=== PATIENT | female | born 1980 | race Caucasian/White ===

== ENCOUNTER 2020-08-29 11:34 | Outpatient (REF) | payer MEDICAID, SELFPAY ==
--- NOTE | ~2020-08-29 | US_ITS ---
EXAMINATION: PELVIC ULTRASOUND CLINICAL INFORMATION: Dysmenorrhea COMPARISON: Previous CT of the abdomen and pelvis April 2017 TECHNIQUE: Transabdominal and transvaginal pelvic ultrasound was performed. Transvaginal exam was performed for better visualization of the uterus and ovaries. FINDINGS: The uterus is anteverted and measures 11.9 x 4.3 x 5.9 cm in dimension. No focal uterine lesion is seen. Endometrial thickness is normal measuring 1 cm. The cervix is normal. The ovaries are seen transabdominally only. The ovaries are normal-appearing. The right ovary measures 4.3 x 2.2 x 3.1 cm and the left ovary measures 4.2 x 1.9 x 3.4 cm. No focal ovarian lesion is seen. There is no fluid in the pelvis. US/US pelvic complete IMPRESSION: Unremarkable exam.
--- NOTE | ~2020-08-29 | US_ITS ---
EXAMINATION: PELVIC ULTRASOUND CLINICAL INFORMATION: Dysmenorrhea COMPARISON: Previous CT of the abdomen and pelvis April 2017 TECHNIQUE: Transabdominal and transvaginal pelvic ultrasound was performed. Transvaginal exam was performed for better visualization of the uterus and ovaries. FINDINGS: The uterus is anteverted and measures 11.9 x 4.3 x 5.9 cm in dimension. No focal uterine lesion is seen. Endometrial thickness is normal measuring 1 cm. The cervix is normal. The ovaries are seen transabdominally only. The ovaries are normal-appearing. The right ovary measures 4.3 x 2.2 x 3.1 cm and the left ovary measures 4.2 x 1.9 x 3.4 cm. No focal ovarian lesion is seen. There is no fluid in the pelvis. US/US transvaginal IMPRESSION: Unremarkable exam.
== END 2020-08-29 11:35 | disposition home or self-care (01) ==
LOC: HO.US 11:34
PROVIDERS: PCP Internal Medicine; Visit Provider Internal Medicine
DX: N94.3 Premenstrual tension syndrome (principal); N94.6 Dysmenorrhea, unspecified
CPT/HCPCS: 76830; 76856

== ENCOUNTER 2021-01-04 09:41 | Emergency (ER) | payer MEDICAID, SELFPAY ==
--- NOTE | ~2021-01-04 | XR_ITS ---
EXAMINATION: CHEST AND RIGHT ANKLE X-RAY CLINICAL INFORMATION: Palpitations, chest pain and shortness of breath. Right ankle trauma. COMPARISON: None TECHNIQUE: One view of the chest and 3 views of the right ankle FINDINGS: Chest: The cardiac and mediastinal contours are normal. The lungs are clear. There is no pleural effusion or pneumothorax. Bony structures are unremarkable. Right ankle: Bone alignment is normal. No fracture or dislocation is seen. The ankle mortise is normal. There is a plantar calcaneal spur. There is lateral soft tissue swelling. XR/XR chest 1V IMPRESSION: Chest: Unremarkable exam. Right ankle: Lateral soft tissue swelling. No fracture seen.
--- NOTE | ~2021-01-04 | XR_ITS ---
EXAMINATION: CHEST AND RIGHT ANKLE X-RAY CLINICAL INFORMATION: Palpitations, chest pain and shortness of breath. Right ankle trauma. COMPARISON: None TECHNIQUE: One view of the chest and 3 views of the right ankle FINDINGS: Chest: The cardiac and mediastinal contours are normal. The lungs are clear. There is no pleural effusion or pneumothorax. Bony structures are unremarkable. Right ankle: Bone alignment is normal. No fracture or dislocation is seen. The ankle mortise is normal. There is a plantar calcaneal spur. There is lateral soft tissue swelling. XR/XR ankle RT 2V IMPRESSION: Chest: Unremarkable exam. Right ankle: Lateral soft tissue swelling. No fracture seen.
[2021-01-04 09:55] VITALS: BP 137/80; BP 182/78; PULSE 78; PULSE 90; RESP 16; TEMP 36.9; O2SAT 98; BMI 39.9
--- NOTE | 2021-01-04 09:57 | ECG_ITS ---
Test Reason : HEART PALP Blood Pressure : / mmHG Vent. Rate : 081 BPM Atrial Rate : 081 BPM P-R Int : 178 ms QRS Dur : 092 ms QT Int : 384 ms P-R-T Axes : 023 036 009 degrees QTc Int : 446 ms Normal sinus rhythm Possible Left atrial enlargement Borderline ECG No previous ECGs available Referred By: Sunitha Kahn Electronically Signed By:MAGGI SUTTON MD
[2021-01-04 11:11] VITALS: BP 118/80; PULSE 79
[2021-01-04 11:12] VITALS: BP 137/93; BP 138/84; PULSE 83; PULSE 92
[2021-01-04 11:27] LABS: MANUAL DIFF FLAG NO
[2021-01-04] MEDS: 0.9 % Sodium Chloride 1,000 ML 999 ML IVCONT (11:27)
[2021-01-04 11:30] LABS: Basophils Percent Auto 0.3 % (0-2); Eosinophils Absolute Auto 0.1 X10*3/uL (0.0-0.4); Eosinophils Percent Auto 0.9 % (0-4); Hematocrit 37.2 % (37-47); Hemoglobin 11.7 g/dl (12.0-16.0); Imm Gran Abs Auto 0.07 X10*3/uL (0.00-0.03); Imm Gran Pct Auto 0.6 % (0.0-0.4); Lymphocytes Absolute Auto 1.4 X10*3/uL (1.2-4.9); Lymphocytes Percent Auto 12.6 % (20-40); Mean Corpuscular HGB Conc 31.5 g/dl (31.0-35.0); Mean Corpuscular Hemoglobin 25.9 pg (27.0-33.0); Mean Corpuscular Volume 82.5 fL (80-98); Mean Platelet Volume 11.2 fL (9.4-12.3); Monocytes Absolute Auto 0.7 X10*3/uL (0.1-1.2); Monocytes Percent Auto 5.8 % (2-11); Neutrophils Absolute Auto 8.9 X10*3/uL (2.0-8.3); Neutrophils Percent Auto 79.8 % (45-73); Platelet Count 289 X10*3/uL (160-400); Red Blood Count 4.51 X10*6/uL (4.20-5.50); Red Cell Distribution Width 14.6 % (11.0-16.0); White Blood Count 11.2 X10*3/uL (4.8-10.8)
[2021-01-04 11:35] LABS: Glucose Urine UA NEG (NEG); Leukocyte Esterase Urine NEG (NEG); Nitrite Urine NEG (NEG); Specific Gravity - Urine 1.025 (1.005-1.025); Urine Blood NEG (NEG); Urine Ketones NEG (NEG); Urine Protein 1+ MG/DL (NEG-TRACE)
[2021-01-04 11:36] LABS: Appearance Urine HAZY; Color Urine YELLOW
[2021-01-04 11:37] LABS: UPreg QC Valid YES; Urine Pregnancy NEGATIVE (NEGATIVE)
[2021-01-04 11:42] LABS: Mucus Urine 1+ /LPF; RBC Urine 0 /HPF (0); Squamous Epithelial Cell Urine 1+ /LPF; WBC Urine 0 /HPF (0-4)
[2021-01-04 11:57] LABS: Troponin-I High Sensitivity < 3.5 ng/L (<3.5-17.0)
[2021-01-04 12:01] LABS: Alanine Aminotransferase 18 U/L (0-31); Alkaline Phosphatase 82 U/L (39-117); Anion Gap 13 (12-20); Aspartate Amino Transferase 24 U/L (5-31); Bilirubin Direct < 0.2 mg/dL (0.0-0.5); Bilirubin Total 0.2 mg/dL (0.0-1.0); Blood Urea Nitrogen 11 mg/dL (9-16); Carbon Dioxide 22 mmol/L (22-29); Chloride 109 mmol/L (96-108); Creatinine Clr Calc Pharmacy 120.7; Estimated Glomerular Filt Rate > 60; Glucose Random 106 mg/dL (60-115); Magnesium 2.2 mg/dL (1.6-2.6); Potassium 4.8 mmol/L (3.3-5.1); Sodium 139 mmol/L (135-145); Total Protein 7.1 g/dL (6.5-8.0)
[2021-01-04 12:05] VITALS: BP 129/84; PULSE 80; RESP 16; TEMP 36.8; O2SAT 98
[2021-01-04 12:14] LABS: TSH reflex Free T4 0.92 uIU/mL (0.32-4.0)
--- NOTE | 2021-01-04 12:16 | ED.GENADULT ---
HPI - General Adult General Chief complaint: General Medical Stated complaint: R Foot Pain Time Seen by Provider: 01/04/21 09:57 Source: patient and EMS Mode of arrival: EMS History of Present Illness HPI narrative: 40-year-old female with a past medical history of anxiety, PTSD, presenting to the ED via EMS complaining of right ankle pain/ swelling after missing a step and rolling ankle [employer]. admits was trying to catch her lift and missed the last step, fell down last stair caught herself by falling into a parked van, did hit head/arm on van, denies LOC or falling all the way to ground. Was not ambulatory on RLE after incident. Reports intermittent palpitations and intermittent lightheadedness x days, worse yesterday after walking around outside in the heat. Believes may be associated with increased anxiety/ stress home. Denies CP/SOB, fever, chills, visual change/loss, vomiting. admits to decreased p.o. intake/diet changes Does not take anticoagulation Related Data Previous Rx's Medication Instructions Recorded acetaminophen [Tylenol Extra 500 mg PO Q6H PRN #20 tab 01/04/21 Strength] naproxen 500 mg PO BID PRN 10 Days #20 tab 01/04/21 Allergies Allergy/AdvReac Type Severity Reaction Status Date / Time No Known Allergies Allergy Unverified 03/24/20 19:22 [No Known Allergies*] Review of Systems Review of Systems: Constitutional: No Fever, No Chills, No Night Sweats, No Fatigue, No Malaise ENT/Mouth: No Ear Pain, No Nasal Congestion, No Sinus Pain, No sore throat Eyes: No Eye Pain, No Discharge, No Vision Changes Cardiovascular: No Chest Pain, No SOB, No Edema, No Palpitations Respiratory: No Cough, No Dyspnea Gastrointestinal: + Nausea, No Vomiting, No Diarrhea, No Constipation, No Abdominal pain Genitourinary: No Dysuria, No Urinary Frequency, No Hematuria Musculoskeletal: +joint pain, No Myalgias, +Joint Swelling Skin: No Skin Lesions, No rash Neuro: No Weakness, No Numbness, No Paresthesias, No Loss of Consciousness, + lightheadedness, No dizziness, No Headache Yes all other systems are reviewed and are negative Neurologic: Denies Abnormal speech present PMFSH Past Medical History Attestation statement: The following information was validated with the patient. Medical History (Updated 01/04/21 @ 12:34 by SHELLY Thomas) Anxiety PTSD (post-traumatic stress disorder) Social History Social History Advance Directives: Yes Advance Directives Information Provided: Yes Advance Directives on File: No Patient : No Physical Exam Vital Signs: Vital Signs: Last Vital Signs Temp 98.2 F 01/04/21 12:05 Pulse 80 01/04/21 12:05 Resp 16 01/04/21 12:05 BP 129/84 01/04/21 12:05 Pulse Ox 98 01/04/21 12:05 Body Mass Index 39.9 Const: General: cooperative, healthy appearing and no acute distress Orientation/consciousness: patient oriented x3 Limitations: no limitations HENMT: Head: Yes normal to inspection and Yes atraumatic Ears: hearing grossly normal bilaterally General nose exam: Normal external nose present Face and sinus: Yes normal facial exam Throat: Yes posterior oropharynx normal Eyes: General: appearance normal, both eyes and all related structures Pupils: Equal, round and reactive pupils present EOM: EOMs intact bilaterally Neck: Neck: Yes normal visual inspection and Yes no meningeal signs Resp: Effort & Inspection: normal respiratory effort and not labored Cardio: Rate: regular rate Peripheral pulses: dorsalis pedis present GI: Inspection: Yes normal to inspection Palpation (GI): Soft to palpation, nontender, no guarding and not rigid Skin: Rashes: no rashes Wounds: no wounds Neuro: General: patient oriented x3, tone normal, moves all extremities, no meningeal signs, no focal motor deficits and CN's II-XI intact bilaterally Cranial nerves: Yes Equal, round and reactive pupils present Cognition (Neuro): normal cognition Speech: No Abnormal speech present Motor exam (neuro): 5/5 motor strength present throughout, Pronator motor function not present and no tremor noted Coordination: [id number] test normal Romberg Test: Negative Extrem: Other: right ankle with notable swelling greater to lateral aspect. Tender to palpation. Decreased ROM secondary to pain. Neurovascularly intact distally. Course Course Course Narrative: - labs unremarkable. Troponin negative, TSH WNL - UA not infected, negative - orthostatic vital signs negative XR chest 1V IMPRESSION: Chest: Unremarkable exam. XR ankle RT 2V Right ankle: Lateral soft tissue swelling. No fracture seen. >> patient placed in Aircast and supplied with crutches in the ED. Worrisome signs and symptoms and strict return precautions discussed, is to follow-up with PCP/cardiology Medical Decision Making MDM Narrative Medical decision making narrative: 40-year-old female with a past medical history of anxiety, PTSD, presenting to the ED via EMS complaining of right ankle pain/ swelling after missing a step and rolling ankle [employer]. Reports intermittent palpitations and intermittent lightheadedness x days, worse yesterday after walking around outside in the heat. On exam VSS, NAD, nontoxic appearing, physical exam as above. No focal neuro deficits. Right ankle with notable swelling and tenderness. Concern for ankle fracture vs sprain. Concern for metabolic abnormalities/ dehydration vs arrhythmia vs stress/anxiety. Symptoms atypical for ACS /PE. Low concern for ICH plan: EKG, labs, UA, CXR, ankle x-ray, IVF, orthostatics, reassess Lab Data Result diagrams: 01/04/21 11:14 01/04/21 11:14 Labs: Lab Results 01/04/21 01/04/21 01/04/21 Range/Units 11:14 11:14 11:14 WBC 11.2 H (4.8-10.8) X10*3/uL RBC 4.51 (4.20-5.50) X10*6/uL Hgb 11.7 L (12.0-16.0) g/dl Hct 37.2 (37-47) % MCV 82.5 (80-98) fL MCH 25.9 L (27.0-33.0) pg MCHC 31.5 (31.0-35.0) g/dl RDW 14.6 (11.0-16.0) % Plt Count 289 (160-400) X10*3/uL MPV 11.2 (9.4-12.3) fL Immature Gran % (Auto) 0.6 H (0.0-0.4) % Neut % (Auto) 79.8 H (45-73) % Lymph % (Auto) 12.6 L (20-40) % Pike % (Auto) 5.8 (2-11) % Eos % (Auto) 0.9 (0-4) % Baso % (Auto) 0.3 (0-2) % Lymph # (Auto) 1.4 (1.2-4.9) X10*3/uL Pike # (Auto) 0.7 (0.1-1.2) X10*3/uL Eos # (Auto) 0.1 (0.0-0.4) X10*3/uL Baso # (Auto) 0.0 (0.0-0.2) X10*3/uL Abs Immat Gran (auto) 0.07 H (0.00-0.03) X10*3/uL Absolute Neuts (auto) 8.9 H (2.0-8.3) X10*3/uL Absolute Nucleated RBC 0.000 (0.0-0.012) X10*3/uL Nucleated RBC % (auto) 0.0 (0.0-0.2) /100WBC Sodium 139 (135-145) mmol/L Potassium 4.8 (3.3-5.1) mmol/L Chloride 109 H (96-108) mmol/L Carbon Dioxide 22 (22-29) mmol/L Anion Gap 13 (12-20) BUN 11 (9-16) mg/dL Creatinine 0.76 (0.5-1.4) mg/dL Estim Creat Clear Calc 120.7 Estimated GFR > 60 Random Glucose 106 (60-115) mg/dL Calcium 9.0 (8.4-10.2) mg/dL Magnesium 2.2 (1.6-2.6) mg/dL Total Bilirubin 0.2 (0.0-1.0) mg/dL Direct Bilirubin < 0.2 (0.0-0.5) mg/dL AST 24 (5-31) U/L ALT 18 (0-31) U/L Alkaline Phosphatase 82 (39-117) U/L Troponin I High Sens < 3.5 (<3.5-17.0) ng/L Total Protein 7.1 (6.5-8.0) g/dL Albumin 4.0 (3.5-5.0) g/dL TSH 0.92 (0.32-4.0) uIU/mL Urine Color Urine Appearance Urine pH (5.0-8.0) Ur Specific [place] (1.005-1.025) Urine Protein (NEG-TRACE) MG/DL Urine Glucose (UA) (NEG) MG/DL Urine Ketones (NEG) MG/DL Urine Blood (NEG) Urine Nitrite (NEG) Ur Leukocyte Esterase (NEG) Urine RBC (0) /HPF Urine WBC (0-4) /HPF Ur Squamous Epith Cells /LPF Urine Bacteria /LPF Urine Mucus /LPF Urine Test (NEGATIVE) 01/04/21 01/04/21 Range/Units 11:24 11:24 WBC (4.8-10.8) X10*3/uL RBC (4.20-5.50) X10*6/uL Hgb (12.0-16.0) g/dl Hct (37-47) % MCV (80-98) fL MCH (27.0-33.0) pg MCHC (31.0-35.0) g/dl RDW (11.0-16.0) % Plt Count (160-400) X10*3/uL MPV (9.4-12.3) fL Immature Gran % (Auto) (0.0-0.4) % Neut % (Auto) (45-73) % Lymph % (Auto) (20-40) % Pike % (Auto) (2-11) % Eos % (Auto) (0-4) % Baso % (Auto) (0-2) % Lymph # (Auto) (1.2-4.9) X10*3/uL Pike # (Auto) (0.1-1.2) X10*3/uL Eos # (Auto) (0.0-0.4) X10*3/uL Baso # (Auto) (0.0-0.2) X10*3/uL Abs Immat Gran (auto) (0.00-0.03) X10*3/uL Absolute Neuts (auto) (2.0-8.3) X10*3/uL Absolute Nucleated RBC (0.0-0.012) X10*3/uL Nucleated RBC % (auto) (0.0-0.2) /100WBC Sodium (135-145) mmol/L Potassium (3.3-5.1) mmol/L Chloride (96-108) mmol/L Carbon Dioxide (22-29) mmol/L Anion Gap (12-20) BUN (9-16) mg/dL Creatinine (0.5-1.4) mg/dL Estim Creat Clear Calc Estimated GFR Random Glucose (60-115) mg/dL Calcium (8.4-10.2) mg/dL Magnesium (1.6-2.6) mg/dL Total Bilirubin (0.0-1.0) mg/dL Direct Bilirubin (0.0-0.5) mg/dL AST (5-31) U/L ALT (0-31) U/L Alkaline Phosphatase (39-117) U/L Troponin I High Sens (<3.5-17.0) ng/L Total Protein (6.5-8.0) g/dL Albumin (3.5-5.0) g/dL TSH (0.32-4.0) uIU/mL Urine Color YELLOW Urine Appearance HAZY Urine pH 6.0 (5.0-8.0) Ur Specific [place] 1.025 (1.005-1.025) Urine Protein 1+ H (NEG-TRACE) MG/DL Urine Glucose (UA) NEG (NEG) MG/DL Urine Ketones NEG (NEG) MG/DL Urine Blood NEG (NEG) Urine Nitrite NEG (NEG) Ur Leukocyte Esterase NEG (NEG) Urine RBC 0 (0) /HPF Urine WBC 0 (0-4) /HPF Ur Squamous Epith Cells 1+ /LPF Urine Bacteria NONE /LPF Urine Mucus 1+ /LPF Urine Test NEGATIVE (NEGATIVE) Discharge Plan Discharge Clinical Impression: Palpitations Ankle sprain Qualifiers: Encounter type: initial encounter Involved ligament of ankle: unspecified ligament Laterality: right Qualified Code(s): S93.401A - Sprain of unspecified ligament of right ankle, initial encounter Patient Disposition: Home, Self-Care Instructions: Heart Palpitations (ED), Ankle Sprain (ED) Additional Instructions: your blood work was reassuring today in the ED Your x-rays were unremarkable, you do have a sprained ankle Please wear Aircast at home as needed for comfort /stability, use crutches as needed ice and elevate her ankle, naproxen is anti-inflammatory/pain medication, take with food, in addition take Tylenol If her symptoms persist or worsen, your constant worsening palpitations, developed chest pain, shortness of breath, fever or chills please return to the ED immediately Prescriptions: New acetaminophen [Tylenol Extra Strength] 500 mg tablet 500 mg PO Q6H PRN (Reason: pain or fever) Qty: 20 RF: 0 naproxen 500 mg tablet 500 mg PO BID PRN (Reason: pain) 10 Days Qty: 20 RF: 0 Referrals: Jennie Dang MD [Primary Care Provider] - 2 days
== END 2021-01-04 12:48 | disposition home or self-care (01) ==
PROVIDERS: Physician Assistant; Emergency Provider Emergency Medicine; PCP Internal Medicine
DX: S93.401A Sprain of unspecified ligament of right ankle, initial encounter (principal); R00.2 Palpitations; W10.9XXA Fall (on) (from) unspecified stairs and steps, initial encounter; Y93.9 Activity, unspecified; Y92.410 Unspecified street and highway as the place of occurrence of the external cause; Y99.9 Unspecified external cause status
CPT/HCPCS: 36415; 71045; 73600; 80048; 80076; 81001; 81025; 83735; 84443; 84484; 85025; 93005; 96360; 99284

== ENCOUNTER 2022-06-26 17:09 | Emergency (ER) | payer MEDICAID, SELFPAY ==
--- NOTE | ~2022-06-26 | XR_ITS ---
EXAMINATION: XR CHEST CLINICAL INFORMATION: Shortness of breath, chest pain COMPARISON: None TECHNIQUE: 2 views of the chest were obtained. FINDINGS: No significant abnormality is noted involving the heart, lungs, mediastinum, bony thorax or soft tissues. XR/XR chest 2V IMPRESSION: Unremarkable chest examination.
[2022-06-26 17:29] VITALS: BP 154/82; PULSE 100; RESP 20; TEMP 36.4; O2SAT 99; BMI 44.9
--- NOTE | 2022-06-26 17:32 | ED_ITS ---
HPI - Chest Pain General Chief Complaint: Chest Pain <Ysabel Anderson CNP - Last Filed: 06/26/22 17:34> Stated Complaint: chest pain <Ysabel Anderson CNP - Last Filed: 06/26/22 17:34> Time Seen by Provider: 06/26/22 19:53 <Ysabel Anderson CNP - Last Filed: 06/26/22 17:34> Source: patient <SHELLY Grover - Last Filed: 06/26/22 21:52> Mode of arrival: ambulatory <SHELLY Grover - Last Filed: 06/26/22 21:52> Limitations: no limitations <SHELLY Grover - Last Filed: 06/26/22 21:52> History of Present Illness HPI narrative: This is a 42-year-old female past medical history significant for PTSD, anxiety presenting to the emergency department with substernal sharp/stabbing chest pain that started last night, pain is been intermittent in nature, varies in intensity, tells me it is pretty uncomfortable. Reports some associated shortness of breath as well as nausea with this. Tells me that this has never happened to her before. Tells me she has a history of anxiety however feels different. Tells me that her family at home is sick with similar symptoms.. Denies lower extremity swelling, fevers, chills, headache, vision changes, dizziness, weakness, vomiting, abdominal pain, changes in urination. No history of DVT or PE. No history of malignancy, not on contraception, no long periods of immobilization, not a smoker. Patient does not have her flu shot. Patient was COVID positive about a month ago. <SHELLY Grover - Last Filed: 06/26/22 21:52> Related Data Home Medications: Previous Rx's Medication Instructions Recorded acetaminophen 500 mg tablet 500 mg PO Q6H PRN pain or fever 01/04/21 (Tylenol Extra Strength) #20 tabs naproxen 500 mg tablet 500 mg PO BID PRN pain 10 days #20 01/04/21 tabs ondansetron 4 mg disintegrating 4 mg PO Q6H PRN nausea and 06/26/22 tablet vomiting #14 tabs oseltamivir 75 mg capsule (Tamiflu) 75 mg PO BID 5 days #10 caps 06/26/22 <Ysabel Anderson CNP - Last Filed: 06/26/22 17:34> Allergies/Adverse Reactions: Allergies Allergy/AdvReac Type Severity Reaction Status Date / Time No Known Allergies Allergy Unverified 03/24/20 19:22 [No Known Allergies*] <Ysabel Anderson CNP - Last Filed: 06/26/22 17:34> Review of Systems Review of Systems: Constitutional : No Weight loss, No Fever, No Chills, No Fatigue, No Malaise ENT/Mouth : No sore throat, No Rhinorrhea Eyes: No Eye Pain, No Swelling, No Redness Cardiovascular : + Chest Pain, + SOB, No Dyspnea on Exertion, No Orthopnea, No Edema, No Palpitations Respiratory : No Cough, No Sputum, No Wheezing Gastrointestinal : + Nausea, No Vomiting, No Diarrhea, No Constipation, No abdominal Pain, No Hematochezia, No Melena Genitourinary : No Dysuria, No Urinary Frequency, No Hematuria, Musculoskeletal : No joint pain, No Myalgias, No Joint Swelling Skin : No Skin Lesions, No rash Neuro : No Weakness, No Numbness, No Dizziness, No Headache Psych : No Anxiety/Panic, No Depression All other systems reviewed and are negative <SHELLY Grover - Last Filed: 06/26/22 21:52> Yes all other systems are reviewed and are negative <SHELLY Grover - Last Filed: 06/26/22 21:52> PMFSH Past Medical History Attestation statement: The following information was validated with the patient. <SHELLY Grover - Last Filed: 06/26/22 21:52> Source: old records reviewed and nursing notes reviewed <SHELLY Grover - Last Filed: 06/26/22 21:52> Medical History: Medical History Anxiety PTSD (post-traumatic stress disorder) <Ysabel Anderson CNP - Last Filed: 06/26/22 17:34> Social History Social History: Social History Alcohol intake: never Smoked in Last 30 Days: No Use of substances other than those prescribed or required for medical reasons: No Advance Directives: No Advance Directives Information Provided: No <Ysabel Anderson CNP - Last Filed: 06/26/22 17:34> Physical Exam Vital Signs: Vital Signs: Last Vital Signs Temp 98.5 F 06/26/22 21:25 Pulse 78 06/26/22 21:25 Resp 18 06/26/22 21:25 BP 120/75 06/26/22 21:25 Pulse Ox 98 06/26/22 21:25 O2 Del Method 06/26/22 21:25 BMI result Body Mass Index 44.9 <Ysabel Anedrson CNP - Last Filed: 06/26/22 17:34> Vital Signs: Last Vital Signs Temp 98.5 F 06/26/22 21:25 Pulse 78 06/26/22 21:25 Resp 18 06/26/22 21:25 BP 120/75 06/26/22 21:25 Pulse Ox 98 06/26/22 21:25 O2 Del Method 06/26/22 21:25 BMI result Body Mass Index 44.9 Vital signs stable <SHELLY Grover - Last Filed: 06/26/22 21:52> Appearance: Alert.? Oriented X3.? No acute distress.? Patient well-appearing. Head: Normocephalic, atraumatic, no step-offs or deformities Eyes: Pupils equal, round and reactive to light.? ENT: Pharynx normal.? Neck: Normal inspection.? Neck supple.? CVS: Normal heart rate and rhythm.? Pulses normal.? Respiratory: No respiratory distress.? Breath sounds normal.? Abdomen: Soft and nontender.? Skin: Skin warm and dry.? Normal skin color.? Normal skin turgor.? Extremities: No lower extremity edema.? No calf ttp, negative Morales bilaterally. 5/5 strength to bilateral upper and lower extremities Neuro: Oriented X 3.? No motor deficit.? No sensory deficit. CN 2-12 intact . Ambulating with steady gait normal coordination <SHELLY Grover - Last Filed: 06/26/22 21:52> Course Course Course Narrative: RME: Patient is a 42-year-old female who presents emergency department for evaluation of chest pain. She states that pain began last night/early this morning it awoke her from her sleep. It is described as a sharp as well as dull pain with pressure, felt substernally. Pain is been intermittent with varying intensity. Also endorses intermittent shortness of breath and nausea associated with this. Denies fevers, chills vomiting, numbness or tingling in the extremities. Denies any pertinent past medical history. Denies history of DVT/PE, personal history of cancer, oral contraceptive usage, recent surgery prolonged immobilization, tobacco smoking. Overall she is well-appearing. Speaking clear full sentences. Plan: Labs, EKG, chest x-ray, viral testing, urinalysis, urine <Ysabel Anderson CNP - Last Filed: 06/26/22 17:34> Reevaluation(s) Reevaluation #1: CBC appears to be around patient's baseline. Chemistry with no acute findings requiring intervention. Troponin negative, EKG nonischemic unlikely ACS. UA negative patient noted to be positive for influenza. D-dimer and repeat troponin pending. Patient will likely be discharged home. <SHELLY Grover - Last Filed: 06/26/22 21:52> Time: 20:09 <SHELLY Grover - Last Filed: 06/26/22 21:52> Reevaluation #2: Troponin, D-dimer negative. Patient reporting she is pain free. At this time patient will be discharged home with PCP in cardiology follow-up. Educated patient on diagnosis and treatment plan, answered all question, patient verbalizes understanding. At this time patient will be discharged home, advised to return with new or worsening symptoms. Educated on worrisome signs and symptoms and when to return. At this time I feel comfortable discharge home. <SHELLY Grover - Last Filed: 06/26/22 21:52> Medical Decision Making Lab Data Result Diagrams: : 06/26/22 18:31 06/26/22 18:31 <Ysabel Anderson CNP - Last Filed: 06/26/22 17:34> Labs: Lab Results 12/20/22 12/20/22 12/20/22 Range/Units 18:30 18:30 18:30 WBC (4.8-10.8) X10*3/uL RBC (4.20-5.50) X10*6/uL Hgb (12.0-16.0) g/dl Hct (37.0-47.0) % MCV (80.0-98.0) fL MCH (27.0-33.0) pg MCHC (31.0-35.0) g/dl RDW (11.0-16.0) % Plt Count (160-400) X10*3/uL MPV (9.4-12.3) fL Immature Gran % (Auto) (0.0-0.4) % Neut % (Auto) (45-73) % Lymph % (Auto) (20-40) % Harrison % (Auto) (2-11) % Eos % (Auto) (0-4) % Baso % (Auto) (0-2) % Lymph # (Auto) (1.2-4.9) X10*3/uL Harrison # (Auto) (0.1-1.2) X10*3/uL Eos # (Auto) (0.0-0.4) X10*3/uL Baso # (Auto) (0.0-0.2) X10*3/uL Abs Immat Gran (auto) (0.00-0.03) X10*3/uL Absolute Neuts (auto) (2.0-8.3) x10*3/uL Absolute Nucleated RBC (0.0-0.012) X10*3/uL Nucleated RBC % (auto) (0.0-0.2) /100WBC D-Dimer High Sensitivty NG/ML Sodium (135-145) mmol/L Potassium (3.3-5.1) mmol/L Chloride (96-108) mmol/L Carbon Dioxide (22-29) mmol/L Anion Gap (12-20) BUN (9-16) mg/dL Creatinine (0.5-1.4) mg/dL Estim Creat Clear Calc Estimated GFR Random Glucose (60-115) mg/dL Calcium (8.4-10.2) mg/dL Magnesium (1.6-2.6) mg/dL Total Bilirubin (0.0-1.0) mg/dL AST (5-31) U/L ALT (0-31) U/L Alkaline Phosphatase (39-117) U/L Troponin I High Sens (<3.5-17.0) ng/L Total Protein (6.5-8.0) g/dL Albumin (3.5-5.0) g/dL Urine Color Yellow Urine Appearance Clear Urine pH 6.5 (5.0-9.0) Ur Specific Rentz 1.015 (1.005-1.025) Urine Protein Trace (Neg-Trace) mg/dL Urine Glucose (UA) Negative (Negative) mg/dL Urine Ketones Trace (Negative) mg/dL Urine Blood Negative (Negative) Urine Nitrite Negative (Negative) Ur Leukocyte Esterase Negative (Negative) Urine Test NEGATIVE (NEGATIVE) COVID-19 (MONIKA) Negative (Negative) COVID-19 Clin Com See Note Influenza Type A (BECK) (Negative) Influenza Type B (BECK) (Negative) Influenza A & B Note 06/26/22 06/26/22 06/26/22 Range/Units 18:31 18:31 18:31 WBC 6.1 (4.8-10.8) X10*3/uL RBC 4.64 (4.20-5.50) X10*6/uL Hgb 11.6 L (12.0-16.0) g/dl Hct 36.9 L (37.0-47.0) % MCV 79.5 L (80.0-98.0) fL MCH 25.0 L (27.0-33.0) pg MCHC 31.4 (31.0-35.0) g/dl RDW 14.5 (11.0-16.0) % Plt Count 260 (160-400) X10*3/uL MPV 10.2 (9.4-12.3) fL Immature Gran % (Auto) 0.3 (0.0-0.4) % Neut % (Auto) 65.1 (45-73) % Lymph % (Auto) 27.2 (20-40) % Harrison % (Auto) 6.5 (2-11) % Eos % (Auto) 0.7 (0-4) % Baso % (Auto) 0.2 (0-2) % Lymph # (Auto) 1.7 (1.2-4.9) X10*3/uL Harrison # (Auto) 0.4 (0.1-1.2) X10*3/uL Eos # (Auto) 0.0 (0.0-0.4) X10*3/uL Baso # (Auto) 0.0 (0.0-0.2) X10*3/uL Abs Immat Gran (auto) 0.02 (0.00-0.03) X10*3/uL Absolute Neuts (auto) 4.0 (2.0-8.3) x10*3/uL Absolute Nucleated RBC 0.000 (0.0-0.012) X10*3/uL Nucleated RBC % (auto) 0.0 (0.0-0.2) /100WBC D-Dimer High Sensitivty NG/ML Sodium 140 (135-145) mmol/L Potassium 3.6 D (3.3-5.1) mmol/L Chloride 107 (96-108) mmol/L Carbon Dioxide 24 (22-29) mmol/L Anion Gap 13 (12-20) BUN 11 (9-16) mg/dL Creatinine 0.83 (0.5-1.4) mg/dL Estim Creat Clear Calc 115.9 Estimated GFR > 60 Random Glucose 106 (60-115) mg/dL Calcium 9.1 (8.4-10.2) mg/dL Magnesium 2.2 (1.6-2.6) mg/dL Total Bilirubin 0.5 (0.0-1.0) mg/dL AST 25 (5-31) U/L ALT 25 (0-31) U/L Alkaline Phosphatase 78 (39-117) U/L Troponin I High Sens < 3.5 (<3.5-17.0) ng/L Total Protein 7.0 (6.5-8.0) g/dL Albumin 4.3 (3.5-5.0) g/dL Urine Color Urine Appearance Urine pH (5.0-9.0) Ur Specific Rentz (1.005-1.025) Urine Protein (Neg-Trace) mg/dL Urine Glucose (UA) (Negative) mg/dL Urine Ketones (Negative) mg/dL Urine Blood (Negative) Urine Nitrite (Negative) Ur Leukocyte Esterase (Negative) Urine Test (NEGATIVE) COVID-19 (MONIKA) (Negative) COVID-19 Clin Com Influenza Type A (BECK) (Negative) Influenza Type B (BECK) (Negative) Influenza A & B Note 06/26/22 06/26/22 06/26/22 Range/Units 18:31 20:26 20:26 WBC (4.8-10.8) X10*3/uL RBC (4.20-5.50) X10*6/uL Hgb (12.0-16.0) g/dl Hct (37.0-47.0) % MCV (80.0-98.0) fL MCH (27.0-33.0) pg MCHC (31.0-35.0) g/dl RDW (11.0-16.0) % Plt Count (160-400) X10*3/uL MPV (9.4-12.3) fL Immature Gran % (Auto) (0.0-0.4) % Neut % (Auto) (45-73) % Lymph % (Auto) (20-40) % Harrison % (Auto) (2-11) % Eos % (Auto) (0-4) % Baso % (Auto) (0-2) % Lymph # (Auto) (1.2-4.9) X10*3/uL Harrison # (Auto) (0.1-1.2) X10*3/uL Eos # (Auto) (0.0-0.4) X10*3/uL Baso # (Auto) (0.0-0.2) X10*3/uL Abs Immat Gran (auto) (0.00-0.03) X10*3/uL Absolute Neuts (auto) (2.0-8.3) x10*3/uL Absolute Nucleated RBC (0.0-0.012) X10*3/uL Nucleated RBC % (auto) (0.0-0.2) /100WBC D-Dimer High Sensitivty < 150 NG/ML Sodium (135-145) mmol/L Potassium (3.3-5.1) mmol/L Chloride (96-108) mmol/L Carbon Dioxide (22-29) mmol/L Anion Gap (12-20) BUN (9-16) mg/dL Creatinine (0.5-1.4) mg/dL Estim Creat Clear Calc Estimated GFR Random Glucose (60-115) mg/dL Calcium (8.4-10.2) mg/dL Magnesium (1.6-2.6) mg/dL Total Bilirubin (0.0-1.0) mg/dL AST (5-31) U/L ALT (0-31) U/L Alkaline Phosphatase (39-117) U/L Troponin I High Sens < 3.5 (<3.5-17.0) ng/L Total Protein (6.5-8.0) g/dL Albumin (3.5-5.0) g/dL Urine Color Urine Appearance Urine pH (5.0-9.0) Ur Specific Rentz (1.005-1.025) Urine Protein (Neg-Trace) mg/dL Urine Glucose (UA) (Negative) mg/dL Urine Ketones (Negative) mg/dL Urine Blood (Negative) Urine Nitrite (Negative) Ur Leukocyte Esterase (Negative) Urine Test (NEGATIVE) COVID-19 (MONIKA) (Negative) COVID-19 Clin Com Influenza Type A (BECK) Positive A (Negative) Influenza Type B (BECK) Negative (Negative) Influenza A & B Note See Note <Ysabel Anderson, YAHIR - Last Filed: 06/26/22 17:34> Lab Results 06/26/22 06/26/22 06/26/22 Range/Units 18:30 18:30 18:30 WBC (4.8-10.8) X10*3/uL RBC (4.20-5.50) X10*6/uL Hgb (12.0-16.0) g/dl Hct (37.0-47.0) % MCV (80.0-98.0) fL MCH (27.0-33.0) pg MCHC (31.0-35.0) g/dl RDW (11.0-16.0) % Plt Count (160-400) X10*3/uL MPV (9.4-12.3) fL Immature Gran % (Auto) (0.0-0.4) % Neut % (Auto) (45-73) % Lymph % (Auto) (20-40) % Harrison % (Auto) (2-11) % Eos % (Auto) (0-4) % Baso % (Auto) (0-2) % Lymph # (Auto) (1.2-4.9) X10*3/uL Harrison # (Auto) (0.1-1.2) X10*3/uL Eos # (Auto) (0.0-0.4) X10*3/uL Baso # (Auto) (0.0-0.2) X10*3/uL Abs Immat Gran (auto) (0.00-0.03) X10*3/uL Absolute Neuts (auto) (2.0-8.3) x10*3/uL Absolute Nucleated RBC (0.0-0.012) X10*3/uL Nucleated RBC % (auto) (0.0-0.2) /100WBC D-Dimer High Sensitivty NG/ML Sodium (135-145) mmol/L Potassium (3.3-5.1) mmol/L Chloride (96-108) mmol/L Carbon Dioxide (22-29) mmol/L Anion Gap (12-20) BUN (9-16) mg/dL Creatinine (0.5-1.4) mg/dL Estim Creat Clear Calc Estimated GFR Random Glucose (60-115) mg/dL Calcium (8.4-10.2) mg/dL Magnesium (1.6-2.6) mg/dL Total Bilirubin (0.0-1.0) mg/dL AST (5-31) U/L ALT (0-31) U/L Alkaline Phosphatase (39-117) U/L Troponin I High Sens (<3.5-17.0) ng/L Total Protein (6.5-8.0) g/dL Albumin (3.5-5.0) g/dL Urine Color Yellow Urine Appearance Clear Urine pH 6.5 (5.0-9.0) Ur Specific Rentz 1.015 (1.005-1.025) Urine Protein Trace (Neg-Trace) mg/dL Urine Glucose (UA) Negative (Negative) mg/dL Urine Ketones Trace (Negative) mg/dL Urine Blood Negative (Negative) Urine Nitrite Negative (Negative) Ur Leukocyte Esterase Negative (Negative) Urine Test NEGATIVE (NEGATIVE) COVID-19 (MONIKA) Negative (Negative) COVID-19 Clin Com See Note Influenza Type A (BECK) (Negative) Influenza Type B (BECK) (Negative) Influenza A & B Note 06/26/22 06/26/22 06/26/22 Range/Units 18:31 18:31 18:31 WBC 6.1 (4.8-10.8) X10*3/uL RBC 4.64 (4.20-5.50) X10*6/uL Hgb 11.6 L (12.0-16.0) g/dl Hct 36.9 L (37.0-47.0) % MCV 79.5 L (80.0-98.0) fL MCH 25.0 L (27.0-33.0) pg MCHC 31.4 (31.0-35.0) g/dl RDW 14.5 (11.0-16.0) % Plt Count 260 (160-400) X10*3/uL MPV 10.2 (9.4-12.3) fL Immature Gran % (Auto) 0.3 (0.0-0.4) % Neut % (Auto) 65.1 (45-73) % Lymph % (Auto) 27.2 (20-40) % Harrison % (Auto) 6.5 (2-11) % Eos % (Auto) 0.7 (0-4) % Baso % (Auto) 0.2 (0-2) % Lymph # (Auto) 1.7 (1.2-4.9) X10*3/uL Harrison # (Auto) 0.4 (0.1-1.2) X10*3/uL Eos # (Auto) 0.0 (0.0-0.4) X10*3/uL Baso # (Auto) 0.0 (0.0-0.2) X10*3/uL Abs Immat Gran (auto) 0.02 (0.00-0.03) X10*3/uL Absolute Neuts (auto) 4.0 (2.0-8.3) x10*3/uL Absolute Nucleated RBC 0.000 (0.0-0.012) X10*3/uL Nucleated RBC % (auto) 0.0 (0.0-0.2) /100WBC D-Dimer High Sensitivty NG/ML Sodium 140 (135-145) mmol/L Potassium 3.6 D (3.3-5.1) mmol/L Chloride 107 (96-108) mmol/L Carbon Dioxide 24 (22-29) mmol/L Anion Gap 13 (12-20) BUN 11 (9-16) mg/dL Creatinine 0.83 (0.5-1.4) mg/dL Estim Creat Clear Calc 115.9 Estimated GFR > 60 Random Glucose 106 (60-115) mg/dL Calcium 9.1 (8.4-10.2) mg/dL Magnesium 2.2 (1.6-2.6) mg/dL Total Bilirubin 0.5 (0.0-1.0) mg/dL AST 25 (5-31) U/L ALT 25 (0-31) U/L Alkaline Phosphatase 78 (39-117) U/L Troponin I High Sens < 3.5 (<3.5-17.0) ng/L Total Protein 7.0 (6.5-8.0) g/dL Albumin 4.3 (3.5-5.0) g/dL Urine Color Urine Appearance Urine pH (5.0-9.0) Ur Specific Rentz (1.005-1.025) Urine Protein (Neg-Trace) mg/dL Urine Glucose (UA) (Negative) mg/dL Urine Ketones (Negative) mg/dL Urine Blood (Negative) Urine Nitrite (Negative) Ur Leukocyte Esterase (Negative) Urine Test (NEGATIVE) COVID-19 (MONIKA) (Negative) COVID-19 Clin Com Influenza Type A (BECK) (Negative) Influenza Type B (BECK) (Negative) Influenza A & B Note 06/26/22 06/26/22 06/26/22 Range/Units 18:31 20:26 20:26 WBC (4.8-10.8) X10*3/uL RBC (4.20-5.50) X10*6/uL Hgb (12.0-16.0) g/dl Hct (37.0-47.0) % MCV (80.0-98.0) fL MCH (27.0-33.0) pg MCHC (31.0-35.0) g/dl RDW (11.0-16.0) % Plt Count (160-400) X10*3/uL MPV (9.4-12.3) fL Immature Gran % (Auto) (0.0-0.4) % Neut % (Auto) (45-73) % Lymph % (Auto) (20-40) % Harrison % (Auto) (2-11) % Eos % (Auto) (0-4) % Baso % (Auto) (0-2) % Lymph # (Auto) (1.2-4.9) X10*3/uL Harrison # (Auto) (0.1-1.2) X10*3/uL Eos # (Auto) (0.0-0.4) X10*3/uL Baso # (Auto) (0.0-0.2) X10*3/uL Abs Immat Gran (auto) (0.00-0.03) X10*3/uL Absolute Neuts (auto) (2.0-8.3) x10*3/uL Absolute Nucleated RBC (0.0-0.012) X10*3/uL Nucleated RBC % (auto) (0.0-0.2) /100WBC D-Dimer High Sensitivty < 150 NG/ML Sodium (135-145) mmol/L Potassium (3.3-5.1) mmol/L Chloride (96-108) mmol/L Carbon Dioxide (22-29) mmol/L Anion Gap (12-20) BUN (9-16) mg/dL Creatinine (0.5-1.4) mg/dL Estim Creat Clear Calc Estimated GFR Random Glucose (60-115) mg/dL Calcium (8.4-10.2) mg/dL Magnesium (1.6-2.6) mg/dL Total Bilirubin (0.0-1.0) mg/dL AST (5-31) U/L ALT (0-31) U/L Alkaline Phosphatase (39-117) U/L Troponin I High Sens < 3.5 (<3.5-17.0) ng/L Total Protein (6.5-8.0) g/dL Albumin (3.5-5.0) g/dL Urine Color Urine Appearance Urine pH (5.0-9.0) Ur Specific Rentz (1.005-1.025) Urine Protein (Neg-Trace) mg/dL Urine Glucose (UA) (Negative) mg/dL Urine Ketones (Negative) mg/dL Urine Blood (Negative) Urine Nitrite (Negative) Ur Leukocyte Esterase (Negative) Urine Test (NEGATIVE) COVID-19 (MONIKA) (Negative) COVID-19 Clin Com Influenza Type A (BECK) Positive A (Negative) Influenza Type B (BECK) Negative (Negative) Influenza A & B Note See Note <SHELLY Grover - Last Filed: 06/26/22 21:52> Critical Care Time Critical Care Time Critical Care Time: No <SHELLY Grover - Last Filed: 06/26/22 21:52> Discharge Plan Discharge Clinical Impression: Chest pain, Influenza A <Ysabel Anderson CNP - Last Filed: 06/26/22 17:34> Patient Disposition: Home, Self-Care <Ysabel Anderson CNP - Last Filed: 06/26/22 17:34> Instructions: Chest Pain (DC), Influenza (ED) <Ysabel Anderson CNP - Last Filed: 06/26/22 17:34> Additional Instructions: Take your medications as prescribed. If you were prescribed antibiotics today, it is important that you take your medication to their entirety, do not skip any doses, do not finish them early. Follow-up with your primary care provider this week. Follow-up with cardiology if pain persists Return to the emergency department with new or worsening symptoms. Such as fevers, chills, chest pain, shortness of breath, nausea, vomiting, dizziness, headache, vision changes, lethargy In case of emergency call 911 You tested positive for flu. Please wash her hands well. Your contagious. Please drink plenty of fluids. <Ysabel Anderson CNP - Last Filed: 06/26/22 17:34> Prescriptions: New oseltamivir [Tamiflu] 75 mg capsule 75 mg PO BID 5 Days Qty: 10 0RF ondansetron 4 mg tablet,disintegrating 4 mg PO Q6H PRN (Reason: nausea and vomiting) Qty: 14 0RF No Action acetaminophen [Tylenol Extra Strength] 500 mg tablet 500 mg PO Q6H PRN (Reason: pain or fever) Qty: 20 0RF naproxen 500 mg tablet 500 mg PO BID PRN (Reason: pain) 10 Days Qty: 20 0RF <Ysabel Anderson CNP - Last Filed: 06/26/22 17:34> Referrals: [facility] [place] Group] - 1 week Anyi Dietz MD [Primary Care Provider] - 2 days <Ysabel Anderson CNP - Last Filed: 06/26/22 17:34> Stand Alone Forms: Work/School Release <Ysabel Anderson CNP - Last Filed: 06/26/22 17:34> Interventions: ED Discharge Assessment Last Done: 06/26/22 21:45 <Ysabel Anderson CNP - Last Filed: 06/26/22 17:34> Discharge Date/Time: 06/26/22 21:47 <Ysabel Anderson CNP - Last Filed: 06/26/22 17:34>
--- NOTE | 2022-06-26 17:34 | ECG_ITS ---
Test Reason : CHEST PAIN Blood Pressure : / mmHG Vent. Rate : 087 BPM Atrial Rate : 087 BPM P-R Int : 164 ms QRS Dur : 088 ms QT Int : 380 ms P-R-T Axes : 018 037 009 degrees QTc Int : 457 ms Normal sinus rhythm Normal ECG When compared with ECG of 04-JAN-2021 10:36, No significant change was found Referred By: Ysabel Anderson Electronically Signed By:Chris Cooney
[2022-06-26 18:36] LABS: MANUAL DIFF FLAG NO
[2022-06-26 18:39] LABS: Appearance Urine Clear; Color Urine Yellow; Glucose Urine UA Negative (Negative); Leukocyte Esterase Urine Negative (Negative); Nitrite Urine Negative (Negative); PH 6.5 (5.0-9.0); Specific Gravity - Urine 1.015 (1.005-1.025); Urine Blood Negative (Negative); Urine Ketones Trace mg/dL (Negative); Urine Protein Trace mg/dL (Neg-Trace)
[2022-06-26 18:40] LABS: UPreg QC Valid YES; Urine Pregnancy NEGATIVE (NEGATIVE)
[2022-06-26 18:43] LABS: Basophils Percent Auto 0.2 % (0-2); Eosinophils Percent Auto 0.7 % (0-4); Hematocrit 36.9 % (37.0-47.0); Hemoglobin 11.6 g/dl (12.0-16.0); Imm Gran Abs Auto 0.02 X10*3/uL (0.00-0.03); Imm Gran Pct Auto 0.3 % (0.0-0.4); Lymphocytes Absolute Auto 1.7 X10*3/uL (1.2-4.9); Lymphocytes Percent Auto 27.2 % (20-40); Mean Corpuscular HGB Conc 31.4 g/dl (31.0-35.0); Mean Corpuscular Volume 79.5 fL (80.0-98.0); Mean Platelet Volume 10.2 fL (9.4-12.3); Monocytes Absolute Auto 0.4 X10*3/uL (0.1-1.2); Monocytes Percent Auto 6.5 % (2-11); Neutrophils Percent Auto 65.1 % (45-73); Platelet Count 260 X10*3/uL (160-400); Red Blood Count 4.64 X10*6/uL (4.20-5.50); Red Cell Distribution Width 14.5 % (11.0-16.0); White Blood Count 6.1 X10*3/uL (4.8-10.8)
[2022-06-26 19:00] LABS: Alanine Aminotransferase 25 U/L (0-31); Albumin Level 4.3 g/dL (3.5-5.0); Alkaline Phosphatase 78 U/L (39-117); Anion Gap 13 (12-20); Aspartate Amino Transferase 25 U/L (5-31); Bilirubin Total 0.5 mg/dL (0.0-1.0); Blood Urea Nitrogen 11 mg/dL (9-16); Calcium 9.1 mg/dL (8.4-10.2); Carbon Dioxide 24 mmol/L (22-29); Chloride 107 mmol/L (96-108); Creatinine Clr Calc Pharmacy 115.9; Estimated Glomerular Filt Rate > 60; Glucose Random 106 mg/dL (60-115); Magnesium 2.2 mg/dL (1.6-2.6); Potassium 3.6 mmol/L (3.3-5.1); Sodium 140 mmol/L (135-145)
[2022-06-26 19:00] LABS: COVID-19 Test Negative (Negative); IDNOW Serial# 16C4AD1C
[2022-06-26 19:01] LABS: IDNOW Serial# BCCEAD1C; Influenza A Positive (Negative); Influenza B2 Negative (Negative)
[2022-06-26 19:12] LABS: Troponin-I High Sensitivity < 3.5 ng/L (<3.5-17.0)
--- NOTE | 2022-06-26 20:36 | PC.NURSE ---
Pt resting in bed, A&Ox4, GCS 15, stating no chest pain but discomfort and short of breath. Pt answered all questions appropriately. Stated she is having thoughts of hurting herself but is seeing a therapist and has an at-home therapist. I asked if she would like to see someone here and she declined. Pt given a glass of water, per request.
[2022-06-26 21:04] LABS: Troponin-I High Sensitivity < 3.5 ng/L (<3.5-17.0)
[2022-06-26 21:21] LABS: D Dimer High Sensitivity < 150 NG/ML
[2022-06-26 21:25] VITALS: BP 120/75; PULSE 78; RESP 18; TEMP 36.9; O2SAT 98
== END 2022-06-26 21:47 | disposition home or self-care (01) ==
PROVIDERS: Nurse Practitioner Family; Physician Assistant; Emergency Provider Emergency Medicine; PCP Internal Medicine
DX: J11.1 Influenza due to unidentified influenza virus with other respiratory manifestations (principal); R07.9 Chest pain, unspecified; Z20.822 Contact with and (suspected) exposure to COVID-19; F41.9 Anxiety disorder, unspecified; F43.10 Post-traumatic stress disorder, unspecified
CPT/HCPCS: 36415; 71046; 80053; 81003; 81025; 83735; 84484; 85025; 85379; 87502; 87635; 93005; 99283; 99285

== ENCOUNTER 2023-03-27 08:06 | Emergency (ER) | payer OTHER, SELFPAY ==
--- NOTE | ~2023-03-27 | CT_ITS ---
EXAMINATION: CT ABDOMEN AND PELVIS WITHOUT CONTRAST CLINICAL INFORMATION: Right-sided flank pain COMPARISON: CT abdomen pelvis 05/06/2017 TECHNIQUE: Multidetector volumetric imaging was performed from the superior aspect of the liver through the pubic symphysis. Sagittal and coronal reformatted images were obtained on the technologist's workstation. This CT examination was performed using dose optimization techniques as appropriate, variously including the following: *Automated exposure control *Adjustment of mA and/or kV according to patient size (this includes techniques or standardized protocols for targeted exams where dose is matched to indication/reason for exam; i.e. extremities or head) *Use of iterative reconstruction technique DLP: 921 mGy-cm FINDINGS: Visualized lung bases are well aerated. The liver is normal in size but demonstrates diffusely decreased attenuation. Gallstones are noted within an otherwise unremarkable appearing gallbladder. The spleen is mildly enlarged measuring 13.8 cm in AP dimension. There is a medial splenule noted. The pancreas and adrenal glands are unremarkable. Symmetrically sized kidneys. A few tiny nonobstructing calculi are noted within both kidneys. Also noted is a 3 mm calcification within the right ureterovesical junction. There is no associated hydronephrosis. Normal caliber loops of small and large bowel. Normal caliber abdominal aorta. No retroperitoneal lymphadenopathy. Interval development of a left ventral abdominal hernia which contains only fat. Fascial defect of this hernia measures approximately 2.3 x 2.2 cm in transverse by craniocaudal dimension. The herniated sac measures approximately 6.8 cm. The bladder demonstrates normal distention. Unremarkable CT appearance of the uterus. No gross free pelvic fluid. No inguinal lymphadenopathy. Shotty bilateral inguinal lymph nodes. No acute osseous abnormality. CT/CT abdomen pelvis wo IV con IMPRESSION: 1. 3 mm calcification within the right ureterovesical junction. There is no associated hydronephrosis. 2. Tiny nonobstructing renal calculi are noted bilaterally. 3. Cholelithiasis. 4. Diffusely decreased liver attenuation suggesting hepatic steatosis. Correlation with liver enzymes recommended. 5. Mild splenomegaly. 6. Interval development of a left ventral abdominal hernia which contains only fat. Fascial defect of this hernia measures approximately 2.3 x 2.2 cm in transverse by craniocaudal dimension. The herniated sac measures approximately 6.8 cm. Fleischner guidelines were followed.
[2023-03-27 08:39] VITALS: BP 141/85; PULSE 100; RESP 18; TEMP 37.6; O2SAT 97; BMI 41.3
[2023-03-27 09:00] LABS: MANUAL DIFF FLAG NO
[2023-03-27 09:02] LABS: Basophils Percent Auto 0.2 % (0-2); Eosinophils Percent Auto 0.2 % (0-4); Hematocrit 35.9 % (37.0-47.0); Hemoglobin 11.7 g/dl (12.0-16.0); Imm Gran Abs Auto 0.11 X10*3/uL (0.00-0.03); Imm Gran Pct Auto 0.7 % (0.0-0.4); Lymphocytes Absolute Auto 0.7 X10*3/uL (1.2-4.9); Lymphocytes Percent Auto 4.4 % (20-40); Mean Corpuscular HGB Conc 32.6 g/dl (31.0-35.0); Mean Corpuscular Hemoglobin 25.7 pg (27.0-33.0); Mean Corpuscular Volume 78.7 fL (80.0-98.0); Mean Platelet Volume 10.6 fL (9.4-12.3); Monocytes Absolute Auto 1.4 X10*3/uL (0.1-1.2); Neutrophils Absolute Auto 13.7 x10*3/uL (2.0-8.3); Neutrophils Percent Auto 85.5 % (45-73); Platelet Count 278 X10*3/uL (160-400); Red Blood Count 4.56 X10*6/uL (4.20-5.50); Red Cell Distribution Width 14.8 % (11.0-16.0)
[2023-03-27 09:14] LABS: Appearance Urine Clear; Color Urine Dark Yellow; Glucose Urine UA Negative (Negative); Leukocyte Esterase Urine Moderate (2+) (Negative); Nitrite Urine Negative (Negative); UMIC TRIGGER UACC YES; Urine Blood Trace (Negative); Urine Ketones Trace mg/dL (Negative); Urine Protein 30 (1+) mg/dL (Neg-Trace)
[2023-03-27 09:16] LABS: Bacteria Urine 1+ (None Seen); UACC Culture Trigger YES; WBC Urine >50 /HPF (0-5)
[2023-03-27 09:17] LABS: Alanine Aminotransferase 23 U/L (0-31); Alkaline Phosphatase 122 U/L (39-117); Anion Gap 13 (12-20); Aspartate Amino Transferase 24 U/L (5-31); Bilirubin Total 0.9 mg/dL (0.0-1.0); Blood Urea Nitrogen 9 mg/dL (9-16); Calcium 9.3 mg/dL (8.4-10.2); Carbon Dioxide 22 mmol/L (22-29); Chloride 108 mmol/L (96-108); Creatinine Clr Calc Pharmacy 106.5; Estimated Glomerular Filt Rate > 60; Glucose Random 126 mg/dL (60-115); Lipase 15 U/L (8-78); Magnesium 1.9 mg/dL (1.6-2.6); Potassium 3.5 mmol/L (3.3-5.1); Sodium 139 mmol/L (135-145); Total Protein 7.4 g/dL (6.5-8.0)
--- NOTE | 2023-03-27 10:40 | ED.ABDPAIN ---
HPI - Abdominal Pain General Chief Complaint: Back Pain/Injury Stated Complaint: kidney pain Time Seen by Provider: 03/27/23 10:35 Source: patient and old records reviewed Mode of arrival: ambulatory Limitations: no limitations History of Present Illness HPI narrative: 42 yo female with no hx of kidney stones and ureteral stent back in 2013 notes 4 days ago she had R flank pain that she thought was a stone so she tried to hydrate and pass the stone. She then noted chills two days ago that worsened yesterday and she checked a home temp of 104. She then noted some urinary symptoms flank pain and then nausea. She is able to tolerate PO. MD elicited complaint: flank pain Pertinent past history: kidney stones Onset (ago): day(s) (4) Pain Consistency: intermittent Location: R flank Severity: mild Quality: aching Radiation: suprapubic Migration to: no migration Exacerbating factors: nothing Relieving factors: nothing Context: history of similar episodes Associated symptoms: nausea, fever, chills, dysuria and hematuria Related Data Previous Rx's Medication Instructions Recorded acetaminophen 500 mg tablet 500 mg PO Q6H PRN pain or fever 01/04/21 (Tylenol Extra Strength) #20 tabs naproxen 500 mg tablet 500 mg PO BID PRN pain 10 days #20 01/04/21 tabs ondansetron 4 mg disintegrating 4 mg PO Q6H PRN nausea and 06/26/22 tablet vomiting #14 tabs oseltamivir 75 mg capsule (Tamiflu) 75 mg PO BID 5 days #10 caps 06/26/22 levofloxacin 750 mg tablet 750 mg PO DAILY #9 tabs 03/27/23 Allergies Allergy/AdvReac Type Severity Reaction Status Date / Time No Known Allergies Allergy Verified 03/27/23 08:43 [No Known Allergies*] Review of Systems Review of Systems Constitutional : pos Fever, pos Chills ENT/Mouth : No sore throat Eyes: No Eye Pain, No Swelling, No Redness Cardiovascular : No Chest Pain, No SOB Respiratory : No Cough, No Sputum, No Wheezing Gastrointestinal : positive Nausea, no Vomiting, No Diarrhea, positive abdominal pain Genitourinary : positive Dysuria, positive urinary frequency, positive Hematuria, positive Flank Pain, no hesitancy Musculoskeletal : No joint pain, No Myalgias Skin : No Skin Lesions, No rash Neuro : No Weakness, No Numbness, No Headache Psych : No Anxiety/Panic, No Depression Heme/Lymph: No Bruising, No Lymphadenopathy Endocrine : No Polyuria, No Polydipsia All other systems reviewed and are negative [facility] Past Medical History Attestation statement: The following information was validated with the patient. Medical History Kidney stone Anxiety PTSD (post-traumatic stress disorder) Social History Social History (Updated 03/27/23 @ 10:42 by Meri Mack DO) Alcohol intake: never Patient Tobacco Use Status: Never used Tobacco Smoked in Last 30 Days: No Use of substances other than those prescribed or required for medical reasons: No Advance Directives: No Physical Exam ED Vital Signs: Vital Signs - 24 hr 03/27/23 08:39 03/27/23 12:10 Temperature 99.6 F 98.4 F Pulse Rate 100 85 Respiratory Rate 18 16 Blood Pressure 141/85 H 118/78 Pulse Oximetry 97 97 Oxygen Delivery Method Room Air Room Air BMI result Body Mass Index 41.3 Appearance: Alert. Oriented X3. No acute distress. Eyes: Pupils equal, round and reactive to light. ENT: Pharynx normal. Neck: Normal inspection. Neck supple. CVS: Normal heart rate and rhythm. Pulses normal. Respiratory: No respiratory distress. Breath sounds normal. Abdomen: Soft and nontender. Back: mild R CVA ttp Skin: Skin warm and dry. Normal skin color. Normal skin turgor. Extremities: No lower extremity edema. No calf ttp Neuro: Oriented X 3. No motor deficit. No sensory deficit. Course Course Course Narrative: infection suspected 1105am. Reevaluation(s) Reevaluation #1: no vomiting, pain well controlled can be DC home Medical Decision Making Medical Decision Making MDM Narrative: 42 yo female with PMH of kidney stones now with urinary symptoms, fevers/chills, flank pain at this time will need labs, IVF, IV toradol - lactic acid, cultures and CT scan for renal colic - empiric ceftriaxone. She is not vomiting and able to tolerate PO if no infected stone she may be able to trial oral antibiotoics such as levofloxacin given normal lactic acid and stable VS. suspect stone vs pyelonephritis. Differential Diagnosis Differential Diagnoses: The differential diagnosis associated with the presentation includes kidney stones, UTI, pyelonephritis Admission/Observation Consideration of admission/observation: Escalation of care including admission/observation considered not toxic, tolerating PO, VS stable, lactic acid negative, reliable to follow up Consult Healthcare Provider Management of the patient was discussed with: Global Regulatory Affairs Manager (Dr. Burch aware - will likely pass without intervention) Lab Data MDM Lab Attestation statement: I reviewed the patient's lab results. 03/27/23 08:55 03/27/23 08:55 Labs: Lab Results 03/27/23 03/27/23 03/27/23 Range/Units 08:55 08:55 08:55 WBC 16.0 H (4.8-10.8) X10*3/uL RBC 4.56 (4.20-5.50) X10*6/uL Hgb 11.7 L (12.0-16.0) g/dl Hct 35.9 L (37.0-47.0) % MCV 78.7 L (80.0-98.0) fL MCH 25.7 L (27.0-33.0) pg MCHC 32.6 (31.0-35.0) g/dl RDW 14.8 (11.0-16.0) % Plt Count 278 (160-400) X10*3/uL MPV 10.6 (9.4-12.3) fL Immature Gran % (Auto) 0.7 H (0.0-0.4) % Neut % (Auto) 85.5 H (45-73) % Lymph % (Auto) 4.4 L (20-40) % [place] % (Auto) 9.0 (2-11) % Eos % (Auto) 0.2 (0-4) % Baso % (Auto) 0.2 (0-2) % Lymph # (Auto) 0.7 L (1.2-4.9) X10*3/uL [place] # (Auto) 1.4 H (0.1-1.2) X10*3/uL Eos # (Auto) 0.0 (0.0-0.4) X10*3/uL Baso # (Auto) 0.0 (0.0-0.2) X10*3/uL Abs Immat Gran (auto) 0.11 H (0.00-0.03) X10*3/uL Absolute Neuts (auto) 13.7 H (2.0-8.3) x10*3/uL Absolute Nucleated RBC 0.000 (0.0-0.012) X10*3/uL Nucleated RBC % (auto) 0.0 (0.0-0.2) /100WBC Sodium 139 (135-145) mmol/L Potassium 3.5 (3.3-5.1) mmol/L Chloride 108 (96-108) mmol/L Carbon Dioxide 22 (22-29) mmol/L Anion Gap 13 (12-20) BUN 9 (9-16) mg/dL Creatinine 0.86 (0.5-1.4) mg/dL Estim Creat Clear Calc 106.5 Estimated GFR > 60 Random Glucose 126 H (60-115) mg/dL Lactic Acid (0.5-2.0) mmol/L Calcium 9.3 (8.4-10.2) mg/dL Magnesium 1.9 (1.6-2.6) mg/dL Total Bilirubin 0.9 (0.0-1.0) mg/dL AST 24 (5-31) U/L ALT 23 (0-31) U/L Alkaline Phosphatase 122 H (39-117) U/L Total Protein 7.4 (6.5-8.0) g/dL Albumin 4.0 (3.5-5.0) g/dL Lipase 15 (8-78) U/L Urine Color Dark Yellow Cancelled Urine Appearance Clear Cancelled Urine pH 6.0 (5.0-9.0) Ur Specific [place] (1.005-1.025) Urine Protein (Neg-Trace) mg/dL Urine Glucose (UA) (Negative) mg/dL Urine Ketones (Negative) mg/dL Urine Blood (Negative) Urine Nitrite (Negative) Ur Leukocyte Esterase (Negative) Urine RBC (0-2) /HPF Urine WBC (0-5) /HPF Urine WBC Clumps Ur Squamous Epith Cells (0-2) /HPF Ur Transition Epith Cell Ur Renal Epithelial Cell Calcium Oxalate Crystal Leucine Crystals Cystine Crystals Tyrosine Crystals Other Crystals Urine Bacteria (None Seen) Urine Parasites Bilirubin Casts Epithelial Casts Fatty Casts Hyaline Casts (0-2) /LPF Granular Casts Waxy Casts Broad Casts RBC Casts WBC Casts Other Casts Urine Trichomonas Urine Yeast Urine Test (NEGATIVE) 03/27/23 03/27/23 03/27/23 Range/Units 08:55 08:55 08:55 WBC (4.8-10.8) X10*3/uL RBC (4.20-5.50) X10*6/uL Hgb (12.0-16.0) g/dl Hct (37.0-47.0) % MCV (80.0-98.0) fL MCH (27.0-33.0) pg MCHC (31.0-35.0) g/dl RDW (11.0-16.0) % Plt Count (160-400) X10*3/uL MPV (9.4-12.3) fL Immature Gran % (Auto) (0.0-0.4) % Neut % (Auto) (45-73) % Lymph % (Auto) (20-40) % [place] % (Auto) (2-11) % Eos % (Auto) (0-4) % Baso % (Auto) (0-2) % Lymph # (Auto) (1.2-4.9) X10*3/uL [place] # (Auto) (0.1-1.2) X10*3/uL Eos # (Auto) (0.0-0.4) X10*3/uL Baso # (Auto) (0.0-0.2) X10*3/uL Abs Immat Gran (auto) (0.00-0.03) X10*3/uL Absolute Neuts (auto) (2.0-8.3) x10*3/uL Absolute Nucleated RBC (0.0-0.012) X10*3/uL Nucleated RBC % (auto) (0.0-0.2) /100WBC Sodium (135-145) mmol/L Potassium (3.3-5.1) mmol/L Chloride (96-108) mmol/L Carbon Dioxide (22-29) mmol/L Anion Gap (12-20) BUN (9-16) mg/dL Creatinine (0.5-1.4) mg/dL Estim Creat Clear Calc Estimated GFR Random Glucose (60-115) mg/dL Lactic Acid (0.5-2.0) mmol/L Calcium (8.4-10.2) mg/dL Magnesium (1.6-2.6) mg/dL Total Bilirubin (0.0-1.0) mg/dL AST (5-31) U/L ALT (0-31) U/L Alkaline Phosphatase (39-117) U/L Total Protein (6.5-8.0) g/dL Albumin (3.5-5.0) g/dL Lipase (8-78) U/L Urine Color Urine Appearance Urine pH Cancelled (5.0-9.0) Ur Specific [place] 1.020 Cancelled (1.005-1.025) Urine Protein 30 (1+) H Cancelled (Neg-Trace) mg/dL Urine Glucose (UA) Negative (Negative) mg/dL Urine Ketones (Negative) mg/dL Urine Blood (Negative) Urine Nitrite (Negative) Ur Leukocyte Esterase (Negative) Urine RBC (0-2) /HPF Urine WBC (0-5) /HPF Urine WBC Clumps Ur Squamous Epith Cells (0-2) /HPF Ur Transition Epith Cell Ur Renal Epithelial Cell Calcium Oxalate Crystal Leucine Crystals Cystine Crystals Tyrosine Crystals Other Crystals Urine Bacteria (None Seen) Urine Parasites Bilirubin Casts Epithelial Casts Fatty Casts Hyaline Casts (0-2) /LPF Granular Casts Waxy Casts Broad Casts RBC Casts WBC Casts Other Casts Urine Trichomonas Urine Yeast Urine Test (NEGATIVE) 03/27/23 03/27/23 03/27/23 Range/Units 08:55 08:55 08:55 WBC (4.8-10.8) X10*3/uL RBC (4.20-5.50) X10*6/uL Hgb (12.0-16.0) g/dl Hct (37.0-47.0) % MCV (80.0-98.0) fL MCH (27.0-33.0) pg MCHC (31.0-35.0) g/dl RDW (11.0-16.0) % Plt Count (160-400) X10*3/uL MPV (9.4-12.3) fL Immature Gran % (Auto) (0.0-0.4) % Neut % (Auto) (45-73) % Lymph % (Auto) (20-40) % [place] % (Auto) (2-11) % Eos % (Auto) (0-4) % Baso % (Auto) (0-2) % Lymph # (Auto) (1.2-4.9) X10*3/uL [place] # (Auto) (0.1-1.2) X10*3/uL Eos # (Auto) (0.0-0.4) X10*3/uL Baso # (Auto) (0.0-0.2) X10*3/uL Abs Immat Gran (auto) (0.00-0.03) X10*3/uL Absolute Neuts (auto) (2.0-8.3) x10*3/uL Absolute Nucleated RBC (0.0-0.012) X10*3/uL Nucleated RBC % (auto) (0.0-0.2) /100WBC Sodium (135-145) mmol/L Potassium (3.3-5.1) mmol/L Chloride (96-108) mmol/L Carbon Dioxide (22-29) mmol/L Anion Gap (12-20) BUN (9-16) mg/dL Creatinine (0.5-1.4) mg/dL Estim Creat Clear Calc Estimated GFR Random Glucose (60-115) mg/dL Lactic Acid (0.5-2.0) mmol/L Calcium (8.4-10.2) mg/dL Magnesium (1.6-2.6) mg/dL Total Bilirubin (0.0-1.0) mg/dL AST (5-31) U/L ALT (0-31) U/L Alkaline Phosphatase (39-117) U/L Total Protein (6.5-8.0) g/dL Albumin (3.5-5.0) g/dL Lipase (8-78) U/L Urine Color Urine Appearance Urine pH (5.0-9.0) Ur Specific [place] (1.005-1.025) Urine Protein (Neg-Trace) mg/dL Urine Glucose (UA) Cancelled (Negative) mg/dL Urine Ketones Trace Cancelled (Negative) mg/dL Urine Blood Trace H Cancelled (Negative) Urine Nitrite Negative (Negative) Ur Leukocyte Esterase (Negative) Urine RBC (0-2) /HPF Urine WBC (0-5) /HPF Urine WBC Clumps Ur Squamous Epith Cells (0-2) /HPF Ur Transition Epith Cell Ur Renal Epithelial Cell Calcium Oxalate Crystal Leucine Crystals Cystine Crystals Tyrosine Crystals Other Crystals Urine Bacteria (None Seen) Urine Parasites Bilirubin Casts Epithelial Casts Fatty Casts Hyaline Casts (0-2) /LPF Granular Casts Waxy Casts Broad Casts RBC Casts WBC Casts Other Casts Urine Trichomonas Urine Yeast Urine Test (NEGATIVE) 03/27/23 03/27/23 03/27/23 Range/Units 08:55 08:55 08:55 WBC (4.8-10.8) X10*3/uL RBC (4.20-5.50) X10*6/uL Hgb (12.0-16.0) g/dl Hct (37.0-47.0) % MCV (80.0-98.0) fL MCH (27.0-33.0) pg MCHC (31.0-35.0) g/dl RDW (11.0-16.0) % Plt Count (160-400) X10*3/uL MPV (9.4-12.3) fL Immature Gran % (Auto) (0.0-0.4) % Neut % (Auto) (45-73) % Lymph % (Auto) (20-40) % [place] % (Auto) (2-11) % Eos % (Auto) (0-4) % Baso % (Auto) (0-2) % Lymph # (Auto) (1.2-4.9) X10*3/uL [place] # (Auto) (0.1-1.2) X10*3/uL Eos # (Auto) (0.0-0.4) X10*3/uL Baso # (Auto) (0.0-0.2) X10*3/uL Abs Immat Gran (auto) (0.00-0.03) X10*3/uL Absolute Neuts (auto) (2.0-8.3) x10*3/uL Absolute Nucleated RBC (0.0-0.012) X10*3/uL Nucleated RBC % (auto) (0.0-0.2) /100WBC Sodium (135-145) mmol/L Potassium (3.3-5.1) mmol/L Chloride (96-108) mmol/L Carbon Dioxide (22-29) mmol/L Anion Gap (12-20) BUN (9-16) mg/dL Creatinine (0.5-1.4) mg/dL Estim Creat Clear Calc Estimated GFR Random Glucose (60-115) mg/dL Lactic Acid (0.5-2.0) mmol/L Calcium (8.4-10.2) mg/dL Magnesium (1.6-2.6) mg/dL Total Bilirubin (0.0-1.0) mg/dL AST (5-31) U/L ALT (0-31) U/L Alkaline Phosphatase (39-117) U/L Total Protein (6.5-8.0) g/dL Albumin (3.5-5.0) g/dL Lipase (8-78) U/L Urine Color Urine Appearance Urine pH (5.0-9.0) Ur Specific [place] (1.005-1.025) Urine Protein (Neg-Trace) mg/dL Urine Glucose (UA) (Negative) mg/dL Urine Ketones (Negative) mg/dL Urine Blood (Negative) Urine Nitrite Cancelled (Negative) Ur Leukocyte Esterase Moderate (2+) H Cancelled (Negative) Urine RBC 3-5 H Cancelled (0-2) /HPF Urine WBC >50 H (0-5) /HPF Urine WBC Clumps Ur Squamous Epith Cells (0-2) /HPF Ur Transition Epith Cell Ur Renal Epithelial Cell Calcium Oxalate Crystal Leucine Crystals Cystine Crystals Tyrosine Crystals Other Crystals Urine Bacteria (None Seen) Urine Parasites Bilirubin Casts Epithelial Casts Fatty Casts Hyaline Casts (0-2) /LPF Granular Casts Waxy Casts Broad Casts RBC Casts WBC Casts Other Casts Urine Trichomonas Urine Yeast Urine Test (NEGATIVE) 03/27/23 03/27/23 03/27/23 Range/Units 08:55 08:55 08:55 WBC (4.8-10.8) X10*3/uL RBC (4.20-5.50) X10*6/uL Hgb (12.0-16.0) g/dl Hct (37.0-47.0) % MCV (80.0-98.0) fL MCH (27.0-33.0) pg MCHC (31.0-35.0) g/dl RDW (11.0-16.0) % Plt Count (160-400) X10*3/uL MPV (9.4-12.3) fL Immature Gran % (Auto) (0.0-0.4) % Neut % (Auto) (45-73) % Lymph % (Auto) (20-40) % [place] % (Auto) (2-11) % Eos % (Auto) (0-4) % Baso % (Auto) (0-2) % Lymph # (Auto) (1.2-4.9) X10*3/uL [place] # (Auto) (0.1-1.2) X10*3/uL Eos # (Auto) (0.0-0.4) X10*3/uL Baso # (Auto) (0.0-0.2) X10*3/uL Abs Immat Gran (auto) (0.00-0.03) X10*3/uL Absolute Neuts (auto) (2.0-8.3) x10*3/uL Absolute Nucleated RBC (0.0-0.012) X10*3/uL Nucleated RBC % (auto) (0.0-0.2) /100WBC Sodium (135-145) mmol/L Potassium (3.3-5.1) mmol/L Chloride (96-108) mmol/L Carbon Dioxide (22-29) mmol/L Anion Gap (12-20) BUN (9-16) mg/dL Creatinine (0.5-1.4) mg/dL Estim Creat Clear Calc Estimated GFR Random Glucose (60-115) mg/dL Lactic Acid (0.5-2.0) mmol/L Calcium (8.4-10.2) mg/dL Magnesium (1.6-2.6) mg/dL Total Bilirubin (0.0-1.0) mg/dL AST (5-31) U/L ALT (0-31) U/L Alkaline Phosphatase (39-117) U/L Total Protein (6.5-8.0) g/dL Albumin (3.5-5.0) g/dL Lipase (8-78) U/L Urine Color Urine Appearance Urine pH (5.0-9.0) Ur Specific [place] (1.005-1.025) Urine Protein (Neg-Trace) mg/dL Urine Glucose (UA) (Negative) mg/dL Urine Ketones (Negative) mg/dL Urine Blood (Negative) Urine Nitrite (Negative) Ur Leukocyte Esterase (Negative) Urine RBC (0-2) /HPF Urine WBC Cancelled (0-5) /HPF Urine WBC Clumps Cancelled Ur Squamous Epith Cells 6-10 Cancelled (0-2) /HPF Ur Transition Epith Cell Cancelled Ur Renal Epithelial Cell Cancelled Calcium Oxalate Crystal Cancelled Leucine Crystals Cancelled Cystine Crystals Cancelled Tyrosine Crystals Cancelled Other Crystals Cancelled Urine Bacteria 1+ Cancelled (None Seen) Urine Parasites Cancelled Bilirubin Casts Cancelled Epithelial Casts Cancelled Fatty Casts Cancelled Hyaline Casts 3-5 (0-2) /LPF Granular Casts Waxy Casts Broad Casts RBC Casts WBC Casts Other Casts Urine Trichomonas Urine Yeast Urine Test (NEGATIVE) 03/27/23 03/27/23 Range/Units 08:55 10:48 WBC (4.8-10.8) X10*3/uL RBC (4.20-5.50) X10*6/uL Hgb (12.0-16.0) g/dl Hct (37.0-47.0) % MCV (80.0-98.0) fL MCH (27.0-33.0) pg MCHC (31.0-35.0) g/dl RDW (11.0-16.0) % Plt Count (160-400) X10*3/uL MPV (9.4-12.3) fL Immature Gran % (Auto) (0.0-0.4) % Neut % (Auto) (45-73) % Lymph % (Auto) (20-40) % [place] % (Auto) (2-11) % Eos % (Auto) (0-4) % Baso % (Auto) (0-2) % Lymph # (Auto) (1.2-4.9) X10*3/uL [place] # (Auto) (0.1-1.2) X10*3/uL Eos # (Auto) (0.0-0.4) X10*3/uL Baso # (Auto) (0.0-0.2) X10*3/uL Abs Immat Gran (auto) (0.00-0.03) X10*3/uL Absolute Neuts (auto) (2.0-8.3) x10*3/uL Absolute Nucleated RBC (0.0-0.012) X10*3/uL Nucleated RBC % (auto) (0.0-0.2) /100WBC Sodium (135-145) mmol/L Potassium (3.3-5.1) mmol/L Chloride (96-108) mmol/L Carbon Dioxide (22-29) mmol/L Anion Gap (12-20) BUN (9-16) mg/dL Creatinine (0.5-1.4) mg/dL Estim Creat Clear Calc Estimated GFR Random Glucose (60-115) mg/dL Lactic Acid 0.6 (0.5-2.0) mmol/L Calcium (8.4-10.2) mg/dL Magnesium (1.6-2.6) mg/dL Total Bilirubin (0.0-1.0) mg/dL AST (5-31) U/L ALT (0-31) U/L Alkaline Phosphatase (39-117) U/L Total Protein (6.5-8.0) g/dL Albumin (3.5-5.0) g/dL Lipase (8-78) U/L Urine Color Urine Appearance Urine pH (5.0-9.0) Ur Specific [place] (1.005-1.025) Urine Protein (Neg-Trace) mg/dL Urine Glucose (UA) (Negative) mg/dL Urine Ketones (Negative) mg/dL Urine Blood (Negative) Urine Nitrite (Negative) Ur Leukocyte Esterase (Negative) Urine RBC (0-2) /HPF Urine WBC (0-5) /HPF Urine WBC Clumps Ur Squamous Epith Cells (0-2) /HPF Ur Transition Epith Cell Ur Renal Epithelial Cell Calcium Oxalate Crystal Leucine Crystals Cystine Crystals Tyrosine Crystals Other Crystals Urine Bacteria (None Seen) Urine Parasites Bilirubin Casts Epithelial Casts Fatty Casts Hyaline Casts Cancelled (0-2) /LPF Granular Casts Cancelled Waxy Casts Cancelled Broad Casts Cancelled RBC Casts Cancelled WBC Casts Cancelled Other Casts Cancelled Urine Trichomonas Cancelled Urine Yeast Cancelled Urine Test NEGATIVE (NEGATIVE) Independent Interpretation I performed an independent interpretation of an: CT Scan Radiology Impression Discussion of test interpretation with radiology: I have reviewed the radiologist's reading. External Record Review External record reviewed: Prior outpatient labs no prior micro for UA Prescription Management I considered prescription management with: Pain Medication and Antibiotic Medications Administered Discontinued Medications Generic Name Dose Route Start Last Admin Trade Name Freq PRN Reason Stop Dose Admin Sodium Chloride 1,000 mls @ 999 mls/hr 03/27/23 10:45 03/27/23 12:30 Ns IV 03/27/23 11:45 Infused .Q1H1M JEFF Infusion Ceftriaxone Sodium 2 gm/ 50 mls @ 100 mls/hr 03/27/23 11:05 03/27/23 12:00 Sodium Chloride IV 03/27/23 11:34 Infused ONCE ONE Infusion Sodium Chloride 1,000 mls @ 999 mls/hr 03/27/23 11:30 03/27/23 13:17 Ns IV 03/27/23 12:30 999 mls/hr .Q1H1M JEFF Administration Ketorolac Tromethamine 15 mg 03/27/23 10:40 03/27/23 11:31 Ketorolac Tromethamine 15 Mg/Ml Vial IVPUSH 03/27/23 10:41 15 mg ONCE ONE Administration Ondansetron HCl 4 mg 03/27/23 10:40 03/27/23 11:34 Ondansetron Hcl 4 Mg/2 Ml Vial IVPUSH 03/27/23 10:41 Not Given ONCE ONE Critical Care Time Critical Care Time Critical Care Time: Yes Total Critical Care Time: 31 Attestation: 2L of IVF, work up for infection, consult to urology I attest to this time spent taking care of the patient Discharge Plan Discharge Clinical Impression: Pyelonephritis, Renal colic Patient Disposition: Home, Self-Care Instructions: Renal Colic (ED), Kidney Infection (ED) Additional Instructions: return for fevers, worsening pain, you cannot tolerate oral and cannot take antibiotics. you feel you haven't passed the stone in the next 3 days. or any other concerns. also no strenuous exercise while on antibiotics it can affect your tendon Prescriptions: New levofloxacin 750 mg tablet 750 mg PO DAILY Qty: 9 0RF No Action acetaminophen [Tylenol Extra Strength] 500 mg tablet 500 mg PO Q6H PRN (Reason: pain or fever) Qty: 20 0RF naproxen 500 mg tablet 500 mg PO BID PRN (Reason: pain) 10 Days Qty: 20 0RF oseltamivir [Tamiflu] 75 mg capsule 75 mg PO BID 5 Days Qty: 10 0RF ondansetron 4 mg tablet,disintegrating 4 mg PO Q6H PRN (Reason: nausea and vomiting) Qty: 14 0RF Referrals: Len Burch MD [Physician] - (call if not better in 2 days) Stand Alone Forms: Work/School Release Interventions: ED Discharge Assessment Last Done: 03/27/23 14:18 Discharge Date/Time: 03/27/23 14:19
[2023-03-27 11:11] LABS: Lactic Acid 0.6 mmol/L (0.5-2.0)
[2023-03-27] MEDS: 0.9 % Sodium Chloride 1,000 ML 999 ML IV ×2 (11:26→13:17)
[2023-03-27] MEDS: Ketorolac Tromethamine 15 MG/ML VIAL IVPUSH (11:31)
[2023-03-27] MEDS: cefTRIAXone sodium 2 GM in 0.9 % Sodium Chloride 50 ML IV (11:32)
--- NOTE | 2023-03-27 11:55 | PC.NURSE ---
pt a&0 x4, pleasant, calm, and cooperative. sitting up on stretcher, ambulates self to bathroom. reporting 2/10 pain to bilateral flank. 20G IV established to LAC, labs drawn and sent. pt medicated per sep. fluids infusing. pt refused zofran, sts not nauseous at moment. will ask for it if gets nauseous. pt currently resting quietly on stretcher in no apparent distress. rr even/unlabored. call murphy within pt reach. all pt needs met joanna.
[2023-03-27 12:10] VITALS: BP 118/78; PULSE 85; RESP 16; TEMP 36.9; O2SAT 97
[2023-03-27 12:28] LABS: UPreg QC Valid YES; Urine Pregnancy NEGATIVE (NEGATIVE)
== END 2023-03-27 14:19 | disposition home or self-care (01) ==
PROVIDERS: Physician Assistant; Emergency Provider Emergency Medicine; PCP Internal Medicine
DX: N12 Tubulo-interstitial nephritis, not specified as acute or chronic (principal); N23 Unspecified renal colic; R30.0 Dysuria; Z79.899 Other long term (current) drug therapy
CPT/HCPCS: 36415; 74176; 80053; 81001; 81025; 83605; 83690; 83735; 85025; 87040; 87086; 87088; 87186; 96361; 96374; 96375; 99284; J0696; J1885

== ENCOUNTER 2023-05-02 09:43 | Outpatient (AMB) | payer OTHER, SELFPAY ==
--- NOTE | 2023-05-02 09:46 | A.OFFVIS_ITS ---
Intake Intake Visit Reasons: nephrolithiasis Intake Note: NEW Patient presents today to established treatment for Nephrolithiasis: Meds- None Allergies to Antibiotic- No Known Allergies Blood Thinner- None Patient Symptoms: None Tuyere Fitter Required: No Accompanied by: Self / Same As Patient Allergies No Known Allergies [No Known Allergies*] Allergy (Verified 03/27/23 08:43) HPI HPI Comments History of Present Illness Details Ingirs is a 42-year-old female who presents today to the office to establish as a new patient for an evaluation of nephrolithiasis. 05/02/2023? 42 yo female with hx of kidney stones a nd ureteral stent back in 2012. She was seen in the [facility] emergency room on 03/29/23 with complaints of right flank pain, nause, chills and fever. Patient was discharged on Levaquin 750 mg no. 9 tabletes. She states she is feeling much better. She feels that she passed the stone I reviewed the CT abdomen/pelvis results from 03/27/2023 revealed 3 mm calcification within the right ureterovesical junction. There is no associated hydronephrosis. Tiny nonobstructing renal calculi are noted bilaterally. I reviewed the urine culture results from 03/27/2023 which came back Escherichia coli > 100,000 cfu/mL Examination: Abdomen is soft, non tender; no CVA tenderness. Evaluation today?UA? leukocytes: negative; blood: negative. Plan: Advised to take 5 more days of Abx. Bactrim DS prescribed. Discussed metabolic work up. 24-hour urine collection test. Follow-up in 12 weeks to discuss the results. [facility] Medical History (Updated 06/04/23 @ 11:47 by Yeimi Quijano MD) Pyelonephritis Kidney stone Anxiety PTSD (post-traumatic stress disorder) Surgical History Hx of one miscarriage Hx of nephrolithotomy with removal of calculi Family History Father No problems noted. Mother No problems noted. Alcohol intake: current Alcohol intake frequency: a few times a month Patient Tobacco Use Status: Never used Tobacco Review of Systems Const All systems reviewed & are unremarkable except as noted in HPI and below Reports no additional complaints Eyes Reports no additional complaints ENT Reports no additional complaints Card Denies dyspnea Resp Denies cough and Denies dyspnea GI Reports no additional complaints Reports no additional complaints Musc Reports no additional complaints Skin/Breast Denies rash and Denies unusual bruising Neuro Reports no additional complaints Psych Reports no additional complaints Endo Reports no additional complaints Salbador/Lymph Reports no additional complaints Aller/Immun Reports no additional complaints Physical Exam Const General: cooperative, healthy appearing and no acute distress Orientation/consciousness: patient oriented x3 HEENT Head: Yes normal to inspection, Yes normocephalic and Yes atraumatic Eyes Conjunctivae: conjunctivae normal Neck Neck: Yes normal visual inspection and Yes trachea midline Chest Chest palpation & inspection: normal inspection of the chest Resp Effort & Inspection: normal respiratory effort Cardio Rate: regular rate GI Inspection: Yes normal to inspection Palpation (GI): Soft to palpation Skin General skin exam: no rashes or lesions noted Neuro General: patient oriented x3 Extrem General: No edema Psych Appearance: grossly normal Results AMB Urinalysis, Automated UA Leukoctes 0 Brice/uL Last Edit by MICA Grier on 05/02/23 13:24 UA Nitrite Negative Last Edit by MICA Grier on 05/02/23 13:24 UA Urobilinogen 0.2 mg/dL Last Edit by MICA Grier on 05/02/23 13:2 4 UA Protein 0 mg/dL Last Edit by MICA Grier on 05/02/23 13:24 UA pH 7.0 Last Edit by MICA Grier on 05/02/23 13:24 UA Blood 0 Slick/uL Last Edit by MICA Grier on 05/02/23 13:24 UA Specific [place] 1.015 Last Edit by MICA Grier on 05/02/23 13: 24 UA Ketone Negative Last Edit by MICA Grier on 05/02/23 13:24 UA Bilirubin 0 mg/dL Last Edit by MICA Grier on 05/02/23 13:24 UA Glucose 0 mg/dL Last Edit by MICA Grier on 05/02/23 13:24 Results Reviewed Results Reviewed: Laboratory Last Values Urine pH (Auto) 7.0 05/02/23 13:22 Specific [place] (Auto) 1.015 05/02/23 13:22 Urine Protein (Auto) 0 mg/dL 05/02/23 13:22 Glucose (UA)(Auto) 0 mg/dL 05/02/23 13:22 Urine Ketones (Auto) Negative 05/02/23 13:22 Urine Blood (Auto) 0 Slick/uL 05/02/23 13:22 Urine Nitrite (Auto) Negative 05/02/23 13:22 Urine Bilirubin (Auto) 0 mg/dL 05/02/23 13:22 Urine Urobilinogen (Auto) 0.2 mg/dL 05/02/23 13:22 Leukocyte Esterase (Auto) 0 Brice/uL 05/02/23 13:22 Date of Service: 03/27/23 EXAMINATION: CT ABDOMEN AND PELVIS WITHOUT CONTRAST CLINICAL INFORMATION: Right-sided flank pain COMPARISON: CT abdomen pelvis 05/06/2017 FINDINGS: Visualized lung bases are well aerated. The liver is normal in size but demonstrates diffusely decreased attenuation. Gallstones are noted within an otherwise unremarkable appearing gallbladder. The spleen is mildly enlarged measuring 13.8 cm in AP dimension. There is a medial splenule noted. The pancreas and adrenal glands are unremarkable. Symmetrically sized kidneys. A few tiny nonobstructing calculi are noted within both kidneys. Also noted is a 3 mm calcification within the right ureterovesical junction. There is no associated hydronephrosis. Normal caliber loops of small and large bowel. Normal caliber abdominal aorta. No retroperitoneal lymphadenopathy. Interval development of a left ventral abdominal hernia which contains only fat. Fascial defect of this hernia measures approximately 2.3 x 2.2 cm in transverse by craniocaudal dimension. The herniated sac measures approximately 6.8 cm. The bladder demonstrates normal distention. Unremarkable CT appearance of the uterus. No gross free pelvic fluid. No inguinal lymphadenopathy. Shotty bilateral inguinal lymph nodes. No acute osseous abnormality. IMPRESSION: 1. 3 mm calcification within the right ureterovesical junction. There is no associated hydronephrosis. 2. Tiny nonobstructing renal calculi are noted bilaterally. 3. Cholelithiasis. 4. Diffusely decreased liver attenuation suggesting hepatic steatosis. Correlation with liver enzymes recommended. 5. Mild splenomegaly. 6. Interval development of a left ventral abdominal hernia which contains only fat. Fascial defect of this hernia measures approximately 2.3 x 2.2 cm in transverse by craniocaudal dimension. The herniated sac measures approximately 6.8 cm. Ordered: Urine Culture Procedure Result Verified Site Urine Culture Final 03/29/23 Organism 1 Escherichia coli Quant > 100,000 cfu/mL E coli M.I.C. RX --------- --- Ampicillin >=32 R Ceftriaxone <=0.25 S Gentamicin <=1 S Levofloxacin <=0.12 S Nitrofurantoin <=16 S Trimethoprim/Sulfamethoxazole <=20 S Assessment & Plan Assessment & Plan (1) Bilateral kidney stones: Code(s): N20.0 - Calculus of kidney (2) Ureteral stone: Code(s): N20.1 - Calculus of ureter (3) Pyelonephritis: Code(s): N12 - Tubulo-interstitial nephritis, not specified as acute or chronic Plan Advised to take 5 more days of Abx. Bactrim DS prescribed. Discussed metabolic work up. 24-hour urine collection test. Follow-up in 12 weeks to discuss the results. Orders: Orders AMB Urinalysis Automated 05/02/23 Z13.9 - Encounter for screening, unspecified Medications: New sulfamethoxazole-trimethoprim 800-160 mg (Bactrim DS) 1 tab PO BID 10 tabs 0RF Patient Instructions: The patient had an opportunity to ask questions regarding treatment plan. All questions were answered. Imaging, Laboratory studies and physical exam results were discussed and reviewed in detail. No major barriers to understanding were identified. The patient expressed understanding and agreement with the above treatment plan. The patient is aware they should contact our office by phone for worsening of their current condition or the appearance of new symptoms. Compliance is encouraged with any medications and followup testing that is ordered. It is a privilege to be allowed the opportunity to participate in the urologic care of your patient. If you have any questions or concerns regarding treatment for the above conditions please do not hesitate to contact me. The office telephone contact is [phone]. This note is constructed in part using voice recognition software. While every effort has been made to ensure accuracy dust box tender errors may have been included. Yours sincerely, Yeimi Quijano MD Coding Level of Care Code New Pt Level 4 (00033) Diagnoses Bilateral kidney stones N20.0 Ureteral stone N20.1 Pyelonephritis N12
== END 2023-05-02 10:51 | disposition home or self-care (01) ==
PROVIDERS: PCP Internal Medicine; Visit Provider Urology
DX: N20.0 Calculus of kidney (principal); N20.1 Calculus of ureter; N12 Tubulo-interstitial nephritis, not specified as acute or chronic
CPT/HCPCS: 99204

== ENCOUNTER → 2023-05-02 09:43 | Outpatient (BNVA) | payer OTHER, SELFPAY | PROVIDERS: PCP Internal Medicine; Visit Provider Urology | DX: N20.2 Calculus of kidney with calculus of ureter (principal) | CPT/HCPCS: 81003 ==

== ENCOUNTER 2023-11-14 19:00 | Emergency (ER) | payer OTHER, SELFPAY ==
--- NOTE | ~2023-11-14 | XR_ITS ---
EXAMINATION: XR CHEST CLINICAL INFORMATION: Chest pain COMPARISON: Chest x-ray June 26, 2022 TECHNIQUE: Frontal view of the chest was obtained. 7:57 PM FINDINGS: No significant abnormality is noted involving the heart, lungs, mediastinum, bony thorax or soft tissues. XR/XR chest 1V IMPRESSION: Unremarkable examination.
--- NOTE | 2023-11-14 19:01 | ECG_ITS ---
Test Reason : CP Blood Pressure : / mmHG Vent. Rate : 120 BPM Atrial Rate : 120 BPM P-R Int : 154 ms QRS Dur : 082 ms QT Int : 328 ms P-R-T Axes : 015 041 -06 degrees QTc Int : 463 ms Sinus tachycardia Possible Left atrial enlargement Inferior infarct , age undetermined Cannot rule out Anterior infarct , age undetermined Abnormal ECG When compared with ECG of 26-JUN-2022 18:16, Inferior infarct is now Present Referred By: Generic ED Physician Electronically Signed By:Chris Cooney
[2023-11-14 19:19] VITALS: BP 153/91; PULSE 110; RESP 20; TEMP 36.6; O2SAT 98; BMI 41.6
--- NOTE | 2023-11-14 19:21 | ED.GENADULT ---
HPI - General Adult General Chief complaint: Chest Pain Stated complaint: chest pain Time Seen by Provider: 11/14/23 20:15 Source: patient and old records reviewed Mode of arrival: ambulatory Limitations: no limitations History of Present Illness HPI narrative: 43 yo female with PMH of kidney stones and anxiety here with c/o having intermittent stabbing chest pain since 8am today with some nausea, anxiety, dyspnea she notes she tried meditation music, yoga but no relief. She is under sig stress. Not related to exertion. She has not traveled, not on OCPs. MD complaint: chest pain Onset (ago): hour(s) (8am today) Location: chest Radiation: non-radiation Severity: moderate Quality: stabbing Pain Consistency: intermittent Relieving factors: none Exacerbating factors: other (stress) Associated symptoms: chest pain and shortness of breath Treatments prior to arrival: none Related Data Previous Rx's ?Medication ?Instructions ?Recorded acetaminophen 500 mg tablet 500 mg PO Q6H PRN pain or fever 01/04/21 (Tylenol Extra Strength) #20 tabs sulfamethoxazole 800 1 tab PO BID #10 tabs 05/02/23 mg-trimethoprim 160 mg tablet (Bactrim DS) hydroxyzine HCl 25 mg tablet 25 mg PO TID PRN anxiety #20 tabs 11/14/23 Allergies Allergy/AdvReac Type Severity Reaction Status Date / Time No Known Allergies Allergy Verified 11/14/23 19:21 [No Known Allergies*] Review of Systems Review of Systems: Constitutional : No Weight loss, No Fever, No Chills ENT/Mouth : No sore throat, No Rhinorrhea Eyes: No Eye Pain, No Swelling Cardiovascular : pos Chest Pain, pos SOB, no Dyspnea on Exertion, No Orthopnea, No Edema, No Palpitations Respiratory : No Cough, No Sputum Gastrointestinal : pos Nausea, No Vomiting, No Diarrhea, No abdominal Pain, No Hematochezia, No Melena Genitourinary : No Dysuria, No Urinary Frequency Musculoskeletal : No joint pain, No Myalgias, No Joint Swelling Skin : No Skin Lesions, No rash Neuro : No Weakness, No Numbness, No Dizziness, No Headache Psych : pos Anxiety/Panic, No Depression Heme/Lymph: No Bruising, No Lymphadenopathy Endocrine : No Polyuria, No Polydipsia All other systems reviewed and are negative [facility] Past Medical History Attestation statement: The following information was validated with the patient. Source: old records reviewed Medical History Pyelonephritis Kidney stone Anxiety PTSD (post-traumatic stress disorder) Surgical History Hx of one miscarriage Hx of nephrolithotomy with removal of calculi Family History Family History Father No problems noted. Mother No problems noted. Social History Social History Alcohol intake: current Alcohol intake frequency: a few times a month Patient Tobacco Use Status: Never used Tobacco Smoked in Last 30 Days: No Advance Directives: No Advance Directives Information Provided: No Patient : No Physical Exam ED Vital Signs: Vital Signs - 24 hr 11/14/23 19:19 Temperature 97.9 F Pulse Rate 110 H Respiratory Rate 20 Blood Pressure 153/91 H Pulse Oximetry 98 Oxygen Delivery Method Room Air BMI result Body Mass Index 41.6 Appearance: Alert. Oriented X3. No acute distress. Eyes: Pupils equal, round and reactive to light. ENT: Pharynx normal. Neck: Normal inspection. Neck supple. CVS: Normal heart rate and rhythm. Pulses normal. Respiratory: No respiratory distress. Breath sounds normal. Abdomen: Soft and nontender. Skin: Skin warm and dry. Normal skin color. Normal skin turgor. Extremities: No lower extremity edema. No calf ttp Neuro: Oriented X 3. No motor deficit. No sensory deficit. Course Course Course Narrative: RME: 42-year-old female history of anxiety presents to ED for chest pain for the whole day. Patient states no relief with meditation and self assurance exercises. Patient came to the ED to make sure there is no real cardiac issue. Labs EKG chest x-ray ordered. Medications Administered Discontinued Medications Generic Name Dose Route Start Last Admin Trade Name Freq PRN Reason Stop Dose Admin Hydroxyzine HCl 25 mg 11/14/23 20:27 11/14/23 20:33 Hydroxyzine Hcl 25 Mg Tablet PO 11/14/23 20:28 25 mg ONCE ONE Administration Medical Decision Making Medical Decision Making MDM Narrative: 43 yo female with PMH of anxiety here with c/o atypical chest pain has hx of CAD in family in grandparents at this time has chest pain since 8am will need basic labs, troponin x 1, ddimer, CXR, EKG - start on atarax. Has no hx of VTE no risk factors but is tachycardic, pulses are symmetric doubt dissection Differential Diagnosis Differential Diagnoses: The differential diagnosis associated with the presentation includes atypical chest pain, VTE low prob, anxiety Admission/Observation Consideration of admission/observation: Escalation of care including admission/observation considered EKG nonischemic, trop flat, ddimer negative stable for DC Lab Data [facility] Lab Attestation statement: I reviewed the patient's lab results. 11/14/23 19:36 11/14/23 19:36 Labs: Lab Results 11/14/23 Range/Units 19:36 WBC 10.6 (4.8-10.8) X10*3/uL RBC 4.45 (4.20-5.50) X10*6/uL Hgb 11.3 L (12.0-16.0) g/dl Hct 35.8 L (37.0-47.0) % MCV 80.4 (80.0-98.0) fL MCH 25.4 L (27.0-33.0) pg MCHC 31.6 (31.0-35.0) g/dl RDW 15.8 (11.0-16.0) % Plt Count 339 (160-400) X10*3/uL MPV 10.5 (9.4-12.3) fL Immature Gran % (Auto) 0.4 (0.0-0.4) % Neut % (Auto) 71.6 (45-73) % Lymph % (Auto) 21.3 (20-40) % Spink % (Auto) 5.0 (2-11) % Eos % (Auto) 1.3 (0-4) % Baso % (Auto) 0.4 (0-2) % Lymph # (Auto) 2.3 (1.2-4.9) X10*3/uL Spink # (Auto) 0.5 (0.1-1.2) X10*3/uL Eos # (Auto) 0.1 (0.0-0.4) X10*3/uL Baso # (Auto) 0.0 (0.0-0.2) X10*3/uL Abs Immat Gran (auto) 0.04 H (0.00-0.03) X10*3/uL Absolute Neuts (auto) 7.6 (2.0-8.3) x10*3/uL Absolute Nucleated RBC 0.000 (0.0-0.012) X10*3/uL Nucleated RBC % (auto) 0.0 (0.0-0.2) /100WBC PT 12.2 (11.1-13.3) SEC INR 1.0 (0.9-1.1) APTT 67.2 H* (26.0-36.8) SEC D-Dimer High Sensitivty < 150 NG/ML Sodium 139 (135-145) mmol/L Potassium 3.5 (3.3-5.1) mmol/L Chloride 108 (96-108) mmol/L Carbon Dioxide 21 L (22-29) mmol/L Anion Gap 14 (12-20) BUN 13 (9-16) mg/dL Creatinine 0.88 (0.5-1.4) mg/dL Estim Creat Clear Calc 103.4 Estimated GFR > 60 Random Glucose 165 H (60-115) mg/dL Calcium 8.9 (8.4-10.2) mg/dL Total Bilirubin 0.4 (0.0-1.0) mg/dL AST 13 (5-31) U/L ALT 12 (0-31) U/L Alkaline Phosphatase 73 (39-117) U/L Troponin I High Sens < 2.7 (<3.5-17.0) ng/L B-Natriuretic Peptide 14 (<100) pg/mL Total Protein 7.0 (6.5-8.0) g/dL Albumin 3.8 (3.5-5.0) g/dL Independent Interpretation I performed an independent interpretation of an: EKG and Plain X-Ray (no pneumothorax) Interpretation: Rate: 120 Rhythm: sinus tach Hernshaw: normal Normal P waves. Normal ZARA. Normal QRS complex. ST T wave : inverted t waves III, no MCKINLEY qTC: 463 prior studies: no sig ischemia The study has been interpreted contemporaneously by me. . Radiology Impression Discussion of test interpretation with radiology: I have reviewed the radiologist's reading. External Record Review External record reviewed: Office record Prescription Management I considered prescription management with: Other Discharge Plan Discharge Clinical Impression: Atypical chest pain, Anxiety Patient Disposition: Home, Self-Care Instructions: Chest Pain (ED), Anxiety (ED) Additional Instructions: your EKG and tests for heart were normal. test for blood clot was negative, please return for any worsening symptoms. you need to get an outpatient stress test give your family risk factors please talk to your primary care doctor. you had one abnormal coagulation study please follow up with our crown pouncer Prescriptions: New hydroxyzine HCl 25 mg tablet 25 mg PO TID PRN (Reason: anxiety) Qty: 20 0RF No Action acetaminophen [Tylenol Extra Strength] 500 mg tablet 500 mg PO Q6H PRN (Reason: pain or fever) Qty: 20 0RF sulfamethoxazole-trimethoprim [Bactrim DS] 800-160 mg tablet 1 tab PO BID Qty: 10 0RF Referrals: Lucia Das MD [Physician] - (crown pouncer ) Stand Alone Forms: Work/School Release Interventions: ED Discharge Assessment Last Done: 11/14/23 21:04 Discharge Date/Time: 11/14/23 21:05 Print Language: Georgian
[2023-11-14 19:40] LABS: MANUAL DIFF FLAG NO
[2023-11-14 19:42] LABS: Basophils Percent Auto 0.4 % (0-2); Eosinophils Absolute Auto 0.1 X10*3/uL (0.0-0.4); Eosinophils Percent Auto 1.3 % (0-4); Hematocrit 35.8 % (37.0-47.0); Hemoglobin 11.3 g/dl (12.0-16.0); Imm Gran Abs Auto 0.04 X10*3/uL (0.00-0.03); Imm Gran Pct Auto 0.4 % (0.0-0.4); Lymphocytes Absolute Auto 2.3 X10*3/uL (1.2-4.9); Lymphocytes Percent Auto 21.3 % (20-40); Mean Corpuscular HGB Conc 31.6 g/dl (31.0-35.0); Mean Corpuscular Hemoglobin 25.4 pg (27.0-33.0); Mean Corpuscular Volume 80.4 fL (80.0-98.0); Mean Platelet Volume 10.5 fL (9.4-12.3); Monocytes Absolute Auto 0.5 X10*3/uL (0.1-1.2); Neutrophils Absolute Auto 7.6 x10*3/uL (2.0-8.3); Neutrophils Percent Auto 71.6 % (45-73); Platelet Count 339 X10*3/uL (160-400); Red Blood Count 4.45 X10*6/uL (4.20-5.50); Red Cell Distribution Width 15.8 % (11.0-16.0); White Blood Count 10.6 X10*3/uL (4.8-10.8)
[2023-11-14 19:57] LABS: Prothrombin Time 12.2 SEC (11.1-13.3)
[2023-11-14 20:03] LABS: Alanine Aminotransferase 12 U/L (0-31); Albumin Level 3.8 g/dL (3.5-5.0); Alkaline Phosphatase 73 U/L (39-117); Anion Gap 14 (12-20); Aspartate Amino Transferase 13 U/L (5-31); Bilirubin Total 0.4 mg/dL (0.0-1.0); Blood Urea Nitrogen 13 mg/dL (9-16); Calcium 8.9 mg/dL (8.4-10.2); Carbon Dioxide 21 mmol/L (22-29); Chloride 108 mmol/L (96-108); Creatinine Clr Calc Pharmacy 103.4; Estimated Glomerular Filt Rate > 60; Glucose Random 165 mg/dL (60-115); Potassium 3.5 mmol/L (3.3-5.1); Sodium 139 mmol/L (135-145)
[2023-11-14 20:05] LABS: Partial Thromboplastin Time 67.2 SEC (26.0-36.8)
[2023-11-14 20:09] LABS: B Type Natriuretic Peptide 14 pg/mL (<100)
[2023-11-14 20:17] VITALS: BP 143/86; PULSE 95; RESP 17; TEMP 37.1; O2SAT 98
[2023-11-14 20:18] LABS: Troponin-I High Sensitivity < 2.7 ng/L (<3.5-17.0)
[2023-11-14 20:32] LABS: D Dimer High Sensitivity < 150 NG/ML
[2023-11-14] MEDS: hydrOXYzine HCL 25 MG TABLET PO (20:33)
[2023-11-14 21:04] VITALS: BP 123/78; PULSE 95; RESP 18; TEMP 37.2; O2SAT 98
== END 2023-11-14 21:05 | disposition home or self-care (01) ==
PROVIDERS: Physician Assistant; Emergency Provider Emergency Medicine; PCP Internal Medicine
DX: R07.89 Other chest pain (principal); F41.9 Anxiety disorder, unspecified; R11.0 Nausea; R06.02 Shortness of breath; Z79.899 Other long term (current) drug therapy
CPT/HCPCS: 36415; 71045; 80053; 83880; 84484; 85025; 85379; 85610; 85730; 93005; 99283; 99284

== ENCOUNTER → 2023-11-14 19:01 | Outpatient (BNV) | payer OTHER, SELFPAY | PROVIDERS: Emergency Provider Emergency Medicine; PCP Internal Medicine; Visit Provider Internal Medicine Cardiovascular Disease | DX: R94.31 Abnormal electrocardiogram [ECG] [EKG] (principal) | CPT/HCPCS: 93010 ==

== ENCOUNTER → 2023-12-18 07:50 | Outpatient (BNV) | payer OTHER, SELFPAY | PROVIDERS: PCP Internal Medicine; Visit Provider Internal Medicine | DX: R79.1 Abnormal coagulation profile (principal) | CPT/HCPCS: 99204; 99214 ==

== ENCOUNTER 2024-03-28 19:58 | Emergency (ER) | payer OTHER, SELFPAY ==
--- NOTE | ~2024-03-28 | XR_ITS ---
EXAMINATION: XR CHEST CLINICAL INFORMATION: Chest pain, cough COMPARISON: None available. TECHNIQUE: 2 views of the chest were obtained. FINDINGS: No significant abnormality is noted involving the heart, lungs, mediastinum, bony thorax or soft tissues. XR/XR chest 2V IMPRESSION: Unremarkable examination. Electronically signed by: Kasi Rosales DO 03/28/2024 08:42 PM EDT
[2024-03-28 20:06] VITALS: BP 141/95; PULSE 96; RESP 18; TEMP 36.7; O2SAT 98; BMI 40.8
--- NOTE | 2024-03-28 20:06 | ED.GENADULT ---
HPI - General Adult General Chief complaint: Upper Respiratory Symptoms Stated complaint: chest pain-especially when she coughs Time Seen by Provider: 03/28/24 21:06 Source: patient Mode of arrival: ambulatory Limitations: no limitations History of Present Illness ED Provider: Dr. Paz HPI narrative: Patient has been couging aggressively for 2 weeks, not getting better, wanted to make sure she did not have pneumonia. Severe chest pain with coughing. Her children had something similar 2 weeks ago Onset (ago): week(s) Related Data Previous Rx's ?Medication ?Instructions ?Recorded acetaminophen 500 mg tablet 500 mg PO Q6H PRN pain or fever 01/04/21 (Tylenol Extra Strength) #20 tabs hydroxyzine HCl 25 mg tablet 25 mg PO TID PRN anxiety #20 tabs 11/14/23 aspirin 81 mg tablet,delayed 81 mg PO DAILY #90 tabs 03/25/24 release [id number]-[id number]-cvojuasybpp 5 10 ml PO Q4H PRN cough #473 mL 03/28/24 mg-10 mg-100 mg/5 mL oral liquid Allergies Allergy/AdvReac Type Severity Reaction Status Date / Time No Known Allergies Allergy Verified 03/28/24 20:09 [No Known Allergies*] Review of Systems Review of Systems: Yes all other systems are reviewed and are negative Neurologic: Denies Sensory deficit (Neuro) PMFSH Past Medical History Medical History Pyelonephritis Kidney stone Anxiety PTSD (post-traumatic stress disorder) Surgical History Hx of one miscarriage Hx of nephrolithotomy with removal of calculi Family History Family History Father No problems noted. Mother No problems noted. Social History Social History Household Members: Family Alcohol intake: current Alcohol intake frequency: a few times a month Patient Tobacco Use Status: Never used Tobacco Advance Directives: No Advance Directives Information Provided: No Do you have a plan to hurt others: No Plan service: No Current occupational status: employed Physical Exam ED Vital Signs: Vital Signs - 24 hr 03/28/24 20:06 Temperature 98.0 F Pulse Rate 96 Respiratory Rate 18 Blood Pressure 141/95 H Pulse Oximetry 98 Oxygen Delivery Method Room Air BMI result Body Mass Index 40.8 Const Other: Coughing spasms General: healthy appearing Nutritional Appearance: average body habitus Orientation/consciousness: oriented to person and patient oriented x3 Limitations: no limitations HENMI Head: Yes normal to inspection Ears: external ears normal General nose exam: Normal external nose present Mouth: Normal oral and palatal mucosa present and oropharynx normal Throat: Yes posterior oropharynx normal Eyes General: appearance normal, both eyes and all related structures Neck Neck: Yes normal visual inspection Chest Chest palpation & inspection: normal inspection of the chest Resp Auscultation: clear to auscultation bilaterally Cardio Jugular venous distension: no JVD Rate: regular rate Rhythm: regular rhythm Heart sounds: S1 normal heart sound present and S2 normal heart sound present GI Inspection: Yes normal to inspection Palpation (GI): Soft to palpation, nontender and No hepatosplenomegaly present Auscultation: normal bowel sounds General: Yes no CVA tenderness Back/Spine/Pelvis Back: no CVA tenderness Skin General skin exam: no rashes or lesions noted Neuro General: oriented to person and patient oriented x3 Cranial nerves: Yes CN's II-XII intact bilaterally Motor exam (neuro): 5/5 motor strength present throughout Sensory Exam: No Sensory deficit (Neuro) Extrem General: Yes normal to inspection Psych Appearance: grossly normal Course Course Course Narrative: This is a rapid medical exam performed by Nirali Rod NP: Additional HPI, ROS, PE not included below will be deferred to primary provider. Patient is a 43-year-old female presenting to the ED with complaint of chest pain with breathing/coughing. Has had cough and congestion for the past 2 weeks. Children were sick with similar sxs, have improved, she has not. Symptoms not improving with albuterol. Plan: viral serology, CXR EKG Reevaluation(s) Reevaluation #1: EKG is normal sinus, CXR is clear, vitals normal, normal oxygen, clear lungs no wheezing Time: 21:17 Medical Decision Making Differential Diagnosis Differential Diagnoses: The differential diagnosis associated with the presentation includes (flu, covid, rsv, pneumonia) Admission/Observation Consideration of admission/observation: Escalation of care including admission/observation considered (upon arrival admission was considered) Lab Data Labs: Lab Results 03/28/24 Range/Units 20:28 Influenza Type A (PCR) NEGATIVE (Negative) Influenza Type B (PCR) NEGATIVE (Negative) RSV RNA Qual (PCR) NEGATIVE (Negative) SARS-CoV-2 RNA (RT-PCR) NEGATIVE (Negative) Independent Interpretation I performed an independent interpretation of an: EKG (sinus 80, no st or twave changes) and Plain X-Ray (CXR: no infiltrate) Prescription Management I considered prescription management with: Antibiotic (No infiltrate on xray) Discharge Plan Discharge Clinical Impression: Upper respiratory infection, Viral infection Patient Disposition: Home, Self-Care Instructions: Upper Respiratory Infection (ED), Viral Syndrome (ED) Prescriptions: New jazmmzrrrbzwk-ND-gmuqeshkqso 5-10-100 mg/5 mL liquid 10 ml PO Q4H PRN (Reason: cough) Qty: 473 0RF No Action acetaminophen [Tylenol Extra Strength] 500 mg tablet 500 mg PO Q6H PRN (Reason: pain or fever) Qty: 20 0RF hydroxyzine HCl 25 mg tablet 25 mg PO TID PRN (Reason: anxiety) Qty: 20 0RF aspirin 81 mg Tablet,Delayed Release (Dr/Ec) 81 mg PO DAILY Qty: 90 4RF Referrals: Jennie Dang MD [Primary Care Provider] - 5 days Print Language: [place] Citizen
--- NOTE | 2024-03-28 20:07 | ECG_ITS ---
Test Reason : CHEST PAIN Blood Pressure : / mmHG Vent. Rate : 078 BPM Atrial Rate : 078 BPM P-R Int : 152 ms QRS Dur : 090 ms QT Int : 384 ms P-R-T Axes : 014 033 010 degrees QTc Int : 437 ms Normal sinus rhythm Normal ECG When compared with ECG of 14-NOV-2023 19:04, Vent. rate has decreased BY 42 BPM Referred By: Mirta Rod Electronically Signed By:BRIAN MUÑIZ
--- NOTE | 2024-03-28 20:19 | MHC.EDTECH ---
Delay in EKG due to this tech being in the middle of blood draw with another Pt and then this Pt being called to xray.
[2024-03-28 21:10] LABS: Influenza A PCR NEGATIVE (Negative); Influenza B PCR NEGATIVE (Negative); Resp Syncy Virus RNA Qual PCR NEGATIVE (Negative); SARS COV2 PCR INHOUSE NEGATIVE (Negative)
[2024-03-28] MEDS: guaiFENesin 200 MG/10 ML 10 ML LIQUID 20 ML PO (21:24)
[2024-03-28 21:42] VITALS: BP 141/95; PULSE 96; RESP 18; TEMP 36.7; O2SAT 98
== END 2024-03-28 21:42 | disposition home or self-care (01) ==
PROVIDERS: Registered Nurse Emergency; Emergency Provider Emergency Medicine; PCP Internal Medicine
DX: J06.9 Acute upper respiratory infection, unspecified (principal); R05.9 Cough, unspecified; R07.9 Chest pain, unspecified
CPT/HCPCS: 0241U; 71046; 93005; 99283

== ENCOUNTER 2024-09-12 16:30 | Emergency (ER) | payer OTHER, SELFPAY ==
--- NOTE | ~2024-09-12 | CT_ITS ---
CLINICAL HISTORY: chest pressure r o PE CT angiography chest with contrast. With MIP MPR Postprocessing. Comparison: Chest x-ray from 03/28/2024 Findings: No central pulmonary embolism. No aortic dissection. Mild artifacts noted. Mild cardiomegaly present in the multichamber enlargement of the heart. Trace pericardial effusion with mild mediastinal fluid. Nonenlarged mediastinal lymphadenopathy. Mild bibasilar atelectasis. No pneumothorax or pleural effusion. Mild old rib deformities accentuated by motion artifacts. Degenerative changes include imaged spine. 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 IMPRESSION: 1. No central pulmonary embolism. 2. Bibasilar atelectasis This document has been electronically signed by: Isaias Sibley MD on 09/12/2024 18:52:50
--- NOTE | 2024-09-12 16:33 | ECG_ITS ---
Test Reason : CHEST PRESSURE Blood Pressure : */* mmHG Vent. Rate : 103 BPM Atrial Rate : 103 BPM P-R Int : 152 ms QRS Dur : 88 ms QT Int : 350 ms P-R-T Axes : 31 33 -11 degrees QTcB Int : 458 ms Sinus tachycardia Cannot rule out Inferior infarct , age undetermined Cannot rule out Anterior infarct , age undetermined Abnormal ECG When compared with ECG of 28-Mar-2024 20:19, No significant change was found Referred By: Yana Moore Electronically Signed By: MAGGI SUTTON MD
[2024-09-12 16:40] VITALS: BP 153/91; PULSE 109; RESP 20; TEMP 37.1; O2SAT 100; BMI 36.4
--- NOTE | 2024-09-12 16:40 | ED.CHESTPAIN ---
HPI - Chest Pain General Chief Complaint: Chest Pain Stated Complaint: chest pressure/stomach feels like its pulsating? Time Seen by Provider: 09/12/24 17:22 Source: patient Mode of arrival: ambulatory Limitations: no limitations History of Present Illness ED Provider: Ysabel Anderson NP HPI narrative: patient is a 44 old female who presents emergency department for evaluation. Reports earlier this morning while getting ready for the day she began experiencing a pulsating type sensation to her epigastric region she admits that this did begin to make her feel anxious. Now she is feeling mid chest tightness and shortness of breath that is particularly exacerbated with ambulation. She denies any recent prolonged immobilization or surgery. Denies recent lower extremity redness pain or swelling. She admits to taking a low-dose baby aspirin due to history of antiphospholipid syndrome and lupus, she is on progesterone based oral contraceptive. She denies history of VTE/malignancy. Related Data Previous Rx's ?Medication ?Instructions ?Recorded acetaminophen 500 mg tablet 500 mg PO Q6H PRN pain or fever 01/04/21 (Tylenol Extra Strength) #20 tabs hydroxyzine HCl 25 mg tablet 25 mg PO TID PRN anxiety #20 tabs 11/14/23 aspirin 81 mg tablet,delayed 81 mg PO DAILY #90 tabs 03/25/24 release Allergies Allergy/AdvReac Type Severity Reaction Status Date / Time No Known Allergies Allergy Verified 09/12/24 16:43 [No Known Allergies*] Review of Systems Review of Systems: Yes all other systems are reviewed and are negative PMFSH Past Medical History Attestation statement: The following information was validated with the patient. Source: old records reviewed Medical History Pyelonephritis Kidney stone Anxiety PTSD (post-traumatic stress disorder) Surgical History Hx of one miscarriage Hx of nephrolithotomy with removal of calculi Family History Family History Father No problems noted. Mother No problems noted. Social History Social History Household Members: Family Alcohol intake: current Alcohol intake frequency: a few times a month Patient Tobacco Use Status: Never used Tobacco Advance Directives: No Advance Directives Information Provided: No service: No Current occupational status: employed Physical Exam Vital Signs: Vital Signs: Last Vital Signs Temp 98.3 F 09/12/24 19:24 Pulse 78 09/12/24 19:24 Resp 18 09/12/24 19:24 BP 133/67 09/12/24 19:24 Pulse Ox 100 09/12/24 19:24 O2 Del Method Room Air 09/12/24 19:24 BMI result Body Mass Index 36.4 Appearance: Alert.?Oriented to person, place and time. No acute distress.?Normal affect. Eyes: Pupils equal, round and reactive to light.? ENT: Pharynx normal.?? Neck: Normal inspection.? Neck supple.?? CVS: Heart sounds normal. Tachycardia? Pulses normal.?? Respiratory: No respiratory distress.? Lung sounds clear to auscultation bilaterally?? Abdomen: Soft and non-tender. Normoactive bowel sounds. no pulsatile mass? Skin: Skin warm and dry.? Normal skin color.? Extremities: No lower extremity edema.? No calf ttp? Neuro: Moves all extremities spontaneously. Sensation intact bilaterally. Ambulates with normal steady gait. Course Course Course Narrative: This is a Rapid Medical Examination (RME) performed by Jhoan Moore PA-C in triage. Full HPI, ROS, assessment and treatment plan per primary provider in the Main ED. 44 yo female hx of lupus, antiphospholipid syndrome (on baby aspirin- no AC) here w/ pulsating sensation to epigastric region which began while doing her making this morning. began to get anxious, now having increased chest trightness and SOB w/ ambulating. no recent travel or long car rides. no LE pain/swelling. on OCP. 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 Plan to obtain delta troponin to exclude ACS. Patient will be signed out to Jhoan Moore pending repeat troponin and disposition, she remains without pain anticipate that she may be discharged home Time: 19:02 Reevaluation #2: I received patient in sign-out pending repeat troponin and disposition. I have reviewed all workup results. CBC without leukocytosis or left shift. H&H around baseline. Chemistry showing hypokalemia to 3.1. Magnesium WNL. No other acute electrolyte abnormality requiring intervention. No RUDDY. Random glucose 135. Liver function at baseline. Not . CT angio chest does not demonstrate pulmonary emboli. No pneumonia. Initial troponin undetectable. delta trop 3.9. increased however still wnl. Heart score 1. On re-evaluation, patient continues to endorse mild discomfort to central chest. she states it is really only present w/ specific movements or when she palpates the area. Given pain is reproducible, more likely musculoskeletal in nature. Heart score 1. I did discuss with my attending Dr. Mirza - plan to treat pain with Tylenol. Given history of antiphospholipid syndrome, not on anticoagulation, will avoid NSAIDs. I discussed with patient who is agreeable with plan. She has a PCP however does not follow with a rheumatology or cardiology. Referrals provided. Patient has remained stable throughout ED visit today. Discussed worrisome signs and symptoms and when to return to the ED. All questions answered at this time. Patient is agreeable with disposition and stable for discharge. Time: 20:21 Medications Administered Discontinued Medications Generic Name Dose Route Start Last Admin Trade Name Freq PRN Reason Stop Dose Admin Sodium Chloride 1,000 mls @ 999 mls/hr 09/12/24 17:30 09/12/24 19:08 Ns IV 09/12/24 18:30 Infused .Q1H1M JEFF Infusion Iohexol 100 ml 09/12/24 18:02 09/12/24 18:03 Iohexol 350 Mg/Ml 100 Ml Infus..Btl IV 09/12/24 18:03 65 ml ONCE ONE Administration Potassium Chloride 40 meq 09/12/24 19:03 09/12/24 19:37 Potassium Chloride Packet 20 Meq Packet PO 09/12/24 19:04 40 meq ONCE ONE Administration Medical Decision Making Medical Decision Making MDM Narrative: patient is a 44-year-old female with past medical history of nephrolithiasis, anxiety, PTSD, lupus , antiphospholipid syndrome on aspirin 81 mg daily, and progesterone only OCP who presents emergency department for evaluation of chest tightness shortness of breath worsening on ambulation as per HPI. EKG obtained on arrival revealing a sinus tachycardia with a ventricular rate of 103, QTC 458, no ST elevation, Q-wave in lead III, V1, V3 and T-wave inversion in III , CT angio of the chest was ordered from triage, she is noted to be mildly tachycardic 109 without tachypnea or hypoxia. She is without signs of systemic toxicity, afebrile, no recent URI symptoms. She states that since the onset of the pain it was initially with a varying intensity over about 2 hours, she has reports the pain to be minimal at this time 07/17. CBC is without leukocytosis, has a mild microcytic anemia not meeting transfusion criteria, no thrombocytopenia. Mildly hypokalemic at 3.1, will provide with 40 mEq use oral replacement, no RUDDY. High sensitive troponin below detectable limits. LFTs overall unremarkable and normal lipase. Differential Diagnosis Differential Diagnoses: The differential diagnosis associated with the presentation includes ( pulmonary embolism, ACS, aneurysm, gastritis, acid reflux, atypical chest pain, symmetrical pulses lower suspicion for dissection) Lab Data MDM Lab Attestation statement: I reviewed the patient's lab results. ( See narrative above) 09/12/24 16:53 09/12/24 16:53 Labs: Lab Results 09/12/24 09/12/24 Range/Units 16:53 19:20 WBC 10.0 (4.8-10.8) X10*3/uL RBC 4.60 (4.20-5.50) X10*6/uL Hgb 11.7 L (12.0-16.0) g/dl Hct 36.5 L (37.0-47.0) % MCV 79.3 L (80.0-98.0) fL MCH 25.4 L (27.0-33.0) pg MCHC 32.1 (31.0-35.0) g/dl RDW 15.1 (11.0-16.0) % Plt Count 324 (160-400) X10*3/uL MPV 11.0 (9.4-12.3) fL Immature Gran % (Auto) 0.4 (0.0-0.4) % Neut % (Auto) 71.6 (45-73) % Lymph % (Auto) 20.6 (20-40) % [place] % (Auto) 6.4 (2-11) % Eos % (Auto) 0.6 (0-4) % Baso % (Auto) 0.4 (0-2) % Lymph # (Auto) 2.1 (1.2-4.9) X10*3/uL [place] # (Auto) 0.6 (0.1-1.2) X10*3/uL Eos # (Auto) 0.1 (0.0-0.4) X10*3/uL Baso # (Auto) 0.0 (0.0-0.2) X10*3/uL Abs Immat Gran (auto) 0.04 H (0.00-0.03) X10*3/uL Absolute Neuts (auto) 7.1 (2.0-8.3) x10*3/uL Absolute Nucleated RBC 0.000 (0.0-0.012) X10*3/uL Nucleated RBC % (auto) 0.0 (0.0-0.2) /100WBC Sodium 140 (135-145) mmol/L Potassium 3.1 L (3.3-5.1) mmol/L Chloride 108 (96-108) mmol/L Carbon Dioxide 24 (22-29) mmol/L Anion Gap 11 L (12-20) BUN 13 (9-16) mg/dL Creatinine 0.81 (0.5-1.4) mg/dL Estim Creat Clear Calc 114.4 Estimated GFR > 60 Random Glucose 135 H (60-115) mg/dL Calcium 9.5 D (8.4-10.2) mg/dL Magnesium 1.9 (1.6-2.6) mg/dL Total Bilirubin 0.4 (0.0-1.0) mg/dL AST 18 (5-31) U/L ALT 10 (0-31) U/L Alkaline Phosphatase 66 (39-117) U/L Troponin I High Sens < 2.7 3.9 (<3.5-17.0) ng/L Total Protein 7.6 (6.5-8.0) g/dL Albumin 4.1 (3.5-5.0) g/dL Lipase 20 (8-78) U/L Beta HCG, Quant < 2 mIU/mL Independent Interpretation I performed an independent interpretation of an: EKG ( see narrative above) Radiology Impression Discussion of test interpretation with radiology: I have reviewed the radiologist's reading. Radiologist Impression: CT angiography chest with contrast. With MIP MPR Postprocessing. Comparison: Chest x-ray from 03/28/2024 Findings: No central pulmonary embolism. No aortic dissection. Mild artifacts noted. Mild cardiomegaly present in the multichamber enlargement of the heart. Trace pericardial effusion with mild mediastinal fluid. Nonenlarged mediastinal lymphadenopathy. Mild bibasilar atelectasis. No pneumothorax or pleural effusion. Mild old rib deformities accentuated by motion artifacts. Degenerative changes include imaged spine. 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 IMPRESSION: 1. No central pulmonary embolism. 2. Bibasilar atelectasis External Record Review External record reviewed: Outpatient record Chronic Conditions Patient?s care impacted by: Other ( see narrative above) Discharge Plan Discharge Clinical Impression: Chest pain, Hypokalemia Patient Disposition: Home, Self-Care Instructions: Chest Pain (ED), Potassium Content of Foods List (ED), Hypokalemia (ED) Additional Instructions: You were evaluated in the Emergency Department today for chest pain. Your evaluation has shown no signs of medical conditions requiring emergent intervention at this time, however I recommend that you follow up with your primary care provider or your appellate court clerk as soon as possible for further testing as an outpatient. Your blood work showed low levels of potassium. You were provided repletion in ED. Follow up with PCP for repeat blood work in 1-2 weeks to ensure your potassium stays normal. Return to the Emergency Department if you experience worsening or uncontrolled chest pain, shortness of breath, light headedness, feeling faint, nausea, vomiting, or any other concerning symptoms. Prescriptions: No Action acetaminophen [Tylenol Extra Strength] 500 mg tablet 500 mg PO Q6H PRN (Reason: pain or fever) Qty: 20 0RF hydroxyzine HCl 25 mg tablet 25 mg PO TID PRN (Reason: anxiety) Qty: 20 0RF aspirin 81 mg Tablet,Delayed Release (Dr/Ec) 81 mg PO DAILY Qty: 90 4RF Referrals: [facility] [Provider Group] [facility] Rheumatology Service [Provider Group] Jennie Dang MD [Primary Care Provider] - Print Language: Chinese
[2024-09-12 16:56] LABS: MANUAL DIFF FLAG NO
[2024-09-12 16:57] LABS: Basophils Percent Auto 0.4 % (0-2); Eosinophils Absolute Auto 0.1 X10*3/uL (0.0-0.4); Eosinophils Percent Auto 0.6 % (0-4); Hematocrit 36.5 % (37.0-47.0); Hemoglobin 11.7 g/dl (12.0-16.0); Imm Gran Abs Auto 0.04 X10*3/uL (0.00-0.03); Imm Gran Pct Auto 0.4 % (0.0-0.4); Lymphocytes Absolute Auto 2.1 X10*3/uL (1.2-4.9); Lymphocytes Percent Auto 20.6 % (20-40); Mean Corpuscular HGB Conc 32.1 g/dl (31.0-35.0); Mean Corpuscular Hemoglobin 25.4 pg (27.0-33.0); Mean Corpuscular Volume 79.3 fL (80.0-98.0); Monocytes Absolute Auto 0.6 X10*3/uL (0.1-1.2); Monocytes Percent Auto 6.4 % (2-11); Neutrophils Absolute Auto 7.1 x10*3/uL (2.0-8.3); Neutrophils Percent Auto 71.6 % (45-73); Platelet Count 324 X10*3/uL (160-400); Red Cell Distribution Width 15.1 % (11.0-16.0)
--- OUTSIDE RECORDS SUMMARY | 2024-09-12 17:15 | XMS_ITS | Encounter Summary ---
Author Organization [employer] Address [address] [place] [address] Care Team Providers Care K 12 Principal Name Role Phone Jennie Dang MD Primary Care Provider + Encounter Details Date Type Department Care Team (Late st Contact Info) Description 09/12/2024 Orders Only GENERIC EXTERNAL DATA DEPARTMENT Provider, Generic External Data Social History Tobacco Use Types Packs/Day Years Used Date Smoking Tobacco: Never Passive Smoke Exposure: Never Smokeless Tobacco: Never Alcohol Use Standard Drinks/Week Comments Never 0 (1 standard drink = 0.6 oz pur e alcohol) Depression Answer Date Recorded Patient Health Questionnaire-9 Score 15 2024 Patient Health Questionnaire-9 Score 15 2024 Last PHQ-9: Questionnaire Data Not on file 1 07/15/2023 Housing Stability Answer Date Recorded What is your housing situation today? I have [address] [place] [address] you li ve. Do you have problems with any of the following? None of the above 2024 Food Insecurity Answer Date Recorded Within the past 12 months, y ou worried that your food would run out before you got money to buy more: Never True 2024 Within the past 12 months,th e food you bought just didn't last and you didn't have enough money to get more: Never True 02/2024 Transportation Answer Date Recorded In the past 12 months, has l ack of transportation kept you from medical appts, meetings, work or from getting things needed for daily living? No 2024 Utilities Answer Date Recorded In the past 12 months, has t he electric, gas, oil or water company threatened to shut off services in your home? No 2024 Depression Answer Date Recorded Patient Health Questionnaire-2 Score 4 2024 Internet Access Answer Date Recorded Internet Access Q1 No 2024 Internet Access Q2 I do not want or need it 02/2024 Comments No Sex and Gender Information Value Date Recorded Sex Assigned at Female 05/07/2022 10:34 AM EDT Legal Sex Female 10:34 AM EDT Gender Identity Female 05/07/2022 10:34 AM EDT Sexual Orientation Choose not to disclose 2021 10:34 AM EDT documented as of this encounter Plan of Treatment Upcoming Encounters Date Type Department Care Team (Late st Contact Info) Description 12/09/2024 9:00 AM EDT Office Visit [facility] [address] [place], [place] [phone] Belén Gracia CNM [address] [place] [phone] documented as of this encounter Procedures Procedure Name Priority Date/Time Associated Diagnosis Comments CBC WITH AUTO DIFFERENTIAL Routine 09/12/2024 4:53 PM EST documented in this encounter Results * (ABNORMAL) CBC auto differential (09/12/2024 4:53 PM EST) White Blood Count 10.0 4.8 - 10.8 X10*3/uL [facility] Red Blood Count 4.60 4.20 - 5.50 X10*6/uL [facility] Hemoglobin 11.7(L) 12.0 - 16.0 g/dl [facility] Hematocrit 36.5(L) 37.0 - 47.0 % [facility] Mean Corpuscular Volume 79.3(L) 80.0 - 98.0 fL [facility] Mean Corpuscular Hemoglobin 25.4(L) 27.0 - 33.0 pg [facility] Mean Corpuscular HGB Conc 32.1 31.0 - 35.0 g/dl [facility] Red Cell Distribution Width 15.1 11.0 - 16.0 % [facility] Platelet Count 324 160 - 400 X10*3/uL [facility] Mean Platelet Volume 11.0 9.4 - 12.3 fL [facility] Neutrophils Percent Auto 71.6 45 - 73 % [facility] Imm Gran Pct Auto 0.4 0.0 - 0.4 % [facility] Lymphocytes Percent Auto 20.6 20 - 40 % [facility] Monocytes Percent Auto 6.4 2 - 11 % [facility] Eosinophils Percent Auto 0.6 0 - 4 % [facility] Basophils Percent Auto 0.4 0 - 2 % [facility] NRBC Pct Auto 0.0 0.0 - 0.2 /100WBC [facility] Neutrophils Absolute Auto 7.1 2.0 - 8.3 x10*3/uL [facility] Imm Gran Abs Auto 0.04(H) 0.00 - 0.03 X10*3/uL [facility] Lymphocytes Absolute Auto 2.1 1.2 - 4.9 X10*3/uL [facility] Monocytes Absolute Auto 0.6 0.1 - 1.2 X10*3/uL [facility] Eosinophils Absolute Auto 0.1 0.0 - 0.4 X10*3/uL [facility] Basophils Absolute Auto 0.0 0.0 - 0.2 X10*3/uL [facility] NRBC Abs Auto 0.000 0.0 - 0.012 X10*3/uL [facility] 09/12/2024 4:53 PM EST 09/12/2024 4:55 PM EST us Generic External Data Provider LAB BLOOD ORDERAB LES Final Result [facility] [address] [place] [phone] documented in this encounter Visit Diagnoses Not on filedocumented in this encounter Additional Health Concerns Assessment Noted Time PHQ-9 Depression Total Score: 15 024 11:32 AM EST documented as of this encounter Care Teams K 12 Principal Relationship Specialty Start Date End Date Jennie Dang MD [address] [place] [phone] PCP - General Family Medicine 03/24/18 documented as of this encounter
--- OUTSIDE RECORDS SUMMARY | 2024-09-12 17:15 | XMS_ITS | Encounter Summary ---
Author Organization [employer] Address [address] [place] [address] Care Team Providers Care Automotive Metalsmith Name Role Phone Jennie Dang MD Primary Care Provider + Reason for Visit * Reason Onset Date Comments Med Refill 05/20/2024 Encounter Details Date Type Department Care Team (Late st Contact Info) Description 05/20/2024 Refill [facility] [address] [place], [place] [phone] Jennie Dang MD [address] [place], [place] [phone] Mixed anxiety and depressive disorder Social History Tobacco Use Types Packs/Day Years [...] Description 12/09/2024 9:00 AM EDT Office Visit [facility] [address] [place] [phone] Belén Gracia CNM [address] [place] [phone] documented as of this encounter Visit Diagnoses Diagnosis Mixed anxiety and depressive disorder Dysthymic disorder documented in this encounter Additional Health Concerns Assessment Noted Time PHQ-9 Depression Total Score: 15 024 11:32 AM EST documented as of this encounter Care Teams Automotive Metalsmith Relationship Specialty Start Date End Date Jennie Dang MD [address] [place] [phone] PCP - General Family Medicine 03/24/18 documented as of this encounter
--- OUTSIDE RECORDS SUMMARY | 2024-09-12 17:15 | XMS_ITS | Encounter Summary ---
Author Organization [employer] Address [address] [place] [address] Care Team Providers Care Account Review Specialist Name Role Phone Jennie Dang MD Primary Care Provider + Reason for Visit * Reason Onset Date Comments Medication Question 09/04/2024 Encounter Details Date Type Department Care Team ([facility] st Contact Info) Description 09/04/2024 Telephone [facility] [address] [place], [place] [phone] Jennie Dang MD [address] [place], [place] [phone] Medication Question Social History Tobacco Use Types Packs/Day Years [...] AM EDT documented as of this encounter Miscellaneous Notes * Telephone Encounter - Belén Gracia CNM - 09/04/2024 4:16 PM EST Noted, thanks. * Telephone Encounter - Ysabel Cook RN - 09/04/2024 4:06 PM EST Telephone call returned to pt. Pt states she would like to restart Depo injection, per chart has not been on it for several years. Advised her that office visit would be needed before restarting thismedication. Pt requested 09/08/24 after hematology appt. Scheduled pt for 09/08/24 with CNFlorence avelar. Pt in agreement, verbalized understanding, no further questions. * Telephone Encounter - Siva Jeffery - 09/04/2024 3:50 PM EST tC from pt requesting a call back to discuss control options. Contact pt at [phone] documented in this encounter Plan of Treatment Upcoming Encounters Date Type Department Care Team (Late st Contact Info) Description 12/09/2024 9:00 AM EDT Office Visit [facility] [address] [place] [phone] Belén Gracia CNM [address] [place] [phone] documented as of this encounter Visit Diagnoses Not on filedocumented in this encounter Additional Health Concerns Assessment Noted Time PHQ-9 Depression Total Score: 15 024 11:32 AM EST documented as of this encounter Care Teams Account Review Specialist Relationship Specialty Start Date End Date Jennie Dang MD [address] [place] [address] PCP - General Family Medicine 03/24/18 documented as of this encounter
--- OUTSIDE RECORDS SUMMARY | 2024-09-12 17:15 | XMS_ITS | Encounter Summary ---
Author Organization [facility] Address [address] [facility] [address] [place] [address] Care Team Providers Care Technology Project Manager Name Role Phone Jennie Dang MD Primary Care Provider + Reason for Referral * Imaging (Routine) - Authorized Specialty Diagnoses / Procedures Referred By Contac t Referred To Contact Radiology Diagnoses Breast cancer screening by mammogram Procedures BI Mammogram Screening Tomosynthesis Bilateral Belén Gracia CNM [address] [place] [address] Phone: tel: fax: [facility] [address] [place] [address] Phone: tel: fax: Referral ID Status Reason Start Date Expiration Date V isits Requested Visits Authorized [id number] Authorized 09/08/2024 09/08/2025 1 1 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 Encounter Details Date Type Department Care Team (Late st Contact Info) Description 09/08/2024 3:30 PM EST Office Visit [facility] MEDICINE [address], [place] [phone] Belén Gracia CNM [address], [place] [phone] Breast cancer screening by mammogram (Primary Dx); Family planning counseling Social History Tobacco Use Types Packs/Day Years [...] AM EDT documented as of this encounter Last Filed Vital Signs Vital Sign Reading Time Taken Comments Blood Pressure 144/92 09/08/2024 3:49 PM EST Pulse 75 09/08/2024 3:49 PM EST Temperature 36.6 ??C (97.8 ??F) 09/08/2024 3:49 PM ES T Respiratory Rate 16 09/08/2024 3:49 PM EST Oxygen Saturation 99% 09/08/2024 3:49 PM EST Inhaled Oxygen Concentration - - Weight 109 kg (240 lb) 09/08/2024 3:49 PM EST Height 165.1 cm (5' 5 ) 09/08/2024 3:49 PM EST Body Mass Index 39.94 09/08/2024 3:49 PM EST documented in this encounter Progress Notes * Belén Gracia, RADHA - 09/08/2024 3:30 PM EST Subjective Patient ID: Ingris Parham is a 44 y.o. female who presents for control Here to discuss control options. Considering Depo. Not currently sexually active, but has newAMAB partner. LMP 08/31. Monthly menses x 3-5 days, bleeding heavier on ASA, but manageable. Previously used oral contraceptive pill and IUD. Not planning any more pregnancies. Pap NIL/HPV neg 07/2020. Recent heme visit, positive anticardiolipin antibody. At increased risk of DVT, advised to avoid estrogen containing contraception, started on 81mg ASA. Depo is MEC Cat 3 with positive anticardiolipin antibody. Review of Systems Genitourinary: Negative for menstrual problem. Objective BP (!) 144/92 (BP Location: Left arm, Patient Position: Sitting, BP Cuff Size: Large adult long) Pulse 75 Temp 97.8 ??F (36.6 ??C) (Temporal) Resp 16 Ht 5' 5 (1.651 m) Wt 240 lb (109 kg) LMP 08/31/2024 (Exact Date) SpO2 99% BMI 39.94 kg/m?? Physical Exam Constitutional: Appearance: Normal appearance. Neurological: Mental Status: She is alert. Psychiatric: Mood and Affect: Mood normal. Behavior: Behavior normal. Assessment/Plan Diagnoses and all orders for this visit: Family planning counseling - POCT , urine manually resulted test negative today. Reviewed that progestin only pill, implant and IUD would be safest options. Combined hormonal methods and Depo not recommended due to C/V risk. Together we agree to tryprogestin only pill. Start today, backup x 7 d. ACHES reviewed. Take at same time daily. If missed pill, take SAADIA and take next pill at usual time and use backup method x 7d. Menstrual changes common in first few months of use, may not have a period at all. This is fine. Followup 3 months if all well, sooner if unhappy with method. Declines condoms/EC but aware both available here if needed. Other orders - norethindrone (Ortho Micronor) 0.35 MG tablet; Take 1 tablet (0.35 mg) by mouth Once per day. Reviewed breast cancer screening. No family hx breast/RECORD CLERK cancer, no breast symptoms. Would like toget mammogram this year. Order placed. documented in this encounter Plan of Treatment Upcoming Encounters Date Type Department Care Team (Late st Contact Info) Description 12/09/2024 9:00 AM EDT Office Visit [facility] MEDICINE [address], [place] [phone] Belén Gracia CNM [address], [place] [phone] Scheduled Orders Name Type Priority Associated Diagnoses Orde r Schedule BI Mammogram Screening Tomosynthesis Bilateral Imaging Routine Breast cancer screening by mammogram Expected: 09/08/2024, Expires: 11/08/2025 documented as of this encounter Procedures Procedure Name Priority Date/Time Associated Diagnosis Comments POCT , URINE Routine 09/08/2024 4:04 PM EST Family planning counseling documented in this encounter Results * POCT , urine manually resulted (09/08/2024 4:04 PM EST) Preg Test, Ur Negative Negative, Indeterminate, None Detected, Invalid, Specimen unsatisfactory for evaluation, Weakly Positive QC Media Lot # [id number] Lot# Expiration Date [id number] Urine 09/08/2024 4:04 PM EST Belén Gracia CNM POINT OF CARE TEST ENTER/ EDIT ORDERABLES Final Result documented in this encounter Visit Diagnoses Diagnosis Breast cancer screening by mammogram- Primary Family planning counseling Other general counseling and advice for contraceptive management documented in this encounter Additional Health Concerns Assessment Noted Time PHQ-9 Depression Total Score: 15 024 11:32 AM EST documented as of this encounter Care Teams Technology Project Manager Relationship Specialty Start Date End Date Jennie Dang MD [address] [place] [phone] PCP - General Family Medicine 03/24/18 documented as of this encounter
--- OUTSIDE RECORDS SUMMARY | 2024-09-12 17:15 | XMS_ITS | Encounter Summary ---
Author Organization [facility] Address [address] [facility] [address] [place] [address] Care Team Providers Care Storage Solutions Architect Name Role Phone Jennie Dang MD Primary Care Provider + Encounter Details Date Type Department Care Team (Late Contact Info) Description 06/29/[address] [facility] MEDICINE [address] [place] [phone] Jennie Dang MD [address] [place] [phone] Social History Tobacco Use Types Packs/Day Years Used Date Smoking Tobacco: Never Smokeless Tobacco: Never Alcohol Use Standard Drinks/Week Comments Never 0 (1 standard drink = 0.6 oz pur e alcohol) Depression Answer Date Recorded Patient Health Questionnaire-9 Score 6 06/29/2022 Depression Answer Date Recorded Patient Health Questionnaire-2 Score 2 06/29/2022 Comments Unknown Sex and Gender Information Value Date Recorded Sex Assigned at Female 05/07/2022 10:34 AM EDT Legal Sex Female 10:34 AM EDT Gender Identity Female 05/07/2022 10:34 AM EDT Sexual Orientation Choose not to disclose 2021 10:34 AM EDT COVID-19 Exposure Response Date Recorded In the last 10 days, have yo u been in contact with someone who was confirmed or suspected to have Coronavirus/COVID-19? No / Unsure 06/29/2022 11:16 AM EST documented as of this encounter Plan of Treatment Upcoming Encounters Date Type Department Care Team (Late Contact Info) Description 12/09/2024 9:00 AM EDT Office Visit [facility] [address] [place] [address] [place] [phone] Belén Gracia CNM [address] [place] [address] documented as of this encounter Visit Diagnoses Not on filedocumented in this encounter Additional Health Concerns Assessment Noted Time PHQ-9 Depression Total Score: 6 06/29/20 22 11:27 AM EST documented as of this encounter Care Teams Storage Solutions Architect Relationship Specialty Start Date End Date Jennie Dang MD [address] [place] [address] PCP - General Family Medicine 03/24/18 documented as of this encounter
--- OUTSIDE RECORDS SUMMARY | 2024-09-12 17:15 | XMS_ITS | Clinical Summary ---
Author Organization [employer] Address [address] [place] [address] Care Team Providers Care Ekg Monitor Tech Name Role Phone Jennie Dang MD Primary Care Provider + Allergies No known active allergies Medications hydrOXYzine pamoate (Vistaril) 25 MG capsuleIndicatio ns:Mixed anxiety and depressive disorder 1 tab po bid prn anxiety / 2 tabs po at bedtime prn insomnia/aniety 120 capsule 3 Active Blood Pressure Monitor kitIndications:E levated blood pressure reading Use as directed 3x/week 1 kit 3 Active traZODone (Desyrel) 50 MG tablet 1/2 tab po bid prn anxiety attack 30 tablet 1 4 Active sertraline (Zoloft) 100 MG tabletIndication s:Mixed anxiety and depressive disorder Take 1.5 tablets (150 mg) by mouth Once per day. 135 tablet 3 4 03/19/20 25 Active fluticasone (Flonase) 50 MCG/ACT nasal sprayIndications :Viral upper respiratory tract infection Administer 1 spray into each nostril Once per day. 16 g 4 Active azithromycin (Zithromax) 250 MG tablet Take 2 tabs PO daily x 1d then 1 tab PO daily on D2 to D5 6 tablet 4 Active albuterol 108 (90 Base) MCG/ACT inhalerIndicatio ns:Influenza A INHALE 2 PUFFS BY INHALATION ROUTE EVERY 8 HOURS 8.5 g 1 4 Active norethindrone (Ortho Micronor) 0.35 MG tablet Take 1 tablet (0.35 mg) by mouth Once per day. 28 tablet 12 5 09/08/19 26 Active Active Problems Problem Noted Date Diagnosed Date Influenza A 07/10/2024 Viral upper respiratory tract infection 07/10/19 25 Assessment & Plan (07/10/2024 9:12 PM EST): Rest (sleep at least 8 hours a night). Hydrate with plenty of water (avoid caffeine and alcohol). Use saline nose drops to loosen mucus+ Flonase daily x 5d Take Acetaminophen (Tylenol??) as needed to reduce fever, headache, body aches or discomfort Gargle with salt water and use throat sprays/lozenges for throat pain. Use heated, humidified air. If you do not have a humidifier, take hot showers. Re consult prn if sxs do not improve within 48h with above meds. Bronchitis 05/19/2024 Assessment & Plan (05/19/2024 1:22 PM EST): Likely complication of recent URI. Rx Z-pack + Albuterol q6h prn cough x 1w + Tylenol prn CP. Out of work today and tomorrow, she says she doesn't need a letter for work. Re consult prn worsening of sxs. Will order labs in 3m to fu w me Hyperglycemia 03/19/2024 Assessment & Plan (07/09/2024 1:35 PM EST): RO IFG Order RBS and A1c Calculus of gallbladder with out cholecystitis without obstruction 03/19/2024 Assessment & Plan (07/09/2024 1:32 PM EST): Asymptomatic Advised re low fat diet, re consult prn sxs abd pain, nausea, vomiting, icterus, mostly related to meals. Lupus anticoagulant disorder 03/19/2024 Assessment & Plan (07/09/2024 1:35 PM EST): Incidental dx at ED. Seen by Dr Das and started on ASA prophylaxis pending addtl w/u FU with hematology and reminded to take ASA daily. Precordial pain 03/19/2024 Assessment & Plan (07/09/2024 1:36 PM EST): Most likely anxiety, obesity? RO IFG Treat anxiety and fu at next RV Elevated blood pressure reading 08/03/2022 Assessment & Plan (07/10/2024 9:11 PM EST): Likely due to URI, use of decongestants Advised to take tylenol prn instead of combos, increase water intake FU BP in 1-2m w me Assessment & Plan (05/19/2024 1:23 PM EST): Borderline, likely due to acute bronchitis. No change in POC Order labs prior to next appt. Assessment & Plan (11/12/2022 1:37 PM EDT): bp is generally at goal, no need to start medications at this time. Counseled re low salt diet/increase moderate physical activity. Check home BP BIW and prn CP/CHANEL/PINTO Non smoking patient. Continue to check bp twice per week FU in 4 months Assessment & Plan (10/03/2022 12:27 PM EDT): Check BP at home and FU with me in 3 weeks. Assessment & Plan (08/03/2022 12:07 PM EST): Counseled regarding weight reduction and low sodium intake. FU with me at next visit. At high risk for cardiovascular disease 08/03/19 Assessment & Plan (08/03/2022 12:07 PM EST): Mother has ACS at age 62 other second degree relatives with ACS. No history of early ACS. Will order lipids, BMP, A1C and FU at next visit. Discussed re weight reduction options including exercise, life style modifications, diet, referral to route specialist. Discussed re lower calorie intake, increase dietary fiber Dysmenorrhea 06/27/2022 Mixed anxiety and depressive disorder 06/27/2022 Assessment & Plan (07/10/2024 9:12 PM EST): Dong better on Zoloft 50mg, no change in meds FU in 3mo Assessment & Plan (07/09/2024 1:36 PM EST): Increase Zoloft to 100mg/d, add trazodone 25mg bid prn anxiet, dc Hydroxyzine Assessment & Plan (11/12/2022 1:36 PM EDT): seems to be doing well with breathing exercise, meditation and yoga continue sertraline 100mg daily and use hydroxazine only when needed Assessment & Plan (10/03/2022 12:26 PM EDT): Seems to be doing much better with medication and herbal teas. Recommended to do meditation as well in the afternoon She feels safe at home and is able to contract for safety continue sertraline 100mg per day and use hydroxyzine around 3 pm for 2-3 weeks and FU with me in 3 weeks. Assessment & Plan (09/05/2022 1:06 PM EST): Increase sertraline to 100mg. DC gabapentin due to intolerance and FU with me in 4 weeks. Use hydroxazine 25-50 mg BID PRN anxiety and 25-50mg qhs. Pt feels safe at home and is able to reach out for safety and FU with me in 4 weeks. Assessment & Plan (08/21/2022 12:13 PM EST): Pt tolerates meds well, no improvement of symptoms. increase sertraline to 75 mg per day + gabapentin 200mg BID Pt feel safe at home and is able to reach out for safety. FU with MH counselor and FU with me in 2 months. Assessment & Plan (08/03/2022 12:05 PM EST): Exacerbated by recent health scares both personal and in the family. Start Sertralin 25 mg x two weeks then increase to 50 mg + Gapabentin 50 mg qhs. FU with psychiatric from work connection as scheduled and FU with me in 4-5 weeks. Pt is able to reach out for safety and has crisis number. No SI/HI Premenstrual tension syndrome 06/27/2022 Visual impairment 06/27/2022 Vitamin D deficiency 06/27/2022 Assessment & Plan (08/21/2022 12:14 PM EST): Start vitamin D supplementation and counseled outdoor exercise. Hernia of anterior abdominal wall 03/24/2018 Midline low back pain without sciatica 8 Obesity (BMI 35.0-39.9 without comorbidity) 03/08 Encounters Date Type Department Care Team Description 09/12/2024 Orders Only GENERIC EXTERNAL DATA DEPARTMENT Provider, Generic External Data 09/08/2024 3:30 PM EST Office Visit [address] [address] Belén Gracia CNM Breast cancer screening by mammogram (Primary Dx); Family planning counseling 09/08/2024 Travel 09/04/[address] [address] Jennie Dang MD Medication Question 08/07/2024 Patient Outreach [address] [address] Jennie Dang MD Pre-visit Planning ((Unable to reach for PVP screening, LVM)) 07/02/[address] [address] Jennie Dang MD August recall from Last 3 Months Immunizations Name Administration Dates Next Due Influenza injectable quadriv alent IIV4 with preservative 08/13/2019,03/24/2018 Influenza injectable quadrivalent preservative f ree 05/17/2020 Social History Tobacco Use Types Packs/Day Years Used Date Smoking Tobacco: Never Passive Smoke Exposure: Never Smokeless Tobacco: Never Tobacco Cessation:Counseling Given: Not Answered Alcohol Use Standard Drinks/Week Comments Never 0 [...] not to disclose 2021 10:34 AM EDT Last Filed Vital Signs Vital Sign Reading [...] Mass Index 39.94 09/08/2024 3:49 PM EST Plan of Treatment Upcoming Encounters Date Type Department Care Team (Late st Contact Info) Description 12/09/2024 9:00 AM EDT Office Visit [facility] MEDICINE [address] [place] [address] Belén Gracia, CNM [address] [place] [address] Health Maintenance Due Date Last Done Comments Alcohol/Substance Use Screening 1992 DTaP/Tdap/Td Vaccines (1 - Tdap) 1999 Hepatitis B Vaccines (1 of 3 - 19+ 3-dose series) 1999 Mammogram 2020 Cervical Cancer Screening 08/05/2023 HPV/Cotest 08/05/2023 08/05/2020 Pap Smear 08/05/2023 08/05/2020, 08/05/2020 COVID-19 Vaccine (4 - 2023-2 5 season) 2024 06/23/2021, 12/06/2020, 11/04/2020 Influenza Vaccine (#1) 2024 , 08/13/2019, 03/24/2018 Depression Monitoring (PHQ-9) 11/12/2024, 2024 Depression Screening 2025 2024, 2024 SDOH Screening 2025 2024 Family Planning (PISQ) 09/08/2025 09/08/2024 Tobacco Screening 09/08/2025 09/08/2024 Lipid Panel 08/09/2027 08/09/2022 Zoster Vaccines (1 of 2) 2030 RSV Patients and Patients Aged 60 years or older (1 - 1-dose 75+ series) 2055 HIV Screening Completed 08/13/2019 Hepatitis C Screening Completed 08/13/2019 HIB Vaccines Aged Out No longer eligi ble based on patient's age to complete this topic HPV Vaccines Aged Out No longer eligi ble based on patient's age to complete this topic Hepatitis A Vaccines Aged Out No long er eligible based on patient's age to complete this topic IPV Vaccines Aged Out No longer eligi ble based on patient's age to complete this topic Meningococcal Vaccine Aged Out No austen jf eligible based on patient's age to complete this topic Pneumococcal Vaccine: Pediatrics (0 to 5 Years) and At-Risk Patients (6 to 49) Years) Aged Out No longer eligible b ased on patient's age to complete this topic RSV under 20 months Aged Out No longe r eligible based on patient's age to complete this topic Rotavirus Vaccines Aged Out No longer eligible based on patient's age to complete this topic Procedures Procedure Name Priority Date/Time Associated Diagnosis Comments CBC WITH AUTO DIFFERENTIAL Routine 09/12/2024 4:53 PM EST POCT , URINE Routine 09/08/2024 4:04 PM EST Family planning counseling LIPID PANEL WITH REFLEX TO DIRECT LDL Routine 08/09/2022 9:01 AM EST At high risk for cardiovascular disease HPV MRNA E6/E7 Routine 08/05/2020 12:00 AM EST PAP SMEAR Routine 08/05/2020 12:00 AM EST [facility] HISTORICAL HEPATITIS C ANTIBODY RFLX Routine 08/13/2019 2:30 PM EST [facility] HISTORICAL HIV AB/AG Routine 08/13/2019 2:30 PM EST from Last 3 Months or Most Recently Relevant to Health Maintenance Results * (ABNORMAL) CBC auto differential (09/12/2024 4:53 PM EST) White Blood Count 10.0 4.8 - 10.8 X10*3/uL [facility] Red Blood Count 4.60 4.20 - 5.50 X10*6/uL [facility] Hemoglobin 11.7(L) 12.0 - 16.0 g/dl [facility] Hematocrit 36.5(L) 37.0 - 47.0 % [facility] Mean Corpuscular Volume 79.3(L) 80.0 - 98.0 fL [facility] Mean Corpuscular Hemoglobin 25.4(L) 27.0 - 33.0 pg [facility] Mean Corpuscular HGB Conc 32.1 31.0 - 35.0 g/dl [facility] Red Cell Distribution Width 15.1 11.0 - 16.0 % [facility] Platelet Count 324 160 - 400 X10*3/uL [facility] Mean Platelet Volume 11.0 9.4 - 12.3 fL [facility] Neutrophils Percent Auto 71.6 45 - 73 % [facility] Imm Gran Pct Auto 0.4 0.0 - 0.4 % [facility] Lymphocytes Percent Auto 20.6 20 - 40 % [facility] Monocytes Percent Auto 6.4 2 - 11 % [facility] Eosinophils Percent Auto 0.6 0 - 4 % [facility] Basophils Percent Auto 0.4 0 - 2 % [facility] NRBC Pct Auto 0.0 0.0 - 0.2 /100WBC [facility] Neutrophils Absolute Auto 7.1 2.0 - 8.3 x10*3/uL [facility] Imm Gran Abs Auto 0.04(H) 0.00 - 0.03 X10*3/uL [facility] Lymphocytes Absolute Auto 2.1 1.2 - 4.9 X10*3/uL [facility] Monocytes Absolute Auto 0.6 0.1 - 1.2 X10*3/uL [facility] Eosinophils Absolute Auto 0.1 0.0 - 0.4 X10*3/uL [facility] Basophils Absolute Auto 0.0 0.0 - 0.2 X10*3/uL [facility] NRBC Abs Auto 0.000 0.0 - 0.012 X10*3/uL [facility] 09/12/2024 4:53 PM EST 09/12/2024 4:55 PM EST us Generic External Data Provider LAB BLOOD ORDERAB LES Final Result [facility] [address] [place] [phone] * POCT , urine manually resulted (09/08/2024 4:04 PM EST) Preg Test, Ur Negative Negative, Indeterminate, None Detected, Invalid, Specimen unsatisfactory for evaluation, Weakly Positive QC Media Lot # [id number] Lot# Expiration Date [id number] Urine 09/08/2024 4:04 PM EST Belén Gracia CNM POINT OF CARE TEST ENTER/ EDIT ORDERABLES Final Result * (ABNORMAL) Lipid Panel with Reflex to Direct LDL (08/09/2022 9:01 AM EST) Cholesterol, Total 159 <200 mg/dL [facility] HDL Cholesterol 38(L) > OR = 50 mg/dL [facility] Triglycerides 191(H) <150 mg/dL [facility] LDL Cholesterol 92 mg/dL (calc) [facility] Comment: Reference range: <100 Desirable range <100 mg/dL for primary prevention; ?? <70 mg/dL for patients with CHD or diabetic patients with > or = 2 CHD risk factors. LDL-C is now calculated using the Bear-White calculation, which is a validated novel method providing better accuracy than the Friedewald equation in the estimation of LDL-C. Bear SS et al. NATHALIE. 2013;310(19): 5772-0523 (http://education.DeNA/faq/YYU958) Chol/HDLC Ratio 4.2 <5.0 (calc) [facility] Non-HDL Cholesterol 121 <130 mg/dL (calc) [facility] Comment: For patients with diabetes plus 1 major ASCVD risk factor, treating to a non-HDL-C goal of <100 mg/dL (LDL-C of <70 mg/dL) is considered a therapeutic option. 08/09/2022 9:01 AM EST 08/09/2022 9:01 AM EST Narrative [facility] - 08/09/2022 8:51 PM EST FASTING:YES FASTING: YES Jennie Dang MD LAB BLOOD ORDERABLES Fin al Result [facility] [address], [place] [address] [facility] [address], ([address]) [place] [address] * HPV mRNA E6/E7 (08/05/2020 12:00 AM EST) HPV nRNA E6/E7 Not Detected Not Detected [facility] Comment: Methodology: Veterinary Parasitologist-Mediated Amplification This assay detects E6/E7 viral messenger RNA (mRNA) from 14 high-risk HPV types (16,18,31,33,35,39,45,51,52,56,58,59,66,68). ? The analytical performance characteristics of this assay have been determined by [facility]. The modifications have not been cleared or approved by the FDA. This assay has been validated pursuant to the CLIA regulations and is used for clinical purposes. ?? For additional information, please refer to http://education.LevelUp/WZK292h4 (This link if provided for information/ educational purposes only.) 08/05/2020 Jennie Dang MD LAB BLOOD ORDERABLES Fin al Result Performing Organization Address [facility] Co de Phone Number [facility] [address] [place] [address] * Pap Smear (08/05/2020 12:00 AM EST) Swab Historical Provider LAB CYTOLOGY ORDERABLES F inal Result Performing Organization Address [facility] Co de Phone Number [facility] [address] [place] [phone] * HEPATITIS C ANTIBODY RFLX (08/13/2019 2:30 PM EST) HEPATITIS C ANTIBODY NONREACTIVE NONREACTIVE [facility] Comment: Antibodies to HCV not detected; does not exclude early acute HCV infection. 08/13/2019 2:30 PM EST Jennie Dang MD HISTORICAL/NON ORDERABLE LABS Final Result Performing Organization Address [facility] de Phone Number [facility] [address] * HIV AB/AG (08/13/2019 2:30 PM EST) [facility] HIV AG/AB NONREACTIVE NR [facility] Comment: HIV-1 p24 Ag and/or HIV-1/HIV-2 Ab not detected. ?? A test result that is nonreactive does not exclude the possibility of exposure to or infection with HIV-1 and/or HIV-2. Nonreactive results in this assay for individuals with prior exposure to HIV-1 and/or HIV-2 may be due to antigen and antibody levels that are below the limit of detection of this assay. ?? The [employer] Equipment Operator HIV Ag/Ab Combo assay result and supplemental assay results should be interpreted in conjunction with the patient's clinical presentation, history and other laboratory results. ??If the results are inconsistent with clinical evidence, additional testing is suggested to confirm the result. 08/13/2019 2:30 PM EST us Jennie Dang MD HISTORICAL/NON ORDERABLE LABS Final Result Performing Organization Address [facility] de Phone Number [facility] [address] from Last 3 Months or Most Recently Relevant to Health Maintenance Insurance [facility] OPEN ACCESS * Guarantor: Ingris Parham Account Type Relation to Patient Date of Phone Billing Address Personal/Family Self [address] [place] [phone] * Guarantor: Inrgis Parham Account Type Relation to Patient Date of Phone Billing Address Personal/Family Self [address] [place] Care Teams Ekg Monitor Tech Relationship Specialty Start Date End Date Jennie Dang MD [address] [place] [phone] PCP - General Family Medicine 03/24/18
--- OUTSIDE RECORDS SUMMARY | 2024-09-12 17:15 | XMS_ITS | Encounter Summary ---
Author Organization [employer] Address [address] [place] [address] Care Team Providers Care Jewel Bearing Driller Name Role Phone Jennie Dang MD Primary Care Provider + Encounter Details Date Type Department Care Team (Latest Contact Info) Description 09/08/2024 Travel Social History Tobacco Use Types Packs/Day Years [...] Description 12/09/2024 9:00 AM EDT Office Visit [facility] [address] [place] [address] Belén Gracia CNM [address] [place] [address] documented as of this encounter Visit Diagnoses Not on filedocumented in this encounter Additional Health Concerns Assessment Noted Time PHQ-9 Depression Total Score: 15 024 11:32 AM EST documented as of this encounter Care Teams Jewel Bearing Driller Relationship Specialty Start Date End Date Jennie Dang MD [address] [place] [address] PCP - General Family Medicine 03/24/18 documented as of this encounter
[2024-09-12 17:21] LABS: Alanine Aminotransferase 10 U/L (0-31); Albumin Level 4.1 g/dL (3.5-5.0); Anion Gap 11 (12-20); Aspartate Amino Transferase 18 U/L (5-31); Bilirubin Total 0.4 mg/dL (0.0-1.0); Blood Urea Nitrogen 13 mg/dL (9-16); Calcium 9.5 mg/dL (8.4-10.2); Carbon Dioxide 24 mmol/L (22-29); Chloride 108 mmol/L (96-108); Creatinine Clr Calc Pharmacy 114.4; Estimated Glomerular Filt Rate > 60; Glucose Random 135 mg/dL (60-115); Lipase 20 U/L (8-78); Magnesium 1.9 mg/dL (1.6-2.6); Potassium 3.1 mmol/L (3.3-5.1); Sodium 140 mmol/L (135-145); Total Protein 7.6 g/dL (6.5-8.0)
[2024-09-12 17:26] LABS: Troponin-I High Sensitivity < 2.7 ng/L (<3.5-17.0)
[2024-09-12 17:27] LABS: HCG Quantitative < 2 mIU/mL
[2024-09-12 18:01] LABS: Alkaline Phosphatase 66 U/L (39-117)
[2024-09-12] MEDS: iohexoL 350 MG/ML 100 ML INFUS..BTL IV (18:03)
[2024-09-12] MEDS: 0.9 % Sodium Chloride 1,000 ML 999 ML IV (18:07)
--- NOTE | 2024-09-12 18:07 | PC.NURSE ---
Pt returned to room from CT scan, IV placed to left AC infiltrated, new IV started to right AC by gas technician placed. Fluids started. NSR on tele
[2024-09-12 18:29] VITALS: BP 153/85; PULSE 82; RESP 14; O2SAT 99
[2024-09-12 19:24] VITALS: BP 133/67; PULSE 78; RESP 18; TEMP 36.8; O2SAT 100
--- NOTE | 2024-09-12 19:24 | MHC.EDTECH ---
This tech took over care of pt at 1900, rounded and introduced self to pt, vitals taken,labs drawn and sent to lab,patient ambulated to the bathroom with a steady gait,call murphy in reach
[2024-09-12] MEDS: Potassium Chloride Packet 20 MEQ PACKET 40 MEQ PO (19:37)
--- NOTE | 2024-09-12 19:44 | PC.NURSE ---
pt stating she is having alot of life stressors with recent deaths and she hasnt been eating/drinking or taking care of herself, she states today has been a wake up call that she needs to do better for herself, medicated per order, rn cardiac cath intact nsr 70s. ivf running per order.
[2024-09-12 19:50] LABS: Troponin-I High Sensitivity 3.9 ng/L (<3.5-17.0)
[2024-09-12] MEDS: Acetaminophen 325 MG TABLET 650 MG PO (20:49)
--- NOTE | 2024-09-12 20:56 | PC.NURSE ---
pt a&ox3, vss, monitor car operator nsr, pt medicated with tylenol for 3/10 lt arm pain, pt to discharge home
[2024-09-12 20:57] VITALS: BP 141/68; PULSE 77; RESP 18; TEMP 36.7; O2SAT 100
== END 2024-09-12 20:58 | disposition home or self-care (01) ==
PROVIDERS: Nurse Practitioner Family; Physician Assistant Medical; Emergency Provider Emergency Medicine Emergency Medical Services; PCP Internal Medicine
DX: R07.9 Chest pain, unspecified (principal); E87.6 Hypokalemia; R06.02 Shortness of breath; D68.61 Antiphospholipid syndrome; Z79.82 Long term (current) use of aspirin; Z79.899 Other long term (current) drug therapy
CPT/HCPCS: 36415; 71275; 80053; 83690; 83735; 84484; 84702; 85025; 93005; 96360; 99284; 99285; Q9967

== ENCOUNTER → 2024-09-12 16:33 | Outpatient (BNV) | payer OTHER, SELFPAY | PROVIDERS: Emergency Provider Emergency Medicine Emergency Medical Services; PCP Internal Medicine; Visit Provider Internal Medicine Cardiovascular Disease | DX: R00.0 Tachycardia, unspecified (principal) | CPT/HCPCS: 93010 ==

== ENCOUNTER → 2024-09-12 16:58 | Outpatient (BNV) | payer OTHER, SELFPAY | PROVIDERS: Emergency Provider Emergency Medicine Emergency Medical Services; PCP Internal Medicine; Visit Provider Radiology Neuroradiology | DX: J98.11 Atelectasis (principal) | CPT/HCPCS: 71275 ==

== ENCOUNTER 2024-09-16 11:25 | Outpatient (REF) | payer OTHER, SELFPAY ==
--- OUTSIDE RECORDS SUMMARY | 2024-09-16 13:29 | XMS_ITS | Clinical Summary ---
Author Organization [facility] ity Address [address] [place] [address] Care Team Providers Care Hopper Feeder Name Role Phone Unavailable Primary Care Provider Unavailabl e Social History Tobacco Use Types Packs/Day Years Used Date Smoking Tobacco: Never Assessed Comments Unknown Sex and Gender Information Value Date Recorded Sex Assigned at Not on file Legal Sex Female 8:20 AM EST Gender Identity Not on file Sexual Orientation Not on file Plan of Treatment Health Maintenance Due Date Last Done Comments Breast Cancer Screening 1980 DTaP,Tdap,and Td Vaccines (1 - Tdap) 1999 Hepatitis B Vaccines (1 of 3 - 19+ 3-dose series) 1999 Cervical Cancer Screening: P ap Smear 2001 COVID-19 Vaccine (2023-2 5 season) 2024 Influenza Vaccine (#1) 2024 HIB Vaccines Aged Out No longer eligi [...] on patient's age to complete this topic MMR Vaccines Aged Out No longer eligi ble based on patient's age to complete this topic Meningococcal ACWY Vaccine Aged Out N o longer eligible based on patient's age to complete this topic Meningococcal B Vacine Aged Out No lo nger eligible based on patient's age to complete this topic Pneumococcal Vaccine: Pediat rics (0 to 5 Years) and At-Risk Patients (6 to 64 Years) Aged Out No longer eligible b ased on patient's age to complete this topic RSV Immunization Patients Un rebel 20 months Aged Out No longer eligible b ased on patient's age to complete this topic Varicella Vaccines Aged Out No longer eligible based on patient's age to complete this topic
--- OUTSIDE RECORDS SUMMARY | 2024-09-16 13:30 | XMS_ITS | Encounter Summary ---
Author Organization [employer] Address [address] [place] [address] Care Team Providers Care Sales Coordinator Name Role Phone Jennie Dang MD Primary [...] Description 12/09/2024 9:00 AM EDT Office Visit [facility] MEDICINE [address] [place] [phone] Belén Gracia CNM [address] [place] [address] 12/10/2024 11:45 AM EDT Office Visit [facility] MED[facility]INE [address] [place] [phone] Jennie Dang MD [address] [place] [address] documented as of this encounter Visit Diagnoses Not on filedocumented in this encounter Additional Health Concerns Assessment Noted Time PHQ-9 Depression Total Score: 15 024 11:32 AM EST documented as of this encounter Care Teams Sales Coordinator Relationship Specialty Start Date End Date Jennie Dang MD [address] [place] [phone] PCP - General Family Medicine 03/24/18 documented as of this encounter
--- OUTSIDE RECORDS SUMMARY | 2024-09-16 13:30 | XMS_ITS | Encounter Summary ---
Author Organization [employer] Address 75 [facility] 7t [place] [address] Care Team Providers Care Television Tube Inspector Name Role Phone Jennie Dang MD Primary Care Provider + Reason for Visit * Reason Onset Date Comments Med Refill 05/20/2024 Encounter Details Date Type Department Care Team (Late st Contact Info) Description 05/20/[address] [facility] [address] [place], [place] [phone] Jennie Dang MD [address] [place], [place] [phone] Mixed anxiety and depressive disorder Social History [...] Description 12/09/2024 9:00 AM EDT Office Visit [facility] [address] [place] [phone] Belén Gracia CNM [address] [place] [phone] 12/10/2024 11:45 AM EDT Office Visit [address] [address] Jennie Dang MD [address] [place] [phone] documented as of this encounter Visit Diagnoses Diagnosis Mixed anxiety and depressive disorder Dysthymic disorder documented in this encounter Additional Health Concerns Assessment Noted Time PHQ-9 Depression Total Score: 15 024 11:32 AM EST documented as of this encounter Care Teams Television Tube Inspector Relationship Specialty Start Date End Date Jennie Dang MD [address] [place] [phone] PCP - General Family Medicine 03/24/18 documented as of this encounter
--- OUTSIDE RECORDS SUMMARY | 2024-09-16 13:30 | XMS_ITS | Encounter Summary ---
Author Organization [facility] [employer] Address [address] [facility] [address] 7t [place] [address] Care Team Providers Care Railroad Surveyor Name Role Phone Jennie Dang MD Primary [...] Description 12/09/2024 9:00 AM EDT Office Visit [facility] [address] [place] [address] Belén Gracia CNM [address] [place] [address] 12/10/2024 11:45 AM EDT Office Visit [facility] [address] [place] [address] Jennie Dang MD 230 [place] [address] documented as of this encounter Procedures Procedure Name Priority Date/Time Associated Diagnosis Comments HIGH SENSITIVITY TROPONIN I Routine 09/12/2024 7:20 PM EST CTA CHEST PE PROTOCAL Routine 09/12/2024 6:52 PM EST HIGH SENSITIVITY TROPONIN I Routine 09/12/2024 4:53 PM EST CBC WITH AUTO DIFFERENTIAL Routine 09/12/2024 4:53 PM EST HCG, TOTAL, QN Routine 09/12/2024 4:53 PM EST MAGNESIUM Routine 09/12/2024 4:53 PM EST LIPASE Routine 09/12/2024 4:53 PM EST COMPREHENSIVE METABOLIC PANEL Routine 09/12/2024 4:53 PM EST documented in this encounter Results * High Sensitivity Troponin I (09/12/2024 7:20 PM EST) TROPONIN I HIGH SENSITIVITY 3.9 <3.5 - 17.0 ng/L [facility] Comment:The Ledbetter high sens itivity Troponin-I results should beused in conjunction with other diagnostic information suchas ECG, clinical observations and information, and patientsymptoms to aid in the diagnosis of FL. 09/12/2024 7:20 PM EST 09/12/2024 7:30 PM EST us Generic External Data Provider LAB BLOOD ORDERAB LES Final Result Performing Organization Address City/State/[facility] Co de Phone Number [facility] [address] [place] [address] [phone] * CTA Chest PE Protocal (09/12/2024 6:52 PM EST) Anatomical Region Laterality Modality Body, Chest Computed Tomogra phy 09/12/2024 6:52 PM EST Narrative 09/12/2024 6:54 PM EST ? [facility] ?[address] ?[place] [address] ? CT Scan Report ? Signed ? Patient: Ingris Parham ?MR#: [id number] ? : 1980 ?Acct:[id number] ? Age/Sex: 44 / F ?ADM Date: 09/12/24 ? Loc: HO.ED ? Attending Dr: ? Ordering Physician: Yana Moore ?? Date of Service: 09/12/24 ?? Procedure(s): CT angio chest PE protocol ?? Accession Number(s): [id number] ? cc: Jennie Dang MD; Yana Moore ? Report Number: ?? [id number]: Total DLP = ??273.00 mGy-cm ? CLINICAL HISTORY: chest pressure r o PE ? CT angiography chest with contrast. With MIP MPR Postprocessing. ? Comparison: Chest x-ray from 03/28/2024 ? Findings: ?? No central pulmonary embolism. No aortic dissection. Mild artifacts noted. ?? Mild cardiomegaly present in the multichamber enlargement of the heart. ?? Trace pericardial effusion with mild mediastinal fluid. Nonenlarged ?? mediastinal lymphadenopathy. ?? Mild bibasilar atelectasis. No pneumothorax or pleural effusion. Mild old ?? rib deformities accentuated by motion artifacts. Degenerative changes ?? include imaged spine. Fdwzshuv-ve-ubjfcy height loss of the T2 is old and ?? likely on a congenital basis given anomaly and variant formation of the T1 ?? with doubling of the left-sided ribs from T1 for the purposes of this ?? dictation only ?? Partially imaged upper abdomen is unremarkable accounting for technique ?? and artifacts. ? IMPRESSION: ?? 1. No central pulmonary embolism. ? 2. Bibasilar atelectasis ? This document has been electronically signed by: Isaias Sibley MD on ?? 09/12/2024 18:52:50 ? Dictated By: ?Isaias Sibley MD ? Signed By: ?<Electronically signed by Isaias Sibley MD in OV> ? 09/12/24 1853 ? DD/ 51 ? TD/TT: 09/12/241851 ? Mold Tooler: ? Procedure Note Lucina, Dagmar - 09/12/[address] [place] [address] [address] Scan Report Signed Patient: Nic Parham#: [id number] : 1980Acct:[id number] Age/Sex: 44 / FADM Date: 09/12/24 Loc: HO.ED Attending Dr: Ordering Physician: Yana Moore Date of Service: 09/12/24 Procedure(s): CT angio chest PE protocol Accession Number(s): [id number] cc: Jennie Dang MD; Yana Moore Report Number: [id number]: Total DLP = 273.00 mGy-cm CLINICAL HISTORY: chest pressure r o PE CT angiography chest with contrast. With MIP MPR Postprocessing. Comparison: Chest x-ray from 03/28/2024 Findings: No central pulmonary embolism. No aortic dissection. Mild artifacts noted. Mild cardiomegaly present in the multichamber enlargement of the heart. Trace pericardial effusion with mild mediastinal fluid. Nonenlarged mediastinal lymphadenopathy. Mild bibasilar atelectasis. No pneumothorax or pleural effusion. Mild old rib deformities accentuated by motion artifacts. Degenerative changes include imaged spine. 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 IMPRESSION: 1. No central pulmonary embolism. 2. Bibasilar atelectasis This document has been electronically signed by: Isaias Sibley MD on 09/12/2024 18:52:50 Dictated By: Isaias Sibley MD Signed By: <Electronically signed by Isaias Sibley MD in OV> 09/12/241852 DD/ 51 TD/TT: 09/12/241851 Mold Tooler: [facility] External Provider IMG CT PROCEDURES Final Result * hCG, Total, Quantitative (09/12/2024 4:53 PM EST) HCG Quantitative <2 mIU/mL [facility] Comment:Weeks post LMP Appro ximate hCG(Last Menstrual Period) Range (mIU/ml)3 - 4 weeks 9 - 1304 - 5 weeks 75 - 2,6005 - 6 weeks 850 - 20,8006 - 7 weeks 4000 - 100,2007 - 12 weeks 11,500 - 289,72450 - 16 weeks 18,300 - 137,57493 - 29 weeks (2nd trimester) 1,400 - 53,61086 - 41 weeks (3rd trimester) 940 - 60,000The Ledbetter B- hCG assay is used for the early detection ofpregnancy; it cannot be used to diagnose any conditionunrelated to . If a B-hCG level is not supportedby the clinical evidence, results should be confirmed by analternative method (qualitative urine hCG, for example). 09/12/2024 4:53 PM EST 09/12/2024 4:55 PM EST Generic External Data Provider LAB BLOOD ORDERAB LES Final Result Performing Organization Address [facility] Phone Number [facility] [address] [place] [phone] * High Sensitivity Troponin I (09/12/2024 4:53 PM EST) Pathologist [facility] TROPONIN I HIGH SENSITIVITY <2.7 <3.5 - 17.0 ng/L [facility] Comment:The Ledbetter high sens itivity Troponin-I results should beused in conjunction with other diagnostic information suchas ECG, clinical observations and information, and patientsymptoms to aid in the diagnosis of FL. 09/12/2024 4:53 PM EST 09/12/2024 4:55 PM EST Generic External Data Provider LAB BLOOD ORDERAB LES Final Result Performing Organization Address [facility] Phone Number [facility] [address] [place] [phone] * Lipase (09/12/2024 4:53 PM EST) [facility] Lipase 20 8 - 78 U/L [facility] 09/12/2024 4:53 PM EST 09/12/2024 4:55 PM EST Generic External Data Provider LAB BLOOD ORDERAB LES Final Result Performing Organization Address [facility] Phone Number [facility] [address] [place] [phone] * Magnesium (09/12/2024 4:53 PM EST) Pathologist [facility] Magnesium 1.9 1.6 - 2.6 mg/dL [facility] 09/12/2024 4:53 PM EST 09/12/2024 4:55 PM EST us Generic External Data Provider LAB BLOOD ORDERAB LES Final Result [facility] [address] [place] [phone] [phone] * (ABNORMAL) Comprehensive Metabolic Panel (09/12/2024 4:53 PM EST) Sodium 140 135 - 145 mmol/L [facility] Potassium 3.1(L) 3.3 - 5.1 mmol/L [facility] Chloride 108 96 - 108 mmol/L [facility] Carbon Dioxide 24 22 - 29 mmol/L [facility] Anion Gap 11(L) 12 - 20 [facility] Urea Nitrogen (BUN) 13 9 - 16 mg/dL [facility] Creatinine, Serum 0.81 0.5 - 1.4 mg/dL [facility] Creatinine Clr Calc Pharmacy 114.4 [facility] Comment:Provided height and weight: 172.72 cm,108.6 kg.eGFR (calculated from the MDRD study equation) and eCrCl(calculated from the Cockcroft-Gault equation) are based ondifferent parameters and may not yield comparable results.If eCrCl result is absurd, please check patient'sheight/weight. Estimated Glomerular Filt Rate >60 [facility] Comment:Chronic Kidney Disea se: Estimated GFR < 60 mL/min/1.78o1Fdpmft Kidney Disease: Estimated GFR < 15 mL/min/1.73m2 Glucose 135(H) 60 - 115 mg/dL [facility] Calcium 9.5 8.4 - 10.2 mg/dL [facility] Bilirubin, Total 0.4 0.0 - 1.0 mg/dL [facility] Aspartate Amino Transferase 18 5 - 31 U/L [facility] Alanine Aminotransferase 10 0 - 31 U/L [facility] Total Protein 7.6 6.5 - 8.0 g/dL [facility] Albumin Level 4.1 3.5 - 5.0 g/dL [facility] Alkaline Phosphatase 66 39 - 117 U/L [facility] 09/12/2024 4:53 PM EST 09/12/2024 4:55 PM EST us Generic External Data Provider LAB BLOOD ORDERAB LES Final Result [facility] [address] [place] [phone] [phone] * (ABNORMAL) CBC auto differential (09/12/2024 4:53 PM EST) White Blood Count 10.0 4.8 - 10.8 X10*3/uL [facility] Red Blood Count 4.60 4.20 - 5.50 X10*6/uL [facility] Hemoglobin 11.7(L) 12.0 - 16.0 g/dl [facility] Hematocrit 36.5(L) 37.0 - 47.0 % [facility] Mean Corpuscular Volume 79.3(L) 80.0 - 98.0 fL [facility] Mean Corpuscular Hemoglobin 25.4(L) 27.0 - 33.0 pg [facility] Mean Corpuscular HGB Conc 32.1 31.0 - 35.0 g/dl [facility] Red Cell Distribution Width 15.1 11.0 - 16.0 % [facility] Platelet Count 324 160 - 400 X10*3/uL [facility] Mean Platelet Volume 11.0 9.4 - 12.3 fL [facility] Neutrophils Percent Auto 71.6 45 - 73 % [facility] Imm Gran Pct Auto 0.4 0.0 - 0.4 % [facility] Lymphocytes Percent Auto 20.6 20 - 40 % [facility] Monocytes Percent Auto 6.4 2 - 11 % [facility] Eosinophils Percent Auto 0.6 0 - 4 % [facility] Basophils Percent Auto 0.4 0 - 2 % [facility] NRBC Pct Auto 0.0 0.0 - 0.2 /100WBC [facility] Neutrophils Absolute Auto 7.1 2.0 - 8.3 x10*3/uL [facility] Imm Gran Abs Auto 0.04(H) 0.00 - 0.03 X10*3/uL [facility] Lymphocytes Absolute Auto 2.1 1.2 - 4.9 X10*3/uL [facility] Monocytes Absolute Auto 0.6 0.1 - 1.2 X10*3/uL [facility] Eosinophils Absolute Auto 0.1 0.0 - 0.4 X10*3/uL [facility] Basophils Absolute Auto 0.0 0.0 - 0.2 X10*3/uL [facility] NRBC Abs Auto 0.000 0.0 - 0.012 X10*3/uL [facility] 09/12/2024 4:53 PM EST 09/12/2024 4:55 PM EST us Generic External Data Provider LAB BLOOD ORDERAB LES Final Result Performing Organization Address City/State/[facility] de Phone Number [facility] [address] [place] [phone] documented in this encounter Visit Diagnoses Not on filedocumented in this encounter Additional Health Concerns Assessment Noted Time PHQ-9 Depression Total Score: 15 024 11:32 AM EST documented as of this encounter Care Teams Railroad Surveyor Relationship Specialty Start Date End Date Jennie Dang MD [address] [place] [phone] PCP - General Family Medicine 03/24/18 documented as of this encounter
--- OUTSIDE RECORDS SUMMARY | 2024-09-16 13:30 | XMS_ITS | Encounter Summary ---
Author Organization [email or web address] Address [address] [facility] 7t [place] [address] Care Team Providers Care Lead Php Developer Name Role Phone Jennie Dang MD Primary Care Provider + Reason for Visit * Reason Onset Date Comments Chart prep 09/14/2024 Encounter Details Date Type Department Care Team ([facility] st Contact Info) Description 09/14/2024 Telephone [facility] MED[facility]INE [address] [place], [place] [phone] Jennie Dang MD [address] [place], [place] [phone] Chart prep Social History Tobacco Use Types Packs/Day Years [...] encounter Miscellaneous Notes * Telephone Encounter - Charu Ervin MA - 09/14/2024 1:10 PM EDT Chart Prep Labs: not done Images: not done Vaccines due: yes Referrals: pending appt Screenings: mammogram , pap smear Overdue care gaps: Up to date documented in this encounter Plan of Treatment Upcoming Encounters Date Type Department Care Team (Late st Contact Info) Description 12/09/2024 9:00 AM EDT Office Visit [facility] MED[facility]INE [address] [place] [phone] Belén Gracia CNM [address] [place] [address] 12/10/2024 11:45 AM EDT Office Visit [facility]INE [address] [place] [phone] Jennie Dang MD [address] [place] [address] documented as of this encounter Visit Diagnoses Not on filedocumented in this encounter Additional Health Concerns Assessment Noted Time PHQ-9 Depression Total Score: 15 024 11:32 AM EST documented as of this encounter Care Teams Lead Php Developer Relationship Specialty Start Date End Date Jennie Dang MD [address] [place] [phone] PCP - General Family Medicine 03/24/18 documented as of this encounter
--- OUTSIDE RECORDS SUMMARY | 2024-09-16 13:30 | XMS_ITS | Encounter Summary ---
Author Organization [employer] Address 75 [facility] 7t [place] [address] Care Team Providers Care Spare Hand Name Role Phone Jennie Dang MD Primary Care Provider + Reason for Visit * Reason Onset Date Comments ER Follow-up 09/14/2024 Encounter Details Date Type Department Care Team ([facility] st Contact Info) Description 09/14/2024 Telephone [facility] MEDICINE [address] [place], [place] [phone] Jennie Dang MD [address] [place], [place] [phone] ER Follow-up Social History Tobacco Use Types Packs/Day Years [...] encounter Miscellaneous Notes * Telephone Encounter - Jennie Dang MD - 09/15/2024 3:27 PM EDT K levels at the ED noted. She was given K at that ED visit, I will fu w her later this week. Pleaselet me know if theres's anything specific you're concerned about? Anything I'm missing? * Telephone Encounter - Myriam Rothman RN - 09/14/2024 11:43 AM EDT Images from the original note were not included. Telephone call returned to patient in regards to below message. Appointment scheduled for patient for Future Appointments Date Time Provider Department Center 09/16/2024 11:00 AM Jennie Dang MD MEDICINE [facility] 12/09/2024 9:00 AM Belén Gracia CNM MEDICINE [facility] Patient verbalized understanding and denied having any further questions or concerns at this time. Patient to follow up as needed. * Telephone Encounter - Erica Chawla - 09/14/2024 9:21 AM EDT Patient calling to report ED visit on : Date: 09/12 Hospital: [facility] Seen for: Chest Pain Symptomatic No *if yes message should go to Triage Patient advised will forward to team nurse for follow up documented in this encounter Plan of Treatment Upcoming Encounters Date Type Department Care Team (Late st Contact Info) Description 12/09/2024 9:00 AM EDT Office Visit [facility] MED[facility]INE [address] [place], [place] [phone] Belén Gracia CNM [address] [place] [address] 12/10/2024 11:45 AM EDT Office Visit [facility] [address] [place] [address] Jennie Dang MD [address] [place], [place] [phone] documented as of this encounter Visit Diagnoses Not on filedocumented in this encounter Additional Health Concerns Assessment Noted Time PHQ-9 Depression Total Score: 15 024 11:32 AM EST documented as of this encounter Care Teams Spare Hand Relationship Specialty Start Date End Date Jennie Dang MD [address] [place] [address] [phone] PCP - General Family Medicine 03/24/18 documented as of this encounter
--- OUTSIDE RECORDS SUMMARY | 2024-09-16 13:30 | XMS_ITS | Encounter Summary ---
Author Organization [employer] [facility] Address [address] [facility] 7t [place] [address] Care Team Providers Care Economics Teacher Name Role Phone Jennie Dang MD Primary Care Provider + Reason for Referral * Imaging (Routine) - Authorized Specialty Diagnoses / Procedures Referred By Contac t Referred To Contact Radiology Diagnoses Breast cancer screening by mammogram Procedures BI Mammogram Screening Tomosynthesis Bilateral Belén Gracia CNM [address] [place] [address] Phone: tel: fax: [facility] [address] [place] [address] Phone: tel: fax: Referral ID Status Reason Start Date Expiration Date V isits Requested Visits Authorized [id number] Authorized 09/08/2024 09/08/2025 1 1 Reason for Visit * 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 No family hx breast/MILLER DISTILLERY cancer, no breast symptoms. Would like toget mammogram this year. Order placed. documented in this encounter Plan of Treatment Upcoming Encounters Date Type Department Care Team (Late st Contact Info) Description 12/09/2024 9:00 AM EDT Office Visit [facility] MEDICINE [address] [place] [phone] Belén Gracia CNM [address] [place] [address] 12/10/2024 11:45 AM EDT Office Visit [facility] MED[facility]INE [address] [place] [phone] Jennie Dang MD [address] [place], [place] [phone] Scheduled Orders Name Type Priority Associated Diagnoses [...] Media Lot # [id number] Lot# Expiration Date [id number] Urine 09/08/2024 4:04 PM EST Belén Gracia [...] documented as of this encounter Care Teams Economics Teacher Relationship Specialty Start Date End Date Jennie Dang MD [address] [place] [phone] PCP - General Family Medicine 03/24/18 documented as of this encounter
--- OUTSIDE RECORDS SUMMARY | 2024-09-16 13:30 | XMS_ITS | Encounter Summary ---
Author Organization [employer] Address 75 [facility] 7t [place] [address] Care Team Providers Care Solution Advisor Name Role Phone Jennie Dang MD Primary Care Provider + Reason for Visit * Reason Comments ER Follow-up Encounter Details Date Type Department Care Team (Latest Contact Info) Description 09/16/2024 11:00 AM EDT Office Visit [facility] MEDICINE [address] [place], [place] [phone] Jennie Dang MD [address] [place], [place] [phone] Precordial pain (Primary Dx); Lupus anticoagulant disorder (CMS/HCC) Social History Tobacco Use Types Packs/Day Years [...] Sign Reading Time Taken Comments Blood Pressure 131/80 09/16/2024 10:56 AM EDT Pulse 73 09/16/2024 10:56 AM EDT Temperature 36.1 ??C (96.9 ??F) 09/16/2024 10:56 AM E DT Respiratory Rate 16 09/16/2024 10:56 AM EDT Oxygen Saturation 100% 09/16/2024 10:56 AM EDT Inhaled Oxygen Concentration - - Weight 111 kg (245 lb 4 oz) 09/16/2024 10:56 AM EDT Height 165.1 cm (5' 5 ) 09/16/2024 10:56 AM EDT Body Mass Index 40.81 09/16/2024 10:56 AM EDT documented in this encounter Miscellaneous Notes * Assessment & Plan Note - Eveline Childs MA - 09/16/2024 11:57 AM EDT Associated Problem(s): Lupus anticoagulant disorder (CMS/HCC) Patient currently on Aspirin, no history of thrombotic events. Reach out to Rheumatology for FU. I will refer to Rheumatology for halfway FU. * Assessment & Plan Note - Eveline Childs MA - 09/16/2024 11:56 AM EDT Associated Problem(s): Precordial pain Probably related to GERD. I will start Omeprazole BID X 1 month. According to patient's risk factors especially IFG, I will refer to Cardiology. documented in this encounter Plan of Treatment Upcoming Encounters Date Type Department Care Team (Late st Contact Info) Description 12/09/2024 9:00 AM EDT Office Visit [facility] MED[facility] [address] [place] [address] [phone] Belén Gracia CNM [address] [place] [address] 12/10/2024 11:45 AM EDT Office Visit [facility] [address] [place] [phone] Jennie Dang MD [address] [place] [phone] Scheduled Orders Name Type Priority Associated Diagnoses Orde r Schedule Potassium Lab Routine Precordial pain Expected: 09/16/2024 (Approximate), Expires: 09/16/2025 Magnesium Lab Routine Precordial pain Expected: 09/16/2024, Expires: 09/16/2025 documented as of this encounter Visit Diagnoses Diagnosis Precordial pain- Primary Lupus anticoagulant disorder (CMS/HCC) Primary hypercoagulable state documented in this encounter Additional Health Concerns Assessment Noted Time PHQ-9 Depression Total Score: 15 024 11:32 AM EST documented as of this encounter Care Teams Solution Advisor Relationship Specialty Start Date End Date Jennie Dang MD [address] [place] [phone] PCP - General Family Medicine 03/24/18 documented as of this encounter
--- OUTSIDE RECORDS SUMMARY | 2024-09-16 13:30 | XMS_ITS | Encounter Summary ---
Author Organization [employer] Address [address] [facility] 7t [place] [address] Care Team Providers Care Powerhouse Oiler Name Role Phone Jennie Dang MD Primary Care Provider + Reason for Visit * Reason Onset Date Comments Medication Question 09/04/2024 Encounter Details Date Type Department Care Team ([facility] st Contact Info) Description 09/04/2024 Telephone [facility] [address] [place], [place] [phone] Jennie Dang MD [address] [place], [place] [phone] Medication Question Social History Tobacco Use Types [...] to discuss control options. Contact pt at [phone] documented in this encounter Plan of Treatment Upcoming Encounters Date Type Department Care Team (Late st Contact Info) Description 12/09/2024 9:00 AM EDT Office Visit [facility] [address] [place], [place] [phone] Belén Gracia CNM [address] [place] [address] 12/10/2024 11:45 AM EDT Office Visit [facility] [address] [place] [address] Jennie Dang MD [address] [place] [address] documented as of this encounter Visit Diagnoses Not on filedocumented in this encounter Additional Health Concerns Assessment Noted Time PHQ-9 Depression Total Score: 15 024 11:32 AM EST documented as of this encounter Care Teams Powerhouse Oiler Relationship Specialty Start Date End Date Jennie Dang MD [address] [place] [phone] PCP - General Family Medicine 03/24/18 documented as of this encounter
--- OUTSIDE RECORDS SUMMARY | 2024-09-16 13:30 | XMS_ITS | Encounter Summary ---
Author Organization [employer] Address [address] 7[address] [place] [address] Care Team Providers Care Test Department Helper Name Role Phone Jennie Dang MD Primary Care Provider + Encounter Details Date Type Department Care Team (Latest Contact Info) Description 09/16/2024 Travel Social History Tobacco Use Types Packs/Day [...] 12/09/2024 9:00 AM EDT Office Visit [facility] MED[facility]INE [address] [place] [phone] Belén Gracia CNM [address] [place] [address] 12/10/2024 11:45 AM EDT Office Visit [facility] [address] [place] [phone] Jennie Dang MD [address] [place] [address] documented as of this encounter Visit Diagnoses Not on filedocumented in this encounter Additional Health Concerns Assessment Noted Time PHQ-9 Depression Total Score: 15 024 11:32 AM EST documented as of this encounter Care Teams Test Department Helper Relationship Specialty Start Date End Date Jennie Dang MD [address] [place] [phone] PCP - General Family Medicine 03/24/18 documented as of this encounter
--- OUTSIDE RECORDS SUMMARY | 2024-09-16 13:30 | XMS_ITS | Clinical Summary ---
Author Organization [employer] Address 75 [facility] 7t [place] [address] Care Team Providers Care Manager Star Name Role Phone Jennie Dang MD Primary Care Provider + Allergies No known active allergies Medications hydrOXYzine pamoate (Vistaril) 25 MG capsuleIndicati ons:Mixed anxiety and depressive disorder 1 tab po bid prn anxiety / 2 tabs po at bedtime prn insomnia/aniet y 120 capsule 3 Active Blood Pressure Monitor kitIndications: Elevated blood pressure reading Use as directed 3x/week 1 kit 3 Active traZODone (Desyrel) 50 MG tablet 1/2 tab po bid prn anxiety attack 30 tablet 1 4 Active sertraline (Zoloft) 100 MG tabletIndicatio ns:Mixed anxiety and depressive disorder Take 1.5 tablets (150 mg) by mouth Once per day. 135 tablet 3 4 03/19/20 25 Active fluticasone (Flonase) 50 MCG/ACT nasal sprayIndication s:Viral upper respiratory tract infection Administer 1 spray into each nostril Once per day. 16 g 4 Active albuterol 108 (90 Base) MCG/ACT inhalerIndicati ons:Influenza A INHALE 2 PUFFS BY INHALATION ROUTE EVERY 8 HOURS 8.5 g 1 4 Active norethindrone (Ortho Micronor) 0.35 MG tablet Take 1 tablet (0.35 mg) by mouth Once per day. 28 tablet 12 5 09/08/19 26 Active Omeprazole 20 MG tablet delayed-release Take 1 tablet (20 mg) by mouth 2 times daily. 60 tablet 5 Active azithromycin (Zithromax) 250 MG tablet Take 2 tabs PO daily x 1d then 1 tab PO daily on D2 to D5 6 tablet 4 09/17/19 25 Discontin ued(Shubham allred completed ) Active Problems Problem Noted Date Diagnosed Date Viral upper respiratory tract infection 07/10/19 Assessment & Plan (07/10/2024 9:12 PM EST): [...] not improve within 48h with above meds. Hyperglycemia 03/19/2024 Assessment & Plan (07/09/2024 1:35 PM EST): RO IFG Order RBS and A1c Calculus of gallbladder with out cholecystitis without obstruction 03/19/2024 Assessment & Plan (07/09/2024 1:32 PM EST): Asymptomatic Advised re low fat diet, re consult prn sxs abd pain, nausea, vomiting, icterus, mostly related to meals. Lupus anticoagulant disorder 03/19/2024 Assessment & Plan (09/16/2024 11:57 AM EDT): Patient currently on Aspirin, no history of thrombotic events. Reach out to Rheumatology for FU. I will refer to Rheumatology for long term care phlebotomist FU. Assessment & Plan (07/09/2024 1:35 PM EST): Incidental dx at ED. Seen by Dr Das and started on ASA prophylaxis pending addtl w/u FU with hematology and reminded to take ASA daily. Precordial pain 03/19/2024 Assessment & Plan (09/16/2024 11:56 AM EDT): Probably related to GERD. I will start Omeprazole BID X 1 month. According to patient's risk factors especially IFG, I will refer to Cardiology. Assessment & Plan (07/09/2024 1:36 PM EST): [...] exercise, life style modifications, diet, referral to store specialist. Discussed re lower calorie intake, increase [...] to reach out for safety. FU with counselor and FU with me in 2 [...] 8 Obesity (BMI 35.0-39.9 without comorbidity) 03/08 Resolved Problems Problem Noted Date Diagnosed Date Resolved Date Influenza A 07/10/2024 09/16/2024 Bronchitis 05/19/2024 09/16/2024 Assessment & Plan (05/19/2024 1:22 PM EST): Likely complication of recent URI. Rx Z-pack + Albuterol q6h prn cough x 1w + Tylenol prn CP. Out of work today and tomorrow, she says she doesn't need a letter for work. Re consult prn worsening of sxs. Will order labs in 3m to fu w me Encounters Date Type Department Care Team Description 09/16/2024 11:00 AM EDT Office Visit [facility] [address] [place] [phone] Jennie Dang MD Precordial pain (Primary Dx); Lupus anticoagulant disorder (CMS/HCC) 09/16/2024 Travel 09/14/2024 Telephone [facility] [address] [place] [phone] Jennie Dang MD Chart prep 09/14/[address] [address] Jennie Dang MD ER Follow-up 09/12/2024 Orders Only GENERIC EXTERNAL DATA DEPARTMENT Provider, Generic External Data 09/08/2024 3:30 PM EST Office Visit [address] [address] Belén Gracia CNM Breast cancer screening by mammogram (Primary Dx); Family planning counseling 09/08/2024 Travel 09/04/2024 Telephone [facility] [address] [place] [phone] Jennie Dang MD Medication Question 08/07/2024 Patient Outreach [facility] [address] [place] [address] Jennie Dang MD Pre-visit Planning ((Unable to reach for PVP screening, LVM)) 07/02/2024 Telephone [facility] [address] [place] [address] Jennie Dang MD August recall from Last [...] is your housing situation today? [place] have [address] [...] Mass Index 40.81 09/16/2024 10:56 AM EDT Plan of Treatment Upcoming Encounters Date Type Department Care Team (Late st Contact Info) Description 12/09/2024 9:00 AM EDT Office Visit [facility] [address] [place] [phone] Belén Gracia CNM [address] [place] [address] 12/10/2024 11:45 AM EDT Office Visit [facility] [address] [place] [phone] Jennie Dang MD [address] [place] [phone] Health Maintenance Due Date Last Done Comments [...] Family Planning (PISQ) 09/08/2025 09/08/2024 Tobacco Screening 09/16/2025 09/16/2024 Lipid Panel 08/09/2027 08/09/2022 Zoster Vaccines (1 [...] PE PROTOCAL Routine 09/12/2024 6:52 PM EST HCG, TOTAL, QN Routine 09/12/2024 4:53 PM EST HIGH SENSITIVITY TROPONIN I Routine 09/12/2024 4:53 PM EST LIPASE Routine 09/12/2024 4:53 PM EST MAGNESIUM Routine 09/12/2024 4:53 PM EST COMPREHENSIVE METABOLIC PANEL Routine 09/12/2024 4:53 PM EST CBC WITH [...] Recently Relevant to Health Maintenance Results * High Sensitivity Troponin I (09/12/2024 7:20 PM EST) Only the most recent of2 resultswithin the time period is included. TROPONIN I HIGH SENSITIVITY 3.9 <3.5 - 17.0 ng/L [facility] Comment:The [employer] high sens itivity Troponin-I results should beused in conjunction with other diagnostic information suchas ECG, clinical observations and information, and patientsymptoms to aid in the diagnosis of NC. 09/12/2024 7:20 PM EST 09/12/2024 7:30 PM EST us Generic External Data Provider LAB BLOOD ORDERAB LES Final Result [facility] [address] [facility] [place] [phone] * CTA Chest PE Protocal (09/12/2024 6:52 PM EST) Anatomical Region Laterality Modality Body, Chest Computed Tomogra phy 09/12/2024 6:52 PM EST Narrative 09/12/2024 6:54 PM EST ? [facility] ?[address] ?[place] [address] ? [address] Scan Report ? Signed ? Patient: Parham,Ingris ?MR#: [id number] ? : 1980 ?Acct:[id number] ? Age/Sex: 44 / F ?ADM Date: 09/12/24 ? Loc: HO.ED ? Attending Dr: ? Ordering Physician: Yana Moore ?? Date of Service: 09/12/24 ?? Procedure(s): CT angio chest PE protocol ?? Accession Number(s): [id number] ? cc: Jennie Dang MD; Yana Moore ? Report Number: ?? [id number]: Total DLP = ??273.00 mGy-cm ? CLINICAL [...] artifacts. Degenerative changes ?? include imaged spine. Krnucqyv-be-wpmyeg height loss of the T2 is old [...] ? DD/ 51 ? TD/TT: 09/12/241851 ? Unix Systems Administrator: ? Procedure Note Lucina, Dagmar - 09/12/[address] [place] [address] [address] Scan Report Signed Patient: Ingris ParhamMR#: [id number] : 1980Acct:[id number] Age/Sex: 44 / FADM Date: 09/12/24 Loc: HO.ED Attending Dr: Ordering Physician: Yana Moore Date of Service: 09/12/24 Procedure(s): CT angio chest PE protocol Accession Number(s): [id number] cc: Jennie Dang MD; Yana Moore Report Number: [id number]: Total DLP = 273.00 mGy-cm CLINICAL HISTORY: [...] motion artifacts. Degenerative changes include imaged spine. Jkmpqziq-vi-itjbyb height loss of the T2 is old [...] in OV> 09/12/241852 DD/ 51 TD/TT: 09/12/241851 [employer] Systems Administrator: [facility] External Provider IMG CT PROCEDURES Final Result * (ABNORMAL) CBC auto differential (09/12/2024 4:53 PM EST) White Blood Count 10.0 4.8 - 10.8 X10*3/uL [facility] Red Blood Count 4.60 4.20 - 5.50 X10*6/uL [facility] Hemoglobin 11.7(L) 12.0 - 16.0 g/dl [facility] Hematocrit 36.5(L) 37.0 - 47.0 % [facility] Mean Corpuscular Volume 79.3(L) 80.0 - 98.0 fL [facility] Mean Corpuscular Hemoglobin 25.4(L) 27.0 - 33.0 pg [facility] Mean Corpuscular HGB Conc 32.1 31.0 - 35.0 g/dl [facility] Red Cell Distribution Width 15.1 11.0 - 16.0 % [facility] Platelet Count 324 160 - 400 X10*3/uL [facility] Mean Platelet Volume 11.0 9.4 - 12.3 fL [facility] Neutrophils Percent Auto 71.6 45 - 73 % [facility] Imm Gran Pct Auto 0.4 0.0 - 0.4 % [facility] Lymphocytes Percent Auto 20.6 20 - 40 % [facility] Monocytes Percent Auto 6.4 2 - 11 % [facility] Eosinophils Percent Auto 0.6 0 - 4 % [facility] Basophils Percent Auto 0.4 0 - 2 % [facility] NRBC Pct Auto 0.0 0.0 - 0.2 /100WBC [facility] Neutrophils Absolute Auto 7.1 2.0 - 8.3 x10*3/uL [facility] Imm Gran Abs Auto 0.04(H) 0.00 - 0.03 X10*3/uL [facility] Lymphocytes Absolute Auto 2.1 1.2 - 4.9 X10*3/uL [facility] Monocytes Absolute Auto 0.6 0.1 - 1.2 X10*3/uL [facility] Eosinophils Absolute Auto 0.1 0.0 - 0.4 X10*3/uL [facility] Basophils Absolute Auto 0.0 0.0 - 0.2 X10*3/uL [facility] NRBC Abs Auto 0.000 0.0 - 0.012 X10*3/uL [facility] 09/12/2024 4:53 PM EST 09/12/2024 4:55 PM EST us Generic External Data Provider LAB BLOOD ORDERAB LES Final Result [facility] [address] [place] [phone] * hCG, Total, Quantitative (09/12/2024 4:53 PM EST) HCG Quantitative <2 mIU/mL [facility] Comment:Weeks post LMP Appr oximate hCG(Last Menstrual Period) Range (mIU/ml)3 - 4 weeks 9 - 1304 - 5 weeks 75 - 2,6005 - 6 weeks 850 - 20,8006 - 7 weeks 4000 - 100,2007 - 12 weeks 11,500 - 289,61624 - 16 weeks 18,300 - 137,23353 - 29 weeks (2nd trimester) 1,400 - 53,16248 - 41 weeks (3rd trimester) 940 - [...] Organization Address [facility] Phone Number [facility] [address] [place] [phone] * Magnesium (09/12/2024 4:53 PM EST) Pathologist [facility] Magnesium 1.9 1.6 - 2.6 mg/dL [facility] 09/12/2024 4:53 PM EST 09/12/2024 4:55 PM EST Generic External Data Provider LAB BLOOD ORDERAB LES Final Result Performing Organization Address [facility] Phone Number [facility] [address] [place] [phone] * Lipase (09/12/2024 4:53 PM EST) Pathologist [facility] Lipase 20 8 - 78 U/L [facility] 09/12/2024 4:53 PM EST 09/12/2024 4:55 PM EST Generic External Data Provider LAB BLOOD ORDERAB LES Final Result Performing Organization Address [facility] [address] [place] [phone] * (ABNORMAL) Comprehensive Metabolic Panel (09/12/2024 4:53 PM EST) Pathologist [facility] Sodium 140 135 - 145 mmol/L [facility] Potassium 3.1(L) 3.3 - 5.1 mmol/L [facility] Chloride 108 96 - 108 mmol/L [facility] Carbon Dioxide 24 22 - 29 mmol/L [facility] Anion Gap 11(L) 12 - 20 [facility] Urea Nitrogen (BUN) 13 9 - 16 mg/dL [facility] Creatinine, Serum 0.81 0.5 - 1.4 mg/dL [facility] Creatinine Clr Calc Pharmacy 114.4 [facility] Comment:Provided height and weight: 172.72 cm,108.6 kg.eGFR (calculated from the MDRD study equation) and eCrCl(calculated from the Cockcroft-Gault equation) are based ondifferent parameters and may not yield comparable results.If eCrCl result is absurd, please check patient'sheight/weight. Estimated Glomerular Filt Rate >60 [facility] Comment:Chronic Kidney Disea se: Estimated GFR < 60 mL/min/1.69m9Ucpffu Kidney Disease: Estimated GFR < 15 mL/min/1.73m2 Glucose 135(H) 60 - 115 mg/dL [facility] Calcium 9.5 8.4 - 10.2 mg/dL [facility] Bilirubin, Total 0.4 0.0 - 1.0 mg/dL [facility] Aspartate Amino Transferase 18 5 - 31 U/L [facility] Alanine Aminotransferase 10 0 - 31 U/L [facility] Total Protein 7.6 6.5 - 8.0 g/dL [facility] Albumin Level 4.1 3.5 - 5.0 g/dL [facility] Alkaline Phosphatase 66 39 - 117 U/L [facility] 09/12/2024 4:53 PM EST 09/12/2024 4:55 PM EST us Generic External Data Provider LAB BLOOD ORDERAB LES Final Result [facility] [address] [place] [phone] * POCT , urine manually resulted [...] AM EST) Cholesterol, Total 159 <200 mg/dL [facility] HDL Cholesterol 38(L) > OR = 50 mg/dL [facility] Triglycerides 191(H) <150 mg/dL [facility] LDL Cholesterol 92 mg/dL (calc) [facility] Comment: Reference range: <100 Desirable range <100 mg/dL for primary prevention; ?? <70 mg/dL for patients with CHD or diabetic patients with > or = 2 CHD risk factors. LDL-C is now calculated using the Bear-Christopher calculation, which is a validated novel method providing better accuracy than the Friedewald equation in the estimation of LDL-C. Bear VICK et al. NATHALIE. 2013;310(19): 9135-1096 (http://education.[employer]/faq/MZW190) Chol/HDLC Ratio 4.2 <5.0 (calc) [facility] Non-HDL Cholesterol 121 <130 mg/dL (calc) [facility] Comment: For patients with diabetes plus 1 major ASCVD risk factor, treating to a non-HDL-C goal of <100 mg/dL (LDL-C of <70 mg/dL) is considered a therapeutic option. 08/09/2022 9:01 AM EST 08/09/2022 9:01 AM EST Narrative [facility] - 08/09/2022 8:51 PM EST FASTING:YES FASTING: YES Jennie Dang MD LAB BLOOD ORDERABLES Fin al Result [facility] [address], [place] [phone] [facility] [address] [facility], ([address]) [place] [address] * HPV mRNA E6/E7 (08/05/2020 12:00 AM EST) HPV nRNA E6/E7 Not Detected Not Detected [facility] Comment: Methodology: Cake Icer-Mediated Amplification This assay detects E6/E7 viral messenger RNA (mRNA) from 14 high-risk HPV types (16,18,31,33,35,39,45,51,52,56,58,59,66,68). ? The analytical performance characteristics of this assay have been determined by [facility]. The modifications have not been cleared or approved by the FDA. This assay has been validated pursuant to the CLIA regulations and is used for clinical purposes. ?? For additional information, please refer to http://education.Pel[employer]/ZRG321a3 (This link if provided for information/ educational purposes only.) 08/05/2020 Jennie Dang MD LAB BLOOD ORDERABLES Fin al Result Performing Organization Address [facility] Co de Phone Number [facility] [address] * Pap Smear (08/05/2020 12:00 AM EST) Swab Historical Provider LAB CYTOLOGY ORDERABLES F inal Result Performing Organization Address City/[facility]/ZIP Co de Phone Number [facility] [address] [place] [phone] * HEPATITIS C ANTIBODY RFLX (08/13/2019 2:30 PM EST) HEPATITIS C ANTIBODY NONREACTIVE NONREACTIVE [facility] Comment: Antibodies to HCV not detected; does not exclude early acute HCV infection. 08/13/2019 2:30 PM EST Jennie Dang MD HISTORICAL/NON ORDERABLE LABS Final Result Performing Organization Address [facility] Co de Phone Number [facility] [address] * HIV AB/AG (08/13/2019 2:30 PM EST) [facility] HIV AG/AB NONREACTIVE NR [facility] [...] detection of this assay. ?? The [employer] HIV Ag/Ab Combo assay result and supplemental assay results should be interpreted in conjunction with the patient's clinical presentation, history and other laboratory results. ??If the results are inconsistent with clinical evidence, additional testing is suggested to confirm the result. 08/13/2019 2:30 PM EST Jennie Dang MD HISTORICAL/NON ORDERABLE LABS Final Result [facility] [address] from Last 3 Months or Most Recently Relevant to Health Maintenance Insurance [facility] [id number] Care Teams Manager Star Relationship Specialty Start Date End Date Jennie Dang MD [address] [place] [phone] PCP - General Family Medicine 03/24/18
--- OUTSIDE RECORDS SUMMARY | 2024-09-16 13:30 | XMS_ITS | Encounter Summary ---
Author Organization [facility] Address [address] [facility] 7t [place] [address] Care Team Providers Care Tracer Clerk Name Role Phone Jennie Dang MD Primary Care Provider + Encounter Details Date Type Department Care Team (Late Contact Info) Description 06/29/2022 Abstract [facility]INE [address] [place] [address] [phone] Jennie Dang MD [address] [place] [address] [phone] Social History Tobacco Use Types Packs/Day Years [...] 9:00 AM EDT Office Visit [facility] [address] [place] [address] [place] [phone] Belén Gracia, TINA [address] [place], [place] [phone] 12/10/2024 11:45 AM EDT Office Visit [facility] [address] [place], [place] [phone] Jennie Dang MD [address] [place], [place] [phone] documented as of this encounter Visit Diagnoses Not on filedocumented in this encounter Additional Health Concerns Assessment Noted Time PHQ-9 Depression Total Score: 6 06/29/20 22 11:27 AM EST documented as of this encounter Care Teams Tracer Clerk Relationship Specialty Start Date End Date Jennie Dang MD [address] [place] [address] [phone] PCP - General Family Medicine 03/24/18 documented as of this encounter
[2024-09-16 14:41] LABS: Cholesterol 128 mg/dL (<200); HDL Cholesterol 41 mg/dL (>40); LDL Cholesterol Calculated 67 mg/dL (<100); Magnesium 2.2 mg/dL (1.6-2.6); Potassium 4.2 mmol/L (3.3-5.1); Triglycerides 100 mg/dL (<150)
[2024-09-16 14:46] LABS: TSH reflex Free T4 2.51 uIU/mL (0.32-4.0); Vitamin D 25-OH Total 15.4 ng/mL (>30)
[2024-09-16 16:47] LABS: Reflex LDLD? No
== END 2024-09-16 11:26 | disposition home or self-care (01) ==
LOC: HO.HHCL 11:25
PROVIDERS: Visit Provider Internal Medicine
DX: R07.2 Precordial pain (principal); R03.0 Elevated blood-pressure reading, without diagnosis of hypertension
CPT/HCPCS: 36415; 80061; 82306; 83735; 84132; 84443

== ENCOUNTER 2024-09-28 10:40 | Outpatient (AMB) | payer OTHER, SELFPAY ==
[2024-09-28 10:44] VITALS: BP 120/72; PULSE 87; BMI 37.2
--- NOTE | 2024-09-28 10:44 | MHC.OFFVIS ---
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[facility] Follow up/ chest pressure [employer] Required: No Allergies No Known Allergies [No Known Allergies*] Allergy (Verified 09/28/24 10:46) Medication List - Last Reconciled 09/28/24 by SVETA Pereira acetaminophen (Tylenol Extra Strength) 500 mg PO Q6H PRN aspirin 81 mg PO DAILY hydroxyzine HCl 25 mg PO TID PRN norethindrone (contraceptive) mg PO DAILY omeprazole 40 mg PO DAILY HPI HPI 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 She ruled out for ACS and PE. Her EKG did show Q wave lead III and poor R wave progression. She was referred to cardiology in follow up. Today she presents for cardiology consultation. She tells me she has been getting a tightness her upper chest periodically for the last year and a half. The episode that brought her to the emergency room was more intense and traveled up to her neck and by her ears. She was also noting some shortness of breath at that time. She says she has anxiety but these symptoms are not related to feeling anxious at that time. Her symptoms can occur randomly and with physical activity. They are not getting more frequent with time. She has been working on weight loss and increasing her physical activity. She walks routinely and normally tolerates it well. She denies having PND, orthopnea or edema. She does get heart palpitations approximately 2 -3 times per month. She feels her heart beating rapidly for a few seconds and then it resolves. She has never had presyncope, syncope. She live with her 3 children. 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 Her mother had [place] age 59 and required a stent. She also has heart disease in her maternal grandparents. Her father has no known heart disease. She does not smoke or drink alcohol. She does not drink caffeinated beverages. She has never been diagnosed with any heart disease. She has no hypertension, hyperlipidemia or diabetes. [facility] Medical History Pyelonephritis Kidney stone Anxiety PTSD (post-traumatic stress disorder) Surgical History Hx of one miscarriage Hx of nephrolithotomy with removal of calculi Family History Father No problems noted. Mother No problems noted. Social History Household Members: Family Alcohol intake: current Alcohol intake frequency: a few times a month Patient Tobacco Use Status: Never used Tobacco service: No Current occupational status: employed Review of Systems Const All systems reviewed & are unremarkable except as noted in HPI and below ENT Denies dizziness Card Details: chest tightness periodically Denies chest pain, Denies chest pain at rest, Denies chest pain with activity, Reports rapid heart rate (brief palpitations), Denies pedal edema, Denies edema, Denies leg edema, Denies lightheadedness, Denies palpitations, Denies dyspnea, Denies dyspnea on exertion and Denies orthopnea Resp Denies cough, Denies dyspnea and Denies dyspnea on exertion GI Denies hematochezia and Denies change in stool character Musc Denies abnormal gait, Denies limited range of motion, Denies muscle cramps, Denies muscle weakness, Denies numbness, Denies radiating pain into limb, Denies stiffness and Denies tingling Neuro Denies abnormal gait, Denies dizziness, Denies numbness and Denies tingling Endo Denies palpitations Physical Exam Vital Signs: Last Vital Signs Pulse 87 09/28/24 10:44 BP 120/72 09/28/24 10:44 BMI result Body Mass Index 37.2 Const General: cooperative, healthy appearing, comfortable and no acute distress Orientation/consciousness: patient oriented x3 Neck Neck: Yes normal visual inspection Resp Effort & Inspection: normal respiratory effort Auscultation: clear to auscultation bilaterally, no rales, no rhonchi and no wheezes Cardio Rate: regular rate Rhythm: regular rhythm Heart sounds: S1 normal heart sound present, S2 normal heart sound present, no murmurs and no rubs Neuro General: patient oriented x3 Extrem General: Yes normal to inspection, No no pedal edema and No calf tenderness Psych Appearance: grossly normal Mental Status: mental status grossly normal Speech and movement: Normal speech and movement present Assessment & Plan Assessment & Plan (1) Chest discomfort: Code(s): R07.89 - Other chest pain Category: Medical Plan: Reports of intermittent chest tightness with shortness of breath occurring randomly and with physical activity. This has both typical and atypical features. Cardiac risks family history, obesity. EKG done in the emergency room shows no acute findings, Q-wave lead 3 and poor R-wave progression. She is already on daily aspirin. Will check an echocardiogram to assess for structural heart disease. Will check a stress echocardiogram since baseline EKG has some abnormalities, to evaluate for ischemia. Signs and symptoms of angina reviewed with her. Emergency care if ever needed for symptoms not relieved by rest. Cardiology follow-up 4-6 weeks, sooner if needed. (2) Palpitations: Code(s): R00.2 - Palpitations Category: Medical Plan: Reports of brief rapid heart palpitations. She is likely feeling short runs of atrial tachycardia or extrasystoles. Will check a Holter monitor and echocardiogram. Vagal maneuvers reviewed. Emergency care if ever needed for sustained rapid palpitations. (3) Abnormal EKG: Code(s): R94.31 - Abnormal electrocardiogram [ECG] [EKG] Category: Medical Plan: As above Plan Time spent on chart review, documentation, interview and assessment Orders: Orders CA echo stress exercise Today R07.89 - Other chest pain, R94.31 - Abnormal electrocardiogram [ECG] [EKG] ECG 3 day holter monitor Today R00.2 - Palpitations CA echo transthoracic complete Today R07.89 - Other chest pain, R94.31 - Abnormal electrocardiogram [ECG] [EKG] Coding Level of Care Code New Pt Level 4 (29865) Complex EM visit Add On G2211 Diagnoses Chest discomfort R07.89 Palpitations R00.2 Abnormal EKG R94.31 Time Spent (min) 36
== END 2024-09-28 11:17 | disposition home or self-care (01) ==
LOC: HO.HCS 10:41
PROVIDERS: PCP Internal Medicine; Visit Provider Nurse Practitioner Family
DX: R07.89 Other chest pain (principal); R00.2 Palpitations; R94.31 Abnormal electrocardiogram [ECG] [EKG]
CPT/HCPCS: 99204

== ENCOUNTER → 2024-09-28 10:40 | Outpatient (BNVA) | payer OTHER, SELFPAY | PROVIDERS: PCP Internal Medicine; Visit Provider Nurse Practitioner Family ==

== ENCOUNTER 2024-10-05 09:09 | Outpatient (REF) | payer OTHER, SELFPAY | END 2024-10-05 09:10 | disposition home or self-care (01) | LOC: HO.MAMMO 09:09 | PROVIDERS: PCP Internal Medicine; Visit Provider Advanced Practice Midwife | DX: Z12.31 Encounter for screening mammogram for malignant neoplasm of breast (principal) | CPT/HCPCS: 77063; 77067 ==

== ENCOUNTER → 2024-10-05 09:15 | Outpatient (BNV) | payer OTHER, SELFPAY | PROVIDERS: PCP Internal Medicine; Visit Provider Internal Medicine | DX: Z12.31 Encounter for screening mammogram for malignant neoplasm of breast (principal) | CPT/HCPCS: 77063; 77067 ==

== ENCOUNTER → 2024-10-22 09:53 | Outpatient (REF) | payer OTHER, SELFPAY ==
--- NOTE | 2024-10-22 09:59 | CA_ITS ---
Transthoracic Echocardiogram Patient (Last, First, Middle): Ingris Parham, Gender: Female Date of : 1980 Age: 44 Procedure Date: 10/22/2024 Procedure Type: Transthoracic Echocardiogram Location: OP Height: 172.72 cm Weight: 110.68 kg BSA: 2.22 m2 Heart Rate: 73 bpm BP: 120 / 72 mmHg Ignition Specialist: GRETEL Referring MD: Adelaida Walden RETAIL MERCHANDISING SPECIALISTFiona Customer Development Manager: Narendra Mroillo MD Symptoms: R07.89 - Other chest pain Study Quality: Fair ECG Rhythm: Sinus Conclusions: - Essentially normal study Findings Left Ventricle Normal left ventricular size, thickness, and systolic function. The visually estimated ejection fraction is between 60-65%. Spectral Doppler is indicative of a normal filling pattern. Right Ventricle Normal right ventricular cavity size and systolic function. Atria Both atria are normal in size. There is lipomatous hypertrophy of the interatrial septum. There is no evidence of interatrial shunt. Aortic Valve Normal aortic valve structure and function. There is no aortic valve stenosis. There is no aortic valve regurgitation. Mitral Valve Normal mitral valve structure and function. There is trace mitral valve regurgitation. There is no mitral valve stenosis. Pulmonic Valve The pulmonic valve is likely normal. Tricuspid Valve Normal tricuspid valve structure. There is trace tricuspid valve regurgitation. The right ventricular systolic pressure is normal. The right ventricular systolic pressure is 22 mmHg. Normal right atrial pressure. There is no evidence of pulmonary hypertension. Great Vessels All visible segments of the aorta are normal in size. The pulmonary artery was not well visualized. Venous The inferior vena cava is normal in size and collapses greater than 50% with inspiration. Pericardium/Pleural There is no evidence of pericardial effusion. Prior Study Comparison No prior study available for comparison. Measurements 2D Linear Measurements IVSd: 1.09 0.6-0.9/0.6-1.0 cm LVIDd: 4.54 3.9-5.3/4.2-5.9 cm LVIDd Index: 2.05 2.4-3.2/2.2-3.1 cm/m2 LVIDs: 2.41 2.0-3.6 cm LVPWd: 0.98 0.7-1.1 cm LA Diam: 4.10 2.7-3.8/3.0-4.0 cm LAIDs Index: 1.85 1.5-2.3 cm/m2 LV Mass: 202.49 67-162/88-224 g LV Mass Index: 91.21 43-95/49-115 g/m2 LVOT Diam: 2.20 3.0+(-)1.3 cm 2D Systolic Function EF 4C: 59.60 >55% EF 2C: 66.60 >55% EF BiP: 63.20 >55% Mitral Valve MV Pk E: 0.76 MV PK A: 0.57 MV Decel Time: 222.00 E/A: 1.30 E'Lateral: 9.25 E/E' Lat: 8.20 PHT: 65.00 MVA PHT: 3.38 Decel [place]: 3.43 Aortic Valve AoV Pk [place]: 1.15 AoV Pk Grad: 5.00 GETACHEW: 3.56 LVOT LVOT Pk Victor Hugo: 1.00 LVOT Mn [place]: 0.75 LVOT VTI: 0.22 LVOT Pk Grad: 4.00 LVOT Mn Grad: 3.00 LVOT Diam: 2.20 LVOT Area: 3.80 Diastolic Function MV Pk E: 0.76 MV Pk A: 0.57 E/A: 1.30 E' Laterial: 9.25 E/E' Lat: 8.20 Right Ventricle TAPSE (mm): 18.50 TVS' Victor [place]: 12.70 Tricuspid Valve TR Pk Victor [place]: 2.17 TR Pk Grad: 19.00 RA Press: 3.00 RVSP: 22.00 Great Vessels Aorta Sinus of Valsalva: 3.20 2.0-3.5 cm Ao Asc: 3.50 2.1-3.4 cm Pulmonary Veins Pulm Vein S/D 1.10 Pulmonary Valve PV Pk Victor Hugo: 0.95 Peak PV Grad: 4.00 Updated in Other Vendor System with Status of Final Narendra Morillo MD electronically signed on 10/23/2024 2:05:20 PM with status of Final
--- OUTSIDE RECORDS SUMMARY | 2024-10-22 11:30 | XMS_ITS | Encounter Summary ---
Author Organization [facility] Address [address] [facility] [address] [place] [address] Care Team Providers Care Legal Support Manager Name Role Phone Jennie Dang MD Primary Care Provider + Encounter Details Date Type Department Care Team (Late Contact Info) Description 06/29/2022 Abstract [facility] [address] [place] [address] [phone] Jennie Dang MD [address] [place] [address] [phone] Social History Tobacco Use Types Packs/Day Years [...] Description 12/09/2024 9:00 AM EDT Office Visit [facility] [address] [place] [address] [place] [phone] Belén Gracia, TINA [address] [place], [place] [phone] 12/10/2024 11:45 AM EDT Office Visit [facility] [address] [place], [place] [phone] Jennie Dang MD [address] [place], [place] [phone] documented as of this encounter Visit Diagnoses Not on filedocumented in this encounter Additional Health Concerns Assessment Noted Time PHQ-9 Depression Total Score: 6 06/29/20 22 11:27 AM EST documented as of this encounter Care Teams Legal Support Manager Relationship Specialty Start Date End Date Jennie Dang MD [address] [place] [address] [phone] PCP - General Family Medicine 03/24/18 documented as of this encounter
--- OUTSIDE RECORDS SUMMARY | 2024-10-22 11:30 | XMS_ITS | Encounter Summary ---
Author Organization [employer] Address [address] [facility] [address] [place] [address] Care Team Providers Care Film Sorter Name Role Phone Jennie Dang MD Primary Care Provider + Reason for Visit * Reason Onset Date Comments Med Refill 05/20/2024 Encounter Details Date Type Department Care Team (Late st Contact Info) Description 05/20/2024 Refill [facility] [address] [place], [place] [phone] Jennie Dang MD [address] [place], [place] [phone] Mixed anxiety and depressive disorder Social History [...] Description 12/09/2024 9:00 AM EDT Office Visit [facility] [address] [place] [phone] Belén Gracia CNM [address] [place] [phone] 12/10/2024 11:45 AM EDT Office Visit [address] [phone] Jennie Dang MD [address] [place] [phone] documented as of this encounter Visit Diagnoses Diagnosis Mixed anxiety and depressive disorder Dysthymic disorder documented in this encounter Additional Health Concerns Assessment Noted Time PHQ-9 Depression Total Score: 15 024 11:32 AM EST documented as of this encounter Care Teams Film Sorter Relationship Specialty Start Date End Date Jennie Dang MD [address] [place] [phone] PCP - General Family Medicine 03/24/18 documented as of this encounter
--- OUTSIDE RECORDS SUMMARY | 2024-10-22 11:30 | XMS_ITS | Clinical Summary ---
Author Organization [employer] Address [address] [facility] [address] [place] [address] Care Team Providers Care Flux Plant Operator Name Role Phone Jennie Dang MD Primary [...] 28 tablet 12 5 09/08/19 26 Active omeprazole (PriLOSEC) [address] capsule TAKE 1 CAPSULE BY MOUTH EVERY DAY 30 capsule 5 Active ergocalciferol (Vitamin D2) 1.25 MG (67558 UT) capsule Take 1 capsule (1.25 mg) by mouth 1 (one) time per week. 12 capsule 1 5 03/04/20 25 Active Active Problems Problem Noted Date Diagnosed [...] FU. I will refer to Rheumatology for detention FU. Assessment & Plan (07/09/2024 1:35 PM [...] exercise, life style modifications, diet, referral to radiation protection specialist. Discussed re lower calorie intake, increase [...] Encounters Date Type Department Care Team Description 09/17/2024 Telephone [facility] [address] [place] [phone] Jennie Dang MD Error (VOID this visit) 09/17/2024 Telephone [facility] [place] [address] Jennie Dang MD Call Back Request 09/17/2024 Orders Only [facility] [address] [place] [phone] Jennie Dang MD 09/16/2024 11:00 AM EDT Office Visit [facility] [place] [address] Jennie Dang MD Precordial pain (Primary Dx); Lupus anticoagulant disorder (CMS/HCC) 09/16/2024 Refill [facility] [place] [address] Jennie Dang MD 09/16/2024 Travel 09/14/[address] [address] Jennie Dang MD Chart prep 09/14/[address] [phone] Jennie Dang MD ER Follow-up 09/12/2024 Orders Only GENERIC EXTERNAL DATA DEPARTMENT Provider, Generic External Data 09/08/2024 3:30 PM EST Office Visit [address] [address] Dangelo Carpio CNM Breast cancer screening by mammogram (Primary Dx); Family planning counseling 09/08/2024 Travel 09/04/[address] [address] Jennie Dang MD Medication Question 08/07/2024 Patient Outreach [address] [address] Jennie Dang MD Pre-visit Planning ((Unable to reach for PVP screening, LVM)) from Last 3 Months Immunizations Name Administration [...] Description 12/09/2024 9:00 AM EDT Office Visit [facility] [address] [place], [place] [phone] Dangelo Carpio, RADHA [address] [place] [address] 12/10/2024 11:45 AM EDT Office Visit [facility] [address] [facility] [place], [place] [phone] Jennie Dang MD [address] [place] [address] Health Maintenance Due Date Last Done Comments Alcohol/Substance Use Screening 1992 DTaP/Tdap/Td Vaccines (1 - Tdap) 1999 Hepatitis B Vaccines (1 of 3 - 19+ 3-dose series) 1999 Cervical Cancer Screening 08/05/2023 HPV/Cotest 08/05/2023 08/05/2020 Pap Smear 08/05/2023 08/05/2020, 08/05/2020 COVID-19 Vaccine (2023-2 5 season) 2024 06/23/2021, 12/06/2020, 11/04/2020 Influenza Vaccine (#1) 2024 , 08/13/2019, 03/24/2018 Depression Monitoring 11/12/2024 2024 , 2024 Depression Screening 2025 2024, 2024 SDOH Screening 2025 2024 Family Planning (PISQ) 09/08/2025 09/08/2024 Tobacco Screening 09/16/2025 09/16/2024 Mammogram 10/05/2026 10/05/2024 Lipid Panel 09/16/2029 09/16/2024, 08/09/2022 Zoster Vaccines (1 of 2) 2030 [...] Procedure Name Priority Date/Time Associated Diagnosis Comments BI MAMMOGRAM SCREENING TOMOSYNTHESIS BILATERAL Routine 10/05/2024 9:15 AM EDT Breast cancer screening by mammogram MAGNESIUM Routine 09/16/2024 11:27 AM EDT Precordial pain POTASSIUM Routine 09/16/2024 11:27 AM EDT Precordial pain LIPID PANEL WITH REFLEX TO DIRECT LDL Routine 09/16/2024 11:27 AM EDT Elevated blood pressure reading VITAMIN D,25-OH,TOTAL,IA Routine 09/16/2024 11:27 AM EDT Elevated blood pressure reading TSH W/REFLEX TO FT4 Routine 09/16/2024 1 1:27 AM EDT Elevated blood pressure reading HIGH SENSITIVITY TROPONIN I Routine 09/12/2024 7:20 [...] 09/08/2024 4:04 PM EST Family planning counseling HPV MRNA E6/E7 Routine 08/05/2020 12:00 AM EST PAP SMEAR Routine 08/05/2020 12:00 AM EST [facility] HISTORICAL HEPATITIS C ANTIBODY RFLX Routine 08/13/2019 2:30 PM EST Z[facility] HISTORICAL HIV AB/AG Routine 08/13/2019 2:30 PM EST from Last 3 Months or Most Recently Relevant to Health Maintenance Results * BI Mammogram Screening Tomosynthesis Bilateral (10/05/2024 9:15 AM EDT) Anatomical Region Laterality Modality Breast Bilateral Mammography 10/05/2024 9:15 AM EDT Narrative 10/10/2024 5:43 PM EDT ? [facility] [place] ? [address] ?[place] [address] ?[phone] ? Mammography Report ? Signed ? Patient: Parham,Ingris ?MR#: [id number] ? : 1980 ?Acct:[id number] ? Age/Sex: 44 / F ?ADM Date: 03/31/25 ? Loc: HO.MAMMO ? Attending Dr: Dangelo Carpio CNM ? Ordering Physician: DANGELO CARPIO CNM ?Results: 1 ?? Negative ? Date of Service: 10/05/24 ?Follow Up: 1 Year From Orig ?? inal Mammogram ? Procedure(s): MM tomosynthesis screening BI ?? Accession Number(s): [id number] ? cc: Jennie Dang MD; DANGELO CARPIO CNM ? EXAMINATION: ?? MM SCREENING DIGITAL BREAST TOMOSYNTHESIS, BILATERAL ? CLINICAL INFORMATION: ? Screening. Asymptomatic. ? COMPARISON: ?? Mammography: Baseline. ? TECHNIQUE: ?? Digital breast mammography with tomosynthesis is performed in both the ?? craniocaudal and mediolateral oblique views along with computer-aided ?? detection (CAD). ? FINDINGS: ?? The breasts are heterogeneously dense, which may obscure small masses ?? (ACR BI-RADS breast composition Category c). ? There are no significant masses, abnormal calcifications, or other ?? abnormalities. ? MM/MM tomosynthesis screening BI ?? IMPRESSION: ?? No mammographic evidence of malignancy. ? ASSESSMENT: ? BI-RADS BI-RADS 1 - Negative ? RECOMMENDATION: ?? Routine annual mammography screening. ? 1 year F/U ? This examination should not preclude the clinical evaluation of a ?? suspicious palpable abnormality. ? This patient's information was entered into a reminder system with a ?? target due date for their next mammogram. ? Electronically signed by: ??Susie Ellyndara DO ??10/10/2024 05:40 PM EDT ?? RP ? Dictated By: ?Susie Charles DO ? Signed By: ?<Electronically signed by Susie Charles, DO in OV> ? 10/10/24 1740 ? DD/ 0915 ? TD/TT: 10/05/24 0930 ? Truck Loader And Unloader: ? Procedure Note Lucina, Image - 10/10/2024 [facility] [address] [place] [address] Mammography Report Signed Patient: Nic Parham#: [id number] : 1980Acct:[id number] Age/Sex: 44 / FADM Date: 10/05/24 Loc: HO.MAMMO Attending Dr: Dangelo Carpio CNM Ordering Physician: DANGELO CARPIOesults: 1 Negative Date of Service: 10/05/24Follow Up: 1 Year From Orig ina Mammogram Procedure(s): MM tomosynthesis screening BI Accession Number(s): [id number] cc: Jennie Dang MD; DANGELO CARPIO CNM EXAMINATION: MM SCREENING DIGITAL BREAST TOMOSYNTHESIS, BILATERAL CLINICAL INFORMATION: Screening. Asymptomatic. COMPARISON: Mammography: Baseline. TECHNIQUE: Digital breast mammography with tomosynthesis is performed in both the craniocaudal and mediolateral oblique views along with computer-aided detection (CAD). FINDINGS: The breasts are heterogeneously dense, which may obscure small masses (ACR BI-RADS breast composition Category c). There are no significant masses, abnormal calcifications, or other abnormalities. MM/MM tomosynthesis screening BI IMPRESSION: No mammographic evidence of malignancy. ASSESSMENT: BI-RADS BI-RADS 1 - Negative RECOMMENDATION: Routine annual mammography screening. 1 year F/U This examination should not preclude the clinical evaluation of a suspicious palpable abnormality. This patient's information was entered into a reminder system with a target due date for their next mammogram. Electronically signed by: Susie Charles DO 10/10/2024 05:40 PM EDT Dictated By: Susie Charles DO Signed By: <Electronically signed by Susie Charles DO in OV> 10/10/24 1740 DD/ 0915 TD/TT: 10/05/24 0930 Truck Loader And Unloader: Dangelo Carpio CNM IM BI PROCEDURES Edited Result - Final * (ABNORMAL) Vitamin D, 25-Hydroxy, Total, Immunoassay (09/16/2024 11:27 AM EDT) Vitamin D 25-OH Total 15.4(L) >30 ng/mL [facility] Comment: Health Based Reference Values*< 20 ??ng/mL ??Kygfpayfi01-54 ng/mL ??Insufficient> 30 ??ng/mL ??Sufficient*Bora GR. N Engl J Med. 2007;357:266-280There is no well-established upper level of normal vitamin Dlevels. Some laboratories use 50 ng/mL as an upper limit ofnormal. However, toxicity is patient-dependent and may occurat any level. Careful correlation with the patient'spresentation is necessary and, if there is concern forvitamin D toxicity, treatment should be consideredirrespective of the serum level.Care must be taken in interpreting Vitamin D results fromdifferent laboratories and methodologies. ??Published datademonstrated that results from patients undergoinghemodialysis may show a negative bias when tested withvarious automated 25-OH vitamin D assays when compared toLC- MS/MS.When testing samples from patients whose predominant form ofVitamin D is Vitamin D2, such as patients receiving VitaminD2 supplementation, results that are subtherapeutic shouldbe confirmed with another method such as LC-MS/MS. Blood 09/16/2024 11:2 7 AM EDT 09/16/2024 1:50 PM EDT us Jennie Dang MD LAB BLOOD ORDERABLES Fin al Result [facility] [address] [place] [phone] * TSH with Reflex to Free T4 (09/16/2024 11:27 AM EDT) TSH reflex Free T4 2.51 0.32 - 4.0 uIU/mL [facility] Blood 09/16/2024 11:2 7 AM EDT 09/16/2024 1:50 PM EDT us Jennie Dang MD LAB BLOOD ORDERABLES Fin al Result Performing Organization Address City/[facility]/ZIP Co de Phone Number [facility] [address] [place] [address] [phone] * Lipid Panel with Reflex to Direct LDL (09/16/2024 11:27 AM EDT) Triglycerides 100 <150 mg/dL [facility] Comment:Desirable Triglyceri de: less than 150 mg/dLBorderline High Triglyceride 150-199 mg/dLHigh Triglyceride: 200-499 mg/dLVery High Triglyceride: greater than or equal to 5OO mg/dL Cholesterol 128 <200 mg/dL [facility] Comment:Desirable Cholestero l: less than 200 mg/dLBorderline High Cholesterol: 200-239 mg/dLHigh Cholesterol: greater than 239 mg/dL LDL Cholesterol Calculated 67 <100 mg/dL [facility] Comment:Desirable LDL: less than 100 mg/dLNear Optimal/Above Optimal LDL: 110- 129 mg/dLBorderline High LDL: 130-159 mg/dLHigh LDL: 160-189 mg/dLVery High LDL: greater than or equal to 190 mg/dL HDL Cholesterol 41 >40 mg/dL [facility] Comment:Desirable HDL: great er than 40 mg/dL Note: This HDL assay may give artificially low results in patients with liver disease. Blood 09/16/2024 11:2 7 AM EDT 09/16/2024 1:50 PM EDT us Jennie Dang MD LAB BLOOD ORDERABLES Fin al Result Performing Organization Address City/[facility]/ZIP Co de Phone Number [facility] [address] [place] [address] [phone] * Potassium (09/16/2024 11:27 AM EDT) Potassium 4.2 3.3 - 5.1 mmol/L [facility] Blood Venous blood specimen / Unknown 09/16/2024 11:27 AM EDT 09/16/2024 1:50 PM EDT Jennie Dang MD LAB BLOOD ORDERABLES Fin al Result Performing Organization Address [facility] Co de Phone Number [facility] [address] [place] [phone] * Magnesium (09/16/2024 11:27 AM EDT) Only the most recent of2 resultswithin the time period is included. Magnesium 2.2 1.6 - 2.6 mg/dL [facility] Blood Venous blood specimen / Unknown 09/16/2024 11:27 AM EDT 09/16/2024 1:50 PM EDT us Jennie Dang MD LAB BLOOD ORDERABLES Fin al Result Performing Organization Address [facility] Phone Number [facility] [address] [place] [phone] * High Sensitivity Troponin I (09/12/2024 7:20 PM EST) Only the most recent of2 resultswithin the time period is included. TROPONIN I HIGH SENSITIVITY 3.9 <3.5 - 17.0 ng/L [facility] Comment:The Ledbetter high sens itivity Troponin-I results should beused in conjunction with other diagnostic information suchas ECG, clinical observations and information, and patientsymptoms to aid in the diagnosis of NH. 09/12/2024 7:20 PM EST 09/12/2024 7:30 PM EST Generic External Data Provider LAB BLOOD ORDERAB LES Final Result Performing Organization Address [facility] Co de Phone Number [facility] [address] [place] [phone] * CTA Chest PE Protocal (09/12/2024 6:52 PM EST) Anatomical Region Laterality Modality Body, Chest Computed Tomogra phy 09/12/2024 6:52 PM EST Narrative 09/12/2024 6:54 PM EST ? [facility] ?[address] ?[place] [address] ? CT Scan Report ? Signed ? Patient: Parham,Ingris ?MR#: [id number] ? : 1980 ?Acct:[id number] ? Age/Sex: 44 / F ?ADM Date: 09/12/24 ? Loc: HO.ED ? Attending Dr: ? Ordering Physician: Yana Moore ?? Date of Service: 09/12/24 ?? Procedure(s): CT angio chest PE protocol ?? Accession Number(s): [id number] ? cc: Jennie Dang MD; Yana Moore ? Report Number: ?? [id number]: Total DLP = ??273.00 mGy-cm ? CLINICAL [...] artifacts. Degenerative changes ?? include imaged spine. Bgrqgzxp-tp-kopuwp height loss of the T2 is old [...] by Isaias Sibley MD in OV> ? 09/12/243 ? DD/ 1852 ? TD/TT: 09/12/24 185 ? Truck Loader And Unloader: ? Procedure Note Donotuseinterpreter, Image - 09/12/[address] [place] [address] [address] Scan Report Signed Patient: Nic Parham#: [id number] : 1980Acct:[id number] Age/Sex: 44 / FADM Date: 09/12/24 Loc: HO.ED Attending Dr: Ordering Physician: Yana Moore Date of Service: 09/12/24 Procedure(s): CT angio chest PE protocol Accession Number(s): [id number] cc: Jennie Dang MD; Yana Moore Report Number: [id number]: Total DLP = 273.00 mGy-cm CLINICAL HISTORY: [...] motion artifacts. Degenerative changes include imaged spine. Xlqbvbwf-yy-ajdtrh height loss of the T2 is old [...] in OV> 09/12/241852 DD/ 51 TD/TT: 09/12/241851 Truck Loader And Unloader: [facility] External Provider IMG CT PROCEDURES Final Result * (ABNORMAL) CBC auto differential (09/12/2024 4:53 PM EST) White Blood Count 10.0 4.8 - 10.8 X10*3/uL [facility] Red Blood Count 4.60 4.20 - 5.50 X10*6/uL [facility] Hemoglobin 11.7(L) 12.0 - 16.0 g/dl [facility] Hematocrit 36.5(L) 37.0 - 47.0 % [facility] Mean Corpuscular Volume 79.3(L) 80.0 - 98.0 fL [facility] Mean Corpuscular Hemoglobin 25.4(L) 27.0 - 33.0 pg [facility] Mean Corpuscular HGB Conc 32.1 31.0 - 35.0 g/dl [facility] Red Cell Distribution Width 15.1 11.0 - 16.0 % [facility] Platelet Count 324 160 - 400 X10*3/uL [facility] Mean Platelet Volume 11.0 9.4 - 12.3 fL [facility] Neutrophils Percent Auto 71.6 45 - 73 % [facility] Imm Gran Pct Auto 0.4 0.0 - 0.4 % [facility] Lymphocytes Percent Auto 20.6 20 - 40 % [facility] Monocytes Percent Auto 6.4 2 - 11 % [facility] Eosinophils Percent Auto 0.6 0 - 4 % [facility] Basophils Percent Auto 0.4 0 - 2 % [facility] NRBC Pct Auto 0.0 0.0 - 0.2 /100WBC [facility] Neutrophils Absolute Auto 7.1 2.0 - 8.3 x10*3/uL [facility] Imm Gran Abs Auto 0.04(H) 0.00 - 0.03 X10*3/uL [facility] Lymphocytes Absolute Auto 2.1 1.2 - 4.9 X10*3/uL [facility] Monocytes Absolute Auto 0.6 0.1 - 1.2 X10*3/uL [facility] Eosinophils Absolute Auto 0.1 0.0 - 0.4 X10*3/uL [facility] Basophils Absolute Auto 0.0 0.0 - 0.2 X10*3/uL [facility] NRBC Abs Auto 0.000 0.0 - 0.012 X10*3/uL [facility] 09/12/2024 4:53 PM EST 09/12/2024 4:55 PM EST Generic External Data Provider LAB BLOOD ORDERAB LES Final Result Performing Organization Address [facility] Co de Phone Number [facility] [address] [place] [phone] * hCG, Total, Quantitative (09/12/2024 4:53 PM EST) HCG Quantitative <2 mIU/mL [facility] Comment:Weeks post LMP Appro ximate hCG(Last Menstrual Period) Range (mIU/ml)3 - 4 weeks 9 - 1304 - 5 weeks 75 - 2,6005 - 6 weeks 850 - 20,8006 - 7 weeks 4000 - 100,2007 - 12 weeks 11,500 - 289,51858 - 16 weeks 18,300 - 137,79746 - 29 weeks (2nd trimester) 1,400 - 53,80132 - 41 weeks (3rd trimester) 940 - [...] ORDERAB LES Final Result Performing Organization Address [facility] Co de Phone Number [facility] [address] [place] [phone] * Lipase (09/12/2024 4:53 PM EST) Lipase 20 8 - 78 U/L [facility] 09/12/2024 4:53 PM EST 09/12/2024 4:55 PM EST us Generic External Data Provider LAB BLOOD ORDERAB LES Final Result [facility] [address] [place] [address] [phone] * (ABNORMAL) Comprehensive Metabolic Panel (09/12/2024 4:53 PM EST) Sodium 140 135 - 145 mmol/L [facility] Potassium 3.1(L) 3.3 - 5.1 mmol/L [facility] Chloride 108 96 - 108 mmol/L [facility] Carbon Dioxide 24 22 - 29 mmol/L [facility] Anion Gap 11(L) 12 - 20 [facility] Urea Nitrogen (BUN) 13 9 - 16 mg/dL [facility] Creatinine, Serum 0.81 0.5 - 1.4 mg/dL [facility] Creatinine Clr Calc Pharmacy 114.4 [facility] Comment:Provided height and weight: 172.72 cm,108.6 kg.eGFR (calculated from the MDRD study equation) and eCrCl(calculated from the Cockcroft-Gault equation) are based ondifferent parameters and may not yield comparable results.If eCrCl result is absurd, please check patient'sheight/weight. Estimated Glomerular Filt Rate >60 [facility] Comment:Chronic Kidney Disea se: Estimated GFR < 60 mL/min/1.59b5Wepxcr Kidney Disease: Estimated GFR < 15 mL/min/1.73m2 Glucose 135(H) 60 - 115 mg/dL [facility] Calcium 9.5 8.4 - 10.2 mg/dL [facility] Bilirubin, Total 0.4 0.0 - 1.0 mg/dL [facility] Aspartate Amino Transferase 18 5 - 31 U/L [facility] Alanine Aminotransferase 10 0 - 31 U/L [facility] Total Protein 7.6 6.5 - 8.0 g/dL [facility] Albumin Level 4.1 3.5 - 5.0 g/dL [facility] Alkaline Phosphatase 66 39 - 117 U/L [facility] 09/12/2024 4:53 PM EST 09/12/2024 4:55 PM EST Generic External Data Provider LAB BLOOD ORDERAB LES Final Result [facility] [address] [place] [phone] * POCT , urine manually resulted (09/08/2024 4:04 PM EST) Preg Test, Ur Negative Negative, Indeterminate, None Detected, Invalid, Specimen unsatisfactory for evaluation, Weakly Positive QC Media Lot # [id number] Lot# Expiration Date [id number] Urine 09/08/2024 4:04 PM EST Dangelo Carpio CNM POINT OF CARE TEST ENTER/ EDIT ORDERABLES Final Result * HPV mRNA E6/E7 (08/05/2020 12:00 AM EST) Pathologist [facility] HPV nRNA E6/E7 Not Detected Not Detected [facility] Comment: Methodology: Transmission Systems Operator-Mediated Amplification This assay detects E6/E7 viral messenger RNA (mRNA) from 14 high-risk HPV types (16,18,31,33,35,39,45,51,52,56,58,59,66,68). ? The analytical performance characteristics of this assay have been determined by [employer]. The modifications have not been cleared or approved by the FDA. This assay has been validated pursuant to the CLIA regulations and is used for clinical purposes. ?? For additional information, please refer to http://education.Akadem[employer]/CHI720d7 (This link if provided for information/ educational purposes only.) 08/05/2020 Jennie Dang MD LAB BLOOD ORDERABLES Fin al Result Performing Organization Address [facility] Co de Phone Number [facility] [address] [place] [address], * Pap Smear (08/05/2020 12:00 AM EST) Swab Historical Provider LAB CYTOLOGY ORDERABLES F inal Result Performing Organization Address [facility] Co de Phone Number [facility] [address] [place] [address] [phone] * HEPATITIS C ANTIBODY RFLX (08/13/2019 2:30 PM EST) HEPATITIS C ANTIBODY [facility]IVE [facility] Comment: Antibodies to HCV not detected; does not exclude early acute HCV infection. 08/13/2019 2:30 PM EST Jennie Dang MD HISTORICAL/NON ORDERABLE LABS Final Result Performing Organization Address [facility] de Phone Number [facility] [address] [place] [address], * HIV AB/AG (08/13/2019 2:30 PM EST) HIV AG/AB NONREACTIVE NR [facility] ON LAB [...] detection of this assay. ?? The Ledbetter Fleece Tier HIV Ag/Ab Combo assay result and supplemental assay results should be interpreted in conjunction with the patient's clinical presentation, history and other laboratory results. ??If the results are inconsistent with clinical evidence, additional testing is suggested to confirm the result. 08/13/2019 2:30 PM EST Jennie Dang MD HISTORICAL/NON ORDERABLE LABS Final Result Performing Organization Address [facility] Co de Phone Number [facility] [address] from Last 3 Months or Most Recently Relevant to Health Maintenance Insurance * Guarantor: Ingris Parham Account Type Relation to Patient Date of Phone Billing Address Personal/Family Self [address] [place] Care Teams Flux Plant Operator Relationship Specialty Start Date End Date Jennie Dang MD [address] [place] [address] PCP - General Family Medicine 03/24/18
--- OUTSIDE RECORDS SUMMARY | 2024-10-22 11:30 | XMS_ITS | Clinical Summary ---
Author Organization [facility] ity Address [address] [place] [address] Care Team Providers Care Garbage Worker Name Role Phone Unavailable Primary Care Provider [...] Vaccine (2023-2 5 season) 2024 Influenza Vaccine (Season Ended) 2025 HIB Vaccines Aged Out No longer eligi [...] age to complete this topic Meningococcal B Vaccine Aged Out No l onger eligible based on patient's age to complete [...]
== END ==
LOC: HO.CARD 09:53
PROVIDERS: PCP Internal Medicine; Visit Provider Nurse Practitioner Family
DX: R00.2 Palpitations (principal); R07.89 Other chest pain; R94.31 Abnormal electrocardiogram [ECG] [EKG]
CPT/HCPCS: 93242; 93306

== ENCOUNTER → 2024-10-22 09:59 | Outpatient (BNV) | payer OTHER, SELFPAY | PROVIDERS: PCP Internal Medicine; Visit Provider Internal Medicine Cardiovascular Disease | DX: R07.89 Other chest pain (principal) | CPT/HCPCS: 93306 ==

== ENCOUNTER 2024-11-03 20:57 | Emergency (ER) | payer OTHER, SELFPAY ==
--- NOTE | 2024-11-03 | ECG_ITS ---
Test Reason : SOB Blood Pressure : */* mmHG Vent. Rate : 101 BPM Atrial Rate : 101 BPM P-R Int : 144 ms QRS Dur : 86 ms QT Int : 340 ms P-R-T Axes : 30 34 23 degrees QTcB Int : 440 ms Sinus tachycardia Possible Left atrial enlargement Borderline ECG When compared with ECG of 12-Sep-2024 16:35, Minimal criteria for Inferior infarct are no longer Present Nonspecific T wave abnormality no longer evident in Anterior leads Referred By: Generic ED Physician Electronically Signed By: Chris Cooney
--- NOTE | ~2024-11-03 | XR_ITS ---
CLINICAL HISTORY: sob 2 view chest x-ray Comparison: Chest x-ray from 03/28/2024 Findings: No consolidation, pneumothorax, or pleural effusion. Imaged mediastinum is unchanged No osseous change, in the [id number]-px-wfkq. IMPRESSION: No consolidation. This document has been electronically signed by: Isaias Sibley MD on 11/03/2024 21:54:39
[2024-11-03 21:09] VITALS: BP 142/84; PULSE 103; RESP 20; TEMP 37.7; O2SAT 97; BMI 39.9
[2024-11-03 21:44] LABS: MANUAL DIFF FLAG NO
[2024-11-03 21:45] LABS: Basophils Absolute Auto 0.1 X10*3/uL (0.0-0.2); Basophils Percent Auto 0.8 % (0-2); Eosinophils Absolute Auto 0.2 X10*3/uL (0.0-0.4); Eosinophils Percent Auto 1.6 % (0-4); Hematocrit 34.1 % (37.0-47.0); Hemoglobin 10.9 g/dl (12.0-16.0); Imm Gran Abs Auto 0.06 X10*3/uL (0.00-0.03); Imm Gran Pct Auto 0.7 % (0.0-0.4); Lymphocytes Absolute Auto 1.1 X10*3/uL (1.2-4.9); Mean Corpuscular Hemoglobin 25.2 pg (27.0-33.0); Mean Corpuscular Volume 78.8 fL (80.0-98.0); Monocytes Percent Auto 10.6 % (2-11); Neutrophils Absolute Auto 6.9 x10*3/uL (2.0-8.3); Neutrophils Percent Auto 74.3 % (45-73); Platelet Count 310 X10*3/uL (160-400); Red Blood Count 4.33 X10*6/uL (4.20-5.50); Red Cell Distribution Width 14.4 % (11.0-16.0); White Blood Count 9.2 X10*3/uL (4.8-10.8)
[2024-11-03 21:59] LABS: Alanine Aminotransferase 14 U/L (0-31); Alkaline Phosphatase 85 U/L (39-117); Anion Gap 12 (12-20); Aspartate Amino Transferase 16 U/L (5-31); Bilirubin Total 0.2 mg/dL (0.0-1.0); Blood Urea Nitrogen 14 mg/dL (9-16); Calcium 8.8 mg/dL (8.4-10.2); Carbon Dioxide 20 mmol/L (22-29); Chloride 109 mmol/L (96-108); Creatinine Clr Calc Pharmacy 103.6; Estimated Glomerular Filt Rate > 60; Glucose Random 118 mg/dL (60-115); Potassium 3.8 mmol/L (3.3-5.1); Sodium 137 mmol/L (135-145)
[2024-11-03 22:52] LABS: Influenza A PCR NEGATIVE (Negative); Influenza B PCR NEGATIVE (Negative); Resp Syncy Virus RNA Qual PCR NEGATIVE (Negative); SARS COV2 PCR INHOUSE POSITIVE (Negative)
[2024-11-03 23:24] VITALS: BP 136/86; PULSE 97; RESP 18; TEMP 37.4; O2SAT 97
--- NOTE | 2024-11-04 | ED_ITS ---
HPI - General Adult General Chief complaint: Upper Respiratory Symptoms Stated complaint: body aches/fever/hurts to take a deep breath Time Seen by Provider: 11/03/24 23:07 Source: patient Limitations: no limitations History of Present Illness ED Provider: Gillian Hilliard PA-C HPI narrative: 44-year-old female with a history of asthma presents with cough and cold symptoms x1 day. Associated generalized myalgias, fevers of 103 at home, dry cough, headache. No sick contacts with same symptoms. No GI symptoms. Related Data Home Medications ?Medication ?Instructions ?Recorded ?Confirmed norethindrone (contraceptive) 0.35 mg PO DAILY 09/28/24 09/28/24 mg tablet omeprazole 40 mg capsule,delayed 40 mg PO DAILY 09/28/24 09/28/24 release Previous Rx's ?Medication ?Instructions ?Recorded acetaminophen 500 mg tablet 500 mg PO Q6H PRN pain or fever 01/04/21 (Tylenol Extra Strength) #20 tabs hydroxyzine HCl 25 mg tablet 25 mg PO TID PRN anxiety #20 tabs 11/14/23 aspirin 81 mg tablet,delayed 81 mg PO DAILY #90 tabs 03/25/24 release Allergies Allergy/AdvReac Type Severity Reaction Status Date / Time NSAIDS (Non-Steroidal AdvReac Unknown Verified 11/03/24 21:13 Anti-Inflamma Review of Systems 2 Review of Systems: Yes all other systems are reviewed and are negative Constitutional: Constitutional: Reports fatigue, Reports fever(s) and Reports malaise Cardiovascular: Cardiovascular: Denies chest pain and Denies dyspnea Respiratory: Respiratory: Denies chest congestion, Reports cough, Denies dyspnea and Denies wheezing Gastrointestinal: Gastrointestinal: Denies diarrhea, Denies nausea and Denies vomiting Endocrine: Endocrine: Reports fatigue Allergic/Immunologic: Allergic/Immunologic: Denies wheezing PMFSH Past Medical History Attestation statement: The following information was validated with the patient. Medical History Pyelonephritis Kidney stone Anxiety PTSD (post-traumatic stress disorder) Surgical History Hx of one miscarriage Hx of nephrolithotomy with removal of calculi Family History Family History Father No problems noted. Mother No problems noted. Social History Social History Household Members: Family Alcohol intake: current Alcohol intake frequency: a few times a month Patient Tobacco Use Status: Never used Tobacco service: No Current occupational status: employed Physical Exam ED Vital Signs: Vital Signs - 24 hr 11/03/24 21:09 11/03/24 23:24 Temperature 100 F 99.3 F Pulse Rate 103 H 97 Respiratory Rate 20 18 Blood Pressure 142/84 H 136/86 Pulse Oximetry 97 97 Oxygen Delivery Method Room Air Room Air BMI result Body Mass Index 39.9 Const Other: Alert Orientation/consciousness: patient oriented x3 HENMT Other: Nasal congestion Resp Other: Lungs clear to auscultation, no wheezing Cardio Other: Normal peripheral perfusion Skin Other: Warm dry no rash Neuro General: patient oriented x3, gait normal, no focal motor deficits and CN's II- XI intact bilaterally Psych Other: Cooperative Medical Decision Making Medical Decision Making MDM Narrative: 44-year-old female with a history of asthma presents with cough and cold symptoms x1 day. Associated generalized myalgias, fevers of 103 at home, dry cough, headache. No sick contacts with same symptoms. No GI symptoms. Problem: Asthma History: Per patient I have considered the following differential diagnoses: Asthma exacerbation, bronchitis, pneumonia, viral syndrome Plan: Screening labs chest x-ray and a viral panel were obtained from triage, the patient has screen positive for COVID, the chest x-ray is clear. She is not hypoxic, she was not require steroid. She is also not wheezing, her asthma has not been exacerbated. I have independently reviewed the following tests: Labs: No overall leukocytosis, left shift noted, no electrolyte abnormalities, viral panel positive for COVID Chest x-ray:Findings: No consolidation, pneumothorax, or pleural effusion. Imaged mediastinum is unchanged No osseous change, in the [id number]. IMPRESSION: No consolidation. Lab Data 11/03/24 21:39 11/03/24 21:39 Labs: Lab Results 11/03/24 Range/Units 21:39 WBC 9.2 (4.8-10.8) X10*3/uL RBC 4.33 (4.20-5.50) X10*6/uL Hgb 10.9 L (12.0-16.0) g/dl Hct 34.1 L (37.0-47.0) % MCV 78.8 L (80.0-98.0) fL MCH 25.2 L (27.0-33.0) pg MCHC 32.0 (31.0-35.0) g/dl RDW 14.4 (11.0-16.0) % Plt Count 310 (160-400) X10*3/uL MPV 11.0 (9.4-12.3) fL Immature Gran % (Auto) 0.7 H (0.0-0.4) % Neut % (Auto) 74.3 H (45-73) % Lymph % (Auto) 12.0 L (20-40) % [place] % (Auto) 10.6 (2-11) % Eos % (Auto) 1.6 (0-4) % Baso % (Auto) 0.8 (0-2) % Lymph # (Auto) 1.1 L (1.2-4.9) X10*3/uL [place] # (Auto) 1.0 (0.1-1.2) X10*3/uL Eos # (Auto) 0.2 (0.0-0.4) X10*3/uL Baso # (Auto) 0.1 (0.0-0.2) X10*3/uL Abs Immat Gran (auto) 0.06 H (0.00-0.03) X10*3/uL Absolute Neuts (auto) 6.9 (2.0-8.3) x10*3/uL Absolute Nucleated RBC 0.000 (0.0-0.012) X10*3/uL Nucleated RBC % (auto) 0.0 (0.0-0.2) /100WBC Sodium 137 (135-145) mmol/L Potassium 3.8 (3.3-5.1) mmol/L Chloride 109 H (96-108) mmol/L Carbon Dioxide 20 L (22-29) mmol/L Anion Gap 12 (12-20) BUN 14 (9-16) mg/dL Creatinine 0.85 (0.5-1.4) mg/dL Estim Creat Clear Calc 103.6 Estimated GFR > 60 Random Glucose 118 H (60-115) mg/dL Calcium 8.8 D (8.4-10.2) mg/dL Total Bilirubin 0.2 (0.0-1.0) mg/dL AST 16 (5-31) U/L ALT 14 (0-31) U/L Alkaline Phosphatase 85 (39-117) U/L Total Protein 7.0 (6.5-8.0) g/dL Albumin 4.0 (3.5-5.0) g/dL Influenza Type A (PCR) NEGATIVE (Negative) Influenza Type B (PCR) NEGATIVE (Negative) RSV RNA Qual (PCR) NEGATIVE (Negative) SARS-CoV-2 RNA (RT-PCR) POSITIVE A (Negative) Discharge Plan Discharge Clinical Impression: COVID Patient Disposition: Home, Self-Care Instructions: COVID-19 (Coronavirus Disease 2019) (ED) Additional Instructions: You screened positive for COVID, the remainder of your labs were normal. The chest x-ray is clear. See home care instructions. You should self isolate for 5 days. Follow up with your primary care provider as needed. Prescriptions: No Action acetaminophen [Tylenol Extra Strength] 500 mg tablet 500 mg PO Q6H PRN (Reason: pain or fever) Qty: 20 0RF hydroxyzine HCl 25 mg tablet 25 mg PO TID PRN (Reason: anxiety) Qty: 20 0RF aspirin 81 mg Tablet,Delayed Release (Dr/Ec) 81 mg PO DAILY Qty: 90 4RF norethindrone (contraceptive) 0.35 mg tablet PO DAILY omeprazole 40 mg capsule,delayed release(DR/EC) 40 mg PO DAILY Print Language: Bruneian
[2024-11-04 00:28] VITALS: BP 0/0; PULSE 0; RESP 0; TEMP -17.7; TEMP 0; O2SAT 0
== END 2024-11-04 00:29 | disposition home or self-care (01) ==
PROVIDERS: Emergency Provider Emergency Medicine; PCP Internal Medicine
DX: U07.1 COVID-19 (principal); R50.9 Fever, unspecified
CPT/HCPCS: 0241U; 71046; 80053; 85025; 93005; 99283; 99284

== ENCOUNTER → 2024-11-03 21:15 | Outpatient (BNV) | payer OTHER, SELFPAY | PROVIDERS: PCP Internal Medicine; Visit Provider Radiology Neuroradiology | DX: R06.02 Shortness of breath (principal) | CPT/HCPCS: 71046 ==

== ENCOUNTER → 2024-11-03 21:33 | Outpatient (BNV) | payer OTHER, SELFPAY | PROVIDERS: Emergency Provider Emergency Medicine; PCP Internal Medicine; Visit Provider Internal Medicine Cardiovascular Disease | DX: R00.0 Tachycardia, unspecified (principal) | CPT/HCPCS: 93010 ==

== ENCOUNTER → 2024-12-18 10:21 | Outpatient (REF) | payer OTHER, SELFPAY ==
--- NOTE | 2024-12-18 10:25 | CA_ITS ---
Acquisition Time: 2024-12-18 10:33:40 Total Exercise Time: 00:05:03 Test Indications: CP Medications: Protocol: OMAR Max HR: 162 BPM 92% of Pred: 176 BPM Max BP: 166/66 mmHG Max Work Load: 7.0 METS Exercise stress test with exercise 5 mins 3 secs of Omar Protocol, acheiving 92% MPHR, with reports of feeling fatigued and SOB, requesting to stop, no chest pain, without any arrythmias, with normotensive response to exercise. Without EKG changes meeting criteria for ischemia. In recovery, breathing returned to baseline. Pt feeling back to baseline. Test reviewed with Dr. Morillo. Referred By: Adelaida Walden Electronically Signed By: Hossein Thomas
--- OUTSIDE RECORDS SUMMARY | 2024-12-18 11:19 | XMS_ITS | Clinical Summary ---
Author Organization [facility] ity Address [address] [place] [address] Care Team Providers Care Software Test Developer Name Role Phone Unavailable Primary Care Provider [...]
== END ==
LOC: HO.CARD 10:21
PROVIDERS: PCP Internal Medicine; Visit Provider Nurse Practitioner Family
DX: R07.89 Other chest pain (principal); R94.31 Abnormal electrocardiogram [ECG] [EKG]
CPT/HCPCS: 93017

== ENCOUNTER → 2024-12-18 10:25 | Outpatient (BNV) | payer OTHER, SELFPAY | PROVIDERS: PCP Internal Medicine | DX: R06.02 Shortness of breath (principal) | CPT/HCPCS: 93016; 93018 ==

== ENCOUNTER 2024-12-25 09:36 | Outpatient (AMB) | payer OTHER, SELFPAY ==
--- NOTE | 2024-12-25 09:44 | A.OFFVIS_ITS ---
Vital Signs 12/25/24 09:48 Height 5 ft 5 in Weight 231 lb 7.766 oz BMI 38.5 BP 120/80 Blood Pressure Location Lt brachial Position Sitting Pulse 88 Intake Visit Reasons: f/u after testing Intake Note: Follow-up after testing Allergies NSAIDS (Non-Steroidal Anti-Inflamma Adverse Reaction (Verified 11/03/24 21:13) Unknown Medication List - Last Reconciled 12/25/24 by SVETA Pereira acetaminophen (Tylenol Extra Strength) 500 mg PO Q6H PRN aspirin 81 mg PO DAILY hydroxyzine HCl 25 mg PO TID PRN norethindrone (contraceptive) mg PO DAILY omeprazole 40 mg PO DAILY HPI HPI f/u after testing: Details: Ignris is a 44 year female with PMH of antiphospholipid syndrome, lupus, anxiety who was recently seen in the [facility] for reports of chest discomfort and s hortness of breath. She ruled out for ACS and PE. Her EKG did show Q wave lead III and poor R wave progression. She was referred to cardiology and underwent a echocardiogram, exercise stress test and Holter monitor and now presents for follow-up. Today she reports that she had an episode of right-sided chest heaviness that went up her right neck when driving in her car earlier today. She says she finds that when she feels this if she takes a deep breath in holds it and does that again the symptom improves. She is not noticing heart palpitations with this chest heaviness. She has had symptoms in the evening as well. She has not had any some brought on by exertional activities. She does feel occasional brief rapid heart palpitations but they do not coincide with the chest heaviness. She feels that hormones may have something to do with this. 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 She has a family history of CAD with mother needing coronary stent age 59. She has no hypertension, hyperlipidemia or diabetes. [facility] Medical History Pyelonephritis Kidney stone Anxiety PTSD (post-traumatic stress disorder) Surgical History Hx of one miscarriage Hx of nephrolithotomy with removal of calculi Family History Father No problems noted. Mother No problems noted. Social History Household Members: Family Alcohol intake: current Alcohol intake frequency: a few times a month Patient Tobacco Use Status: Never used Tobacco service: No Current occupational status: employed Review of Systems Const All systems reviewed & are unremarkable except as noted in HPI and below Denies chills, Denies fatigue, Denies fever(s), Denies frequent falls, Denies weakness, Denies weight gain and Denies weight loss ENT Denies dizziness Card Denies chest pain, Reports chest pain at rest, Reports rapid heart rate, Denies leg edema, Denies lightheadedness, Denies palpitations, Denies dyspnea, Denies dyspnea on exertion, Denies orthopnea and Denies other (loss of consciousness) Resp Denies cough, Denies dyspnea and Denies dyspnea on exertion GI Denies hematochezia and Denies change in stool character Musc Denies abnormal gait, Denies muscle weakness, Denies numbness, Denies radiating pain into limb and Denies tingling Neuro Denies abnormal gait, Denies dizziness, Denies frequent falls, Denies numbness, Denies tingling and Denies weakness Endo Denies fatigue and Denies palpitations Physical Exam Vital Signs: Last Vital Signs Pulse 88 12/25/24 09:48 BP 120/80 12/25/24 09:48 BMI result Body Mass Index 38.5 Const General: cooperative, healthy appearing, comfortable and no acute distress Orientation/consciousness: patient oriented x3 Neck Neck: Yes normal visual inspection Resp Effort & Inspection: normal respiratory effort Auscultation: clear to auscultation bilaterally, no rales, no rhonchi and no wheezes Cardio Rate: regular rate Rhythm: regular rhythm Heart sounds: S1 normal heart sound present, S2 normal heart sound present, no murmurs and no rubs Neuro General: patient oriented x3 Extrem General: Yes normal to inspection, No no pedal edema and No calf tenderness Psych Appearance: grossly normal Mental Status: mental status grossly normal Speech and movement: Normal speech and movement present Assessment & Plan Assessment & Plan (1) Chest discomfort: Code(s): R07.89 - Other chest pain Category: Medical Plan: Reports of intermittent chest tightness/heaviness with shortness of breath occurring randomly, mostly at rest. Cardiac risks family history, obesity. ER evaluations without acute findings. Her EKG did show, Q-wave lead 3 and poor R- wave progression. She had echocardiogram on 10/22/2024 which was a normal study. An exercise stress test on 12/18/2024 showed no chest discomfort, no arrhythmia, no EKG changes of ischemia. Test results reviewed with her. Not likely to be having true angina. Signs and symptoms of angina discussed with her. She already takes aspirin 81 mg daily which she can continue. Cardiology follow-up as needed for symptoms. (2) Palpitations: Code(s): R00.2 - Palpitations Category: Medical Plan: Reports of brief rapid heart palpitations which sounded like short runs of atrial tachycardia or extrasystoles. Holter monitor done 10/22/2024 for 3 days showing sinus rhythm with average heart rate 74 beats per minute, rare PACs, no SVT. Reviewed findings with her. Discussed reduction in caffeinated beverages, maintaining good hydration, getting adequate rest and exercise as tolerated. Emergency care if ever needed for sustained rapid palpitations. (3) Abnormal EKG: Code(s): R94.31 - Abnormal electrocardiogram [ECG] [EKG] Category: Medical Plan: As above Plan I discussed with the patient that her symptoms of chest discomfort and shortness of breath are not likely cardiac in origin, given the normal test results. We reviewed the possibility of hormonal or anxiety-related causes and the importance of monitoring for exertional symptoms. I advised on lifestyle modifications, including increased physical activity, and discussed potential triggers such as caffeine and stress. Follow-up is as needed, with instructions to return if symptoms change or worsen. Patient Instructions: - Monitor chest discomfort and shortness of breath, especially with exertion. - Note any changes in palpitations, particularly if heart rates are irregular or sustained rapid. - Increase physical activity to help manage stress and palpitations. - Avoid caffeine and manage stress; consider hormonal influences. - Follow up as needed, return if symptoms worsen or change. Patient was informed and verbally consented to the use of an ambient scribe for clinic note documentation during this visit. Visit time spent on chart review, interview, assessment, orders, documentation. Coding Level of Care Code Est Pt Level 3 (83097) Complex EM visit Add On G2211 Diagnoses Chest discomfort R07.89 Palpitations R00.2 Abnormal EKG R94.31 Time Spent (min) 24
[2024-12-25 09:48] VITALS: BP 120/80; PULSE 88; BMI 38.5
--- OUTSIDE RECORDS SUMMARY | 2024-12-25 09:49 | XMS_ITS | Clinical Summary ---
Author Organization [facility] ity Address [address] [place] [address] Care Team Providers Care Home Organizer Name Role Phone Unavailable Primary Care Provider [...]
== END 2024-12-25 10:24 | disposition home or self-care (01) ==
LOC: HO.HCS 09:36
PROVIDERS: PCP Internal Medicine; Visit Provider Nurse Practitioner Family
DX: R07.89 Other chest pain (principal); R00.2 Palpitations; R94.31 Abnormal electrocardiogram [ECG] [EKG]
CPT/HCPCS: 99213

== ENCOUNTER → 2024-12-25 09:36 | Outpatient (BNVA) | payer OTHER, SELFPAY | PROVIDERS: PCP Internal Medicine; Visit Provider Nurse Practitioner Family ==

== ENCOUNTER 2025-03-24 15:03 | Emergency (ER) | payer OTHER, SELFPAY ==
--- NOTE | ~2025-03-24 | CT_ITS ---
EXAMINATION: CT HEAD WITHOUT CONTRAST CLINICAL INFORMATION: Headache, now resolved double vision COMPARISON: None available. TECHNIQUE: Contiguous axial imaging was performed from the skull base to vertex without intravenous administration of contrast. This CT examination was performed using dose optimization techniques as appropriate, variously including the following: *Automated exposure control *Adjustment of mA and/or kV according to patient size (this includes techniques or standardized protocols for targeted exams where dose is matched to indication/reason for exam; i.e. extremities or head) *Use of iterative reconstruction technique DLP: 639 mGY*cm FINDINGS: There is no acute ischemic change. There is no intracranial hemorrhage. There is no mass-effect or midline shift. Basal cisterns and ventricles are within normal limits for age/cerebral volume. Orbits are symmetrical and unremarkable. There is opacification of the anterior ethmoid air cells and frontal sinus on the left. There are no bony abnormalities. CT/CT head/brain wo IV con IMPRESSION: No acute intracranial abnormality. Fronto-ethmoidal sinusitis on the left. Electronically signed by: Alex Amin MD 03/24/2025 04:51 PM EDT
[2025-03-24 15:19] VITALS: BP 155/94; PULSE 116; RESP 16; TEMP 37.1; O2SAT 97; BMI 43.1
--- NOTE | 2025-03-24 15:25 | ECG_ITS ---
Test Reason : HEADACHE Blood Pressure : */* mmHG Vent. Rate : 102 BPM Atrial Rate : 102 BPM P-R Int : 160 ms QRS Dur : 80 ms QT Int : 348 ms P-R-T Axes : 28 23 7 degrees QTcB Int : 453 ms Sinus tachycardia Possible Left atrial enlargement Borderline ECG When compared with ECG of 03-Nov-2024 21:33, No significant change was found Referred By: Alin Gr Electronically Signed By: RADHA GUTIERREZ
--- NOTE | 2025-03-24 15:27 | ED.GENADULT ---
[facility] - General Adult General Chief complaint: Headache Stated complaint: Headache, double vision, facial numbness Time Seen by Provider: 03/24/25 16:14 Source: patient Mode of arrival: ambulatory History of Present Illness ED Provider: Garfield WALTERS narrative: 44-year-old female with known underlying lupus anticoagulant, currently on daily aspirin, reports that she had some left suboccipital pain, laid down to relax and fell asleep with her head turned to the right and then when she woke up states that she had double vision but is unable to recall if it was vertical or horizontal in nature but she does report that when she covered up 1 eye it resolved, she then became more concerned stating that she then developed pain/numbness/tingling down into her left upper extremity, this has since resolved but she reports that she is now having pain at the right suboccipital location, she denies any recent trauma she denies any associated fever, chills, denies any midline neck pain denies any sore throat and at this time is overall asymptomatic with the exception of some right suboccipital pain. Related Data Home Medications ?Medication ?Instructions ?Recorded ?Confirmed norethindrone (contraceptive) 0.35 mg PO DAILY 09/28/24 12/25/24 mg tablet omeprazole 40 mg capsule,delayed 40 mg PO DAILY 09/28/24 12/25/24 release Previous Rx's ?Medication ?Instructions ?Recorded acetaminophen 500 mg tablet 500 mg PO Q6H PRN pain or fever 01/04/21 (Tylenol Extra Strength) #20 tabs hydroxyzine HCl 25 mg tablet 25 mg PO TID PRN anxiety #20 tabs 11/14/23 aspirin 81 mg tablet,delayed 81 mg PO DAILY #90 tabs 03/25/24 release Allergies Allergy/AdvReac Type Severity Reaction Status Date / Time NSAIDS (Non-Steroidal AdvReac Unknown Verified 03/24/25 15:19 Anti-Inflamma Review of Systems Review of Systems: Pertinent positives and negatives as stated in HPI [facility] Past Medical History Source: nursing notes reviewed Medical History Pyelonephritis Kidney stone Anxiety PTSD (post-traumatic stress disorder) Surgical History Hx of one miscarriage Hx of nephrolithotomy with removal of calculi Family History Family History Father No problems noted. Mother No problems noted. Social History Social History Household Members: Family Alcohol intake: current Alcohol intake frequency: a few times a month Patient Tobacco Use Status: Never used Tobacco Advance Directives: No Advance Directives Information Provided: No Do you have a plan to hurt others: No Plan service: No Current occupational status: employed Physical Exam ED Exam Exam: VITAL SIGNS: Reviewed. GENERAL: Well developed, well nourished, in no acute distress. HEAD: Normocephalic/atraumatic EYES: PERRLA, EOMI, no nystagmus, no gaze palsy EARS: Ext canals without abnormality NOSE: Nares patent bilateral OROPHARYNX: no oral lesions noted, posterior pharynx clear NECK: Supple, no adenopathy LUNGS: Normal breath sounds. No adventitious sounds or accessory muscle use. CARDIOVASCULAR: Regular rate and rhythm without noted murmurs ABDOMEN: Soft, non-tender, non-distended with bowel sounds. MUSCULOSKELETAL: No tenderness, deformities, or effusions noted on gross inspection. EXTREMITIES: No cyanosis, clubbing or edema. SKIN: Inspection of the skin reveals no rashes NEUROLOGIC: Alert and oriented x 4. Strength and sensation to light touch were grossly intact x 4, no facial asymmetry, no pronator drift, cranial nerves 2-12 are grossly intact. Vital Signs: Vital Signs - 24 hr 03/24/25 15:19 03/24/25 16:32 03/24/25 17:52 Temperature 98.7 F 98.3 F Pulse Rate 116 H 89 82 Respiratory Rate 16 16 18 Blood Pressure 155/94 H 133/75 123/78 Pulse Oximetry 97 99 98 Oxygen Delivery Method Room Air Room Air Room Air 03/24/25 18:19 Temperature 98.3 F Pulse Rate 82 Respiratory Rate 18 Blood Pressure 123/78 Pulse Oximetry 98 Oxygen Delivery Method Room Air BMI result Body Mass Index 43.1 NIH Stroke Scale Internal: Initial- Upon Arrival Level of Consciousness: Alert Level of Consciousness Questions: Answers both questions correctly Level of Consciousness Commands: Performs both tasks correctly Best Gaze: Normal Visual: No visual loss Facial Palsy: Normal Motor Arm (Right): No drift Motor Arm (Left): No drift Motor Leg (Right): No drift Motor Leg (Left): No drift Limb Ataxia: Absent Sensory: Normal Best Language: No aphasia Dysarthia: Normal Extinction and Inattention: No abnormality Score: 0 Course Course Course Narrative: RME: 44-year-old female history of lupus presents to ED for headache and resolved double vision and resolved left facial numbness. Presently NIH score is 0. Patient woke up around 2 turning with double vision and some numbness that resolved. Patient denies any dizziness nausea vomiting chest pain or shortness of breath. Labs EKG head CT scan ordered. Patient is brought back to the ED immediately Medical Decision Making Medical Decision Making MDM Narrative: 44-year-old female with history and clinical presentation, DX: Do not think that this is an acute stroke, there are no focal findings, it is understood that patient had a brief episode of double vision, suspect that this is a combination of muscle spasm/anxiety, however will proceed with basic lab work, there are no focal neurologic symptoms. EKG is interpreted by me: Sinus rhythm, HR I 0 2, no STEMI, MS/QRS/QTC/QT is otherwise within normal limits. So there are no significant changes when compared to prior from 10/2024. 1742: I reviewed and interpreted all investigations and there is no leukocytosis, there is a chronically stable microcytic anemia and no thrombocytopenia. There is a noted lymphocytosis of unclear significance. Coagulation studies are stable when compared to prior. There is no RUDDY/electrolyte or liver enzyme derangements. High sensitivity troponin is undetectable. Beta HCG is undetectable. Viral testing is negative for COVID-19/flu. My interpretation is in agreement with radiology's impression of the noncontrast head CT and that there are no acute abnormalities noted. 1743: On re-evaluation patient continues to be asymptomatic, CT scan did demonstrate some noted sinusitis on the left which may be contributing to some of patient's symptoms. Patient otherwise appears well and nontoxic and all results and findings were discussed with her at bedside. She was given strict return precautions. Differential Diagnosis Differential Diagnoses: The differential diagnosis associated with the presentation includes see above Admission/Observation Consideration of admission/observation: Escalation of care including admission/observation considered see above Lab Data MDM Lab Attestation statement: I reviewed the patient's lab results. see above 03/24/25 15:52 03/24/25 15:52 Labs: Lab Results 03/24/25 03/24/25 Range/Units 15:52 16:40 WBC 10.0 (4.8-10.8) X10*3/uL RBC 4.47 (4.20-5.50) X10*6/uL Hgb 11.0 L (12.0-16.0) g/dl Hct 34.1 L (37.0-47.0) % MCV 76.3 L (80.0-98.0) fL MCH 24.6 L (27.0-33.0) pg MCHC 32.3 (31.0-35.0) g/dl RDW 15.5 (11.0-16.0) % Plt Count 358 (160-400) X10*3/uL MPV 10.9 (9.4-12.3) fL Immature Gran % (Auto) 0.4 (0.0-0.4) % Neut % (Auto) 72.0 (45-73) % Lymph % (Auto) 17.8 L (20-40) % [place] % (Auto) 7.6 (2-11) % Eos % (Auto) 1.7 (0-4) % Baso % (Auto) 0.5 (0-2) % Lymph # (Auto) 1.8 (1.2-4.9) X10*3/uL [place] # (Auto) 0.8 (0.1-1.2) X10*3/uL Eos # (Auto) 0.2 (0.0-0.4) X10*3/uL Baso # (Auto) 0.1 (0.0-0.2) X10*3/uL Abs Immat Gran (auto) 0.04 H (0.00-0.03) X10*3/uL Absolute Neuts (auto) 7.2 (2.0-8.3) x10*3/uL Absolute Nucleated RBC 0.000 (0.0-0.012) X10*3/uL Nucleated RBC % (auto) 0.0 (0.0-0.2) /100WBC PT 10.6 L (10.9-12.4) SEC INR 0.9 (0.9-1.1) APTT 58.3 H (26.7-34.1) SEC Sodium 141 (135-145) mmol/L Potassium 3.9 (3.3-5.1) mmol/L Chloride 111 H (96-108) mmol/L Carbon Dioxide 23 (22-29) mmol/L Anion Gap 11 L (12-20) BUN 14 (9-16) mg/dL Creatinine 0.88 (0.5-1.4) mg/dL Estim Creat Clear Calc 104.5 Estimated GFR > 60 Random Glucose 111 (60-115) mg/dL Calcium 8.8 (8.4-10.2) mg/dL Total Bilirubin 0.3 (0.0-1.0) mg/dL AST 25 (5-31) U/L ALT 17 (0-31) U/L Alkaline Phosphatase 85 (39-117) U/L Troponin I High Sens < 2.7 (<3.5-17.0) ng/L Total Protein 7.3 (6.5-8.0) g/dL Albumin 4.2 (3.5-5.0) g/dL Beta HCG, Quant < 2 mIU/mL COVID-19 (MONIKA) Negative (Negative) COVID-19 Clin Com See Note Influenza Type A (BECK) Negative (Negative) Influenza Type B (BECK) Negative (Negative) Influenza A & B Note See Note Independent Interpretation I performed an independent interpretation of an: CT Scan Interpretation: see above Radiology Impression Discussion of test interpretation with radiology: I have reviewed the radiologist's reading. Radiologist Impression: see above External Record Review External record reviewed: Prior outpatient labs and Prior outpatient radiology Chronic Conditions Patient?s care impacted by: Other Lupus anticoagulant Discharge Plan Discharge Clinical Impression: Muscle spasm, Anxiety, Visual disturbance, Sinusitis Patient Disposition: Home, Self-Care Instructions: Sinusitis (ED), Muscle Spasm (ED) Additional Instructions: All results and findings were discussed with you at bedside. Current recommendation is to discuss referral to ENT for the extensive chronic sinusitis that is present on the left side. Otherwise, recommend [id number] Voltaren as well as 1000 mg of Tylenol every 6 hours as needed for any additional pain relief for control. If he should experience any acute worsening of your symptoms or additional features do not hesitate to return to the emergency room. Prescriptions: No Action acetaminophen [Tylenol Extra Strength] 500 mg tablet 500 mg PO Q6H PRN (Reason: pain or fever) Qty: 20 0RF hydroxyzine HCl 25 mg tablet 25 mg PO TID PRN (Reason: anxiety) Qty: 20 0RF aspirin 81 mg Tablet,Delayed Release (Dr/Ec) 81 mg PO DAILY Qty: 90 4RF norethindrone (contraceptive) 0.35 mg tablet PO DAILY omeprazole 40 mg capsule,delayed release(DR/EC) 40 mg PO DAILY Referrals: Jennie Dang MD [Primary Care Provider, Internal Medicine] Norman Meier [Physician, Ear, Nose, Throat] Interventions: ED Discharge Assessment Last Done: 03/24/25 18:19 Discharge Date/Time: 03/24/25 18:20 Print Language: Frisian
[2025-03-24 15:59] LABS: MANUAL DIFF FLAG NO
[2025-03-24 16:02] LABS: Hematocrit 34.1 % (37.0-47.0); Hemoglobin 11.0 g/dl (12.0-16.0); Imm Gran Abs Auto 0.04 X10*3/uL (0.00-0.03); Imm Gran Pct Auto 0.4 % (0.0-0.4); Lymphocytes Absolute Auto 1.8 X10*3/uL (1.2-4.9); Mean Corpuscular HGB Conc 32.3 g/dl (31.0-35.0); Mean Corpuscular Hemoglobin 24.6 pg (27.0-33.0); Mean Corpuscular Volume 76.3 fL (80.0-98.0); NRBC Abs Auto 0.000 X10*3/uL (0.0-0.012); NRBC Pct Auto 0.0 /100WBC (0.0-0.2); Platelet Count 358 X10*3/uL (160-400); Red Blood Count 4.47 X10*6/uL (4.20-5.50); White Blood Count 10.0 X10*3/uL (4.8-10.8)
[2025-03-24 16:21] LABS: Alanine Aminotransferase 17 U/L (0-31); Albumin Level 4.2 g/dL (3.5-5.0); Alkaline Phosphatase 85 U/L (39-117); Anion Gap 11 (12-20); Aspartate Amino Transferase 25 U/L (5-31); Blood Urea Nitrogen 14 mg/dL (9-16); Calcium 8.8 mg/dL (8.4-10.2); Carbon Dioxide 23 mmol/L (22-29); Chloride 111 mmol/L (96-108); Creatinine Clr Calc Pharmacy 104.5; Estimated Glomerular Filt Rate > 60; Potassium 3.9 mmol/L (3.3-5.1); Sodium 141 mmol/L (135-145); Total Protein 7.3 g/dL (6.5-8.0)
[2025-03-24 16:28] LABS: Troponin-I High Sensitivity < 2.7 ng/L (<3.5-17.0)
[2025-03-24 16:32] VITALS: BP 133/75; PULSE 89; RESP 16; O2SAT 99
[2025-03-24 16:33] LABS: COVID-19 Test Negative (Negative); IDNOW Serial# 55D5AD1C
[2025-03-24 16:34] LABS: IDNOW Serial# 08D9AD1C; Influenza B2 Negative (Negative)
[2025-03-24 17:12] LABS: INTERNATIONAL NORM RATIO 0.9 (0.9-1.1); Partial Thromboplastin Time 58.3 SEC (26.7-34.1); Prothrombin Time 10.6 SEC (10.9-12.4)
[2025-03-24 17:52] VITALS: BP 123/78; PULSE 82; RESP 18; TEMP 36.8; O2SAT 98
[2025-03-24 18:19] VITALS: BP 123/78; PULSE 82; RESP 18; TEMP 36.8; O2SAT 98
--- OUTSIDE RECORDS SUMMARY | 2025-03-24 19:11 | XMS_ITS | Encounter Summary ---
Author Organization [employer] Address [address] [place] [address] Care Team Providers Care Hammerer Helper Name Role Phone Jennie Dang MD Primary Care Provider + Encounter Details Date Type Department Care Team (Late st Contact Info) Description 06/29/2022 Abstract [facility] [address], [place] [phone] Jennie Dang MD [address] [place], [place] [phone] Social History Tobacco Use Types Packs/Day Years [...] AM EST documented as of this encounter Functional Status * Over the past 2 weeks, how often have you been bothered by any of the following problems? Question Answer Date of Assessment Author Little interest or pleasure in doing things Several days 06/29/2022 11:27 AM Rita Gallardo MA Feeling down, depressed, or hopeless Several days 06/29/2022 11:27 AM Ness Gallardo MA Patient Health Questionnaire-2 Score 2 06/29/2022 11:27 AM Martha Gallardo MA * If you checked off any problems on this questionnaire so far, Question Answer Date of Assessment Author How difficult have these problems made it for you to do your work, take care of things at home, or get along with other people? Somewhat difficult 06/29/2022 11:27 AM Rita Gallardo MA * Over the past 2 weeks, how often have you been bothered by any of the following problems? Question Answer Date of Assessment Author Trouble falling or staying asleep, or sleeping too much Several days 06/29/2022 11:27 AM Rita Hernandez MA Feeling tired or having little energy Several days 06/29/2022 11:27 AM Rita Gallardo MA Poor appetite or overeating Several days 06/29/2022 11 :27 AM Rita Gallardo MA Feeling bad about yourself - or that you are a failure or have let yourself or your family down Not at all 06/29/2022 11:27 AM Rita Gallardo MA Trouble concentrating on things, such as reading the newspaper or watching television Several days 06/29/2022 11:27 AM Rita Gallardo MA Moving or speaking so slowly that other people could have noticed? Or the opposite - being so fidgety or restless that you have been moving around a lot more than usual. Not at all 06/29/2022 11:27 AM Rita Gallardo MA Thoughts that you would be better off or hurting yourself in some way Not at all 06/29/2022 11:27 AM Rita Gallardo MA Patient Health Questionnaire-9 Score 6 06/29/2022 11:27 AM Rita Gallardo MA documented as of this encounter Plan of Treatment Upcoming Encounters Date Type Department Care Team (Late st Contact Info) Description 05/27/2025 11:15 AM EST Office Visit [facility] [address] [place] [address] Jennie Dang MD [address] [place] [phone] documented as of this encounter Visit Diagnoses Not on filedocumented in this encounter Additional Health Concerns Assessment Noted Time PHQ-9 Depression Total Score: 6 06/29/20 22 11:27 AM EST documented as of this encounter Care Teams Hammerer Helper Relationship Specialty Start Date End Date Jennie Dang MD [address] [place] [id number] PCP - General Family Medicine 03/24/18 documented as of this encounter
--- OUTSIDE RECORDS SUMMARY | 2025-03-24 19:11 | XMS_ITS | Clinical Summary ---
Author Organization [facility] ity Address [address] [place] [address] Care Team Providers Care Encoding Machine Operator Name Role Phone Unavailable Primary Care Provider [...] Cervical Cancer Screening: P ap Smear 2001 Depression Screening 07/08/2024 COVID-19 Vaccine ( - 2023-2 5 season) 2025 Influenza Vaccine (#1) 2025 HIB Vaccines Aged Out No longer [...] 5 Years) and At-Risk Patients (6 to 49 Years) Aged Out No longer eligible b ased on patient's age to complete this topic RSV Immunization Patients Un rebel 20 months Aged Out No longer eligible b ased on patient's age to complete this topic Varicella Vaccines Aged Out No longer eligible based on patient's age to complete this topic
--- OUTSIDE RECORDS SUMMARY | 2025-03-24 19:11 | XMS_ITS | Encounter Summary ---
Author Organization [employer] Address [address] [place] [address] Care Team Providers Care Veterans' Coordinator Name Role Phone Jennie Dang MD Primary Care Provider + Encounter Details Date Type Department Care Team (Late st Contact Info) Description 03/24/2025 Orders Only GENERIC EXTERNAL DATA DEPARTMENT Provider, [...] Access Answer Date Recorded Internet Access Q1 Yes 12/01/2024 Internet Access Q2 I do not want or need it 11/06 Comments No Sex and Gender Information Value [...] Description 05/27/2025 11:15 AM EST Office Visit [facility] [address] [place], [place] [phone] Jennie Dang MD [address] [place], [place] [phone] documented as of this encounter Procedures Procedure Name Priority Date/Time Associated Diagnosis Comments APTT Routine 03/24/2025 4:40 PM EDT PROTHROMBIN TIME-INR Routine 03/24/2025 4:40 PM EDT HCG, TOTAL, QN Routine 03/24/2025 4:[address] HEAD WO CONTRAST Routine 03/24/2025 4 :28 PM EDT INFLUENZA A B2 ID NOW (ARREDONDO) Routine 03/24/2025 3:52 PM EDT COVID-19 ID NOW (ARREDONDO) Routine 03/24/2025 3:52 PM EDT HIGH SENSITIVITY TROPONIN I Routine 03/24/2025 3:52 PM EDT CBC WITH AUTO DIFFERENTIAL Routine 03/24/2025 3:52 PM EDT COMPREHENSIVE METABOLIC PANEL Routine 03/24/2025 3:52 PM EDT documented in this encounter Results * (ABNORMAL) Partial Thromboplastin Time, Activated (APTT) (03/24/2025 4:40 PM EDT) Partial Thromboplastin Time 58.3(H) 26.7 - 34.1 [facility] 03/24/2025 4:40 PM EDT 03/24/2025 4:43 PM EDT Generic External Data Provider LAB BLOOD ORDERAB LES Final Result Performing Organization Address [facility] Co de Phone Number [facility] [address] [place] [address] [phone] * (ABNORMAL) Prothrombin Time-INR (03/24/2025 4:40 PM EDT) [facility] Prothrombin Time 10.6(L) 10.9 - 12.4 [facility] INTERNATIONAL NORM RATIO 0.9 0.9 - 1.1 [facility] Comment:INTERNATIONAL NORMAL IZED RATIO (INR) REFERENCE RANGES Reference RangeFor patients not on anticoagulant therapy: 0.9 - 1.1INR ranges for oral anticoagulanttherapy:For prevention and treatment of venous thrombosis and pulmonary embolism: 2.0 - 3.0For acute myocardial infarction with aspirin therapy: 2.0 - 3.0For acute myocardial infarction without aspirin therapy: 3.0 - 4.0For patients with mechanical prosthetic heart valves: 2.5 - 3.5 03/24/2025 4:40 PM EDT 03/24/2025 4:43 PM EDT Generic External Data Provider LAB BLOOD ORDERAB LES Final Result Performing Organization Address [facility] Co de Phone Number [facility] [address] [place] [address] [phone] * hCG, Total, Quantitative (03/24/2025 4:40 PM EDT) Pathologist [facility] HCG Quantitative <2 mIU/mL [facility] Comment:Weeks post LMP Appro ximate hCG(Last Menstrual Period) Range (mIU/ml)3 - 4 weeks 9 - 1304 - 5 weeks 75 - 2,6005 - 6 weeks 850 - 20,8006 - 7 weeks 4000 - 100,2007 - 12 weeks 11,500 - 289,39386 - 16 weeks 18,300 - 137,95149 - 29 weeks (2nd trimester) 1,400 - 53,20217 - 41 weeks (3rd trimester) 940 - 60,000The Arredondo B- hCG assay is used for the early detection ofpregnancy; it cannot be used to diagnose any conditionunrelated to . If a B-hCG level is not supportedby the clinical evidence, results should be confirmed by analternative method (qualitative urine hCG, for example). 03/24/2025 4:40 PM EDT 03/24/2025 4:43 PM EDT us Generic External Data Provider LAB BLOOD ORDERAB LES Final Result Performing Organization Address City/State/[facility] Co de Phone Number [facility] [address] [place] [phone] * CT Head w/o Contrast (03/24/2025 4:28 PM EDT) Anatomical Region Laterality Modality Head, Neck Computed Tomogra phy 03/24/2025 4:28 PM EDT Narrative 03/24/2025 4:54 PM EDT [address] [address] [address] Scan Report Signed Patient: Ingris Parham MR#: [id number] : 1980 Acct:[id number] Age/Sex: 44 / F ADM Date: 03/24/25 Loc: HO.ED Attending Dr: Ordering Physician: Alin Gr Date of Service: 03/24/25 Procedure(s): CT head/brain wo IV con Accession Number(s): [id number] cc: Alin Gr; Jennie Dang MD Report Number: [id number]: Total DLP = 639.00 mGy-cm Reason for Exam: headache. resolved double vision EXAMINATION: CT HEAD WITHOUT CONTRAST CLINICAL INFORMATION: Headache, now resolved double vision COMPARISON: None available. TECHNIQUE: Contiguous axial imaging was performed from the skull base to vertex without intravenous administration of contrast. This CT examination was performed using dose optimization techniques as appropriate, variously including the following: *Automated exposure control *Adjustment of mA and/or kV according to patient size (this includes techniques or standardized protocols for targeted exams where dose is matched to indication/reason for exam; i.e. extremities or head) *Use of iterative reconstruction technique DLP: 639 mGY*cm FINDINGS: There is no acute ischemic change. There is no intracranial hemorrhage. There is no mass-effect or midline shift. Basal cisterns and ventricles are within normal limits for age/cerebral volume. Orbits are symmetrical and unremarkable. There is opacification of the anterior ethmoid air cells and frontal sinus on the left. There are no bony abnormalities. CT/CT head/brain wo IV con IMPRESSION: No acute intracranial abnormality. Fronto-ethmoidal sinusitis on the left. Electronically signed by: Alex Amin MD 03/24/2025 04:51 PM EDT RP Dictated By: Alex Amin MD Signed By: <Electronically signed by Alex Amin MD in OV> 03/24/25 1651 DD/ 1628 TD/TT: 03/24/25 1635 Felt Hat Flanging Operator: Procedure Note Donotuseinterpreter, Image - 03/24/[address] [place] [address] [address] Scan Report Signed Patient: Nic Parham#: [id number] : 1980Acct:[id number] Age/Sex: 44 / FADM Date: 03/24/25 Loc: HO.ED Attending Dr: Ordering Physician: Alin Gr Date of Service: 03/24/25 Procedure(s): CT head/brain wo IV con Accession Number(s): [id number] cc: Alin Gr; Jennie Dang MD Report Number: [id number]: Total DLP = 639.00 mGy-cm Reason for Exam: headache. resolved double vision EXAMINATION: CT HEAD WITHOUT CONTRAST CLINICAL INFORMATION: Headache, now resolved double vision COMPARISON: None available. TECHNIQUE: Contiguous axial imaging was performed from the skull base to vertex without intravenous administration of contrast. This CT examination was performed using dose optimization techniques as appropriate, variously including the following: *Automated exposure control *Adjustment of mA and/or kV according to patient size (this includes techniques or standardized protocols for targeted exams where dose is matched to indication/reason for exam; i.e. extremities or head) *Use of iterative reconstruction technique DLP: 639 mGY*cm FINDINGS: There is no acute ischemic change. There is no intracranial hemorrhage. There is no mass-effect or midline shift. Basal cisterns and ventricles are within normal limits for age/cerebral volume. Orbits are symmetrical and unremarkable. There is opacification of the anterior ethmoid air cells and frontal sinus on the left. There are no bony abnormalities. CT/CT head/brain wo IV con IMPRESSION: No acute intracranial abnormality. Fronto-ethmoidal sinusitis on the left. Electronically signed by: Alex Amin MD 03/24/2025 04:51 PM EDT RP Dictated By: Alex Amin MD Signed By: <Electronically signed by Alex Amin MD in OV> 03/24/25 1651 DD/ 1628 TD/TT: 03/24/25 1635 F[employer] Flanging Operator: [facility] External Provider IMG CT PROCEDURES Edited Result - Final * Influenza A B2 ID NOW (Arredondo) (03/24/2025 3:52 PM EDT) IDNOW SERIAL# [id number] [facility] Influenza A Negative Negative [facility] Influenza B2 Negative Negative [facility] Influenza A B2 Note See Note [facility] Comment:The Arredondo ID NOW In fluenza A B2 test is used for thequalitative detection of influenza A and B from patientswith signs and symptoms of respiratory infection.Negative results do not preclude influenza virus infectionand should not be used as the sole basis for diagnosis,treatment or other patient management decisions.There is a risk of false negative results due to thepresence of variants in the viral targets of the assay, lowlevels of virus in the specimen and co- infection withRespiratory Syncytial Virus. 03/24/2025 3:52 PM EDT 03/24/2025 3:58 PM EDT us Generic External Data Provider LAB MICROBIOLOGY - GENERAL ORDERABLES Final Result [facility] [address] [place] [phone] * COVID-19 ID NOW (Make It Work) (03/24/2025 3:52 PM EDT) IDNOW SERIAL# [id number] [facility] COVID-19 TEST Negative Negative [facility] COVID-19 NOTE See Note [facility] Comment: Results are for the identification of SARS-CoV2 RNA. TheSARS-CoV2 RNA is generally detectable in respiratory samplesduring the acute phase of infection. Positive results areindicative of the presence of SARS-CoV-2 RNA; clinicalcorrelation with patient history and other diagnosticinformation is necessary to determine patient infectionstatus. Positive results do not rule out bacterial infectionor co- infection with other viruses.Testing facilities within the [facility] and [facility] are required to report all positive results tothe appropriate public health authorities.Negative results should be treated as presumptive and, ifinconsistent with clinical signs and symptoms or necessaryfor patient management, should be tested with differentauthorized or cleared molecular tests. Negative results donot preclude SARS-CoV2 RNA infection and should not be usedas the sole basis for patient management decisions. Negativeresults should be considered in the context of a patient'srecent exposures, history and the presence of clinical signsand symptoms consistent with COVID-19.This test has been authorized by the FDA under an EmergencyUse Authorization (EUA) for use by authorized laboratories.Testing performed on the Arredondo ID NOW utilizing NAAT. 03/24/2025 3:52 PM EDT 03/24/2025 3:58 PM EDT Generic External Data Provider LAB MOLECULAR [facility] GNOSTICS ORDERABLES Final Result Performing Organization Address [facility] de Phone Number [facility] [address] [place] [phone] * High Sensitivity Troponin I (03/24/2025 3:52 PM EDT) [facility] TROPONIN I HIGH SENSITIVITY <2.7 <3.5 - 17.0 ng/L [facility] Comment:The Arredondo high sens itivity Troponin-I results should beused in conjunction with other diagnostic information suchas ECG, clinical observations and information, and patientsymptoms to aid in the diagnosis of [place]. 03/24/2025 3:52 PM EDT 03/24/2025 3:58 PM EDT Generic External Data Provider LAB BLOOD ORDERAB LES Final Result Performing Organization Address [facility] de Phone Number [facility] [address] [place] [phone] * (ABNORMAL) Comprehensive Metabolic Panel (03/24/2025 3:52 PM EDT) [facility] Sodium 141 135 - 145 mmol/L [facility] Potassium 3.9 3.3 - 5.1 mmol/L [facility] Comment:Slight Hemolysis.Int erpret result with caution. Chloride 111(H) 96 - 108 mmol/L [facility] Carbon Dioxide 23 22 - 29 mmol/L [facility] Anion Gap 11(L) 12 - 20 [facility] Urea Nitrogen (BUN) 14 9 - 16 mg/dL [facility] Creatinine, Serum 0.88 0.5 - 1.4 mg/dL [facility] Creatinine Clr Calc Pharmacy 104.5 [facility] Comment:Provided height and weight: 165.1 cm,117.39 kg.eGFR (calculated from the MDRD study equation) and eCrCl(calculated from the Cockcroft-Gault equation) are based ondifferent parameters and may not yield comparable results.If eCrCl result is absurd, please check patient'sheight/weight. Estimated Glomerular Filt Rate >60 [facility] Comment:Chronic Kidney Disea se: Estimated GFR < 60 mL/min/1.71j8Knrxav Kidney Disease: Estimated GFR < 15 mL/min/1.73m2 Glucose 111 60 - 115 mg/dL [facility] Calcium 8.8 8.4 - 10.2 mg/dL [facility] Bilirubin, Total 0.3 0.0 - 1.0 mg/dL [facility] Aspartate Amino Transferase 25 5 - 31 U/L [facility] Comment:Slight Hemolysis.Int erpret result with caution. Alanine Aminotransferase 17 0 - 31 U/L [facility] Total Protein 7.3 6.5 - 8.0 g/dL [facility] Albumin Level 4.2 3.5 - 5.0 g/dL [facility] Alkaline Phosphatase 85 39 - 117 U/L [facility] 03/24/2025 3:52 PM EDT 03/24/2025 3:58 PM EDT us Generic External Data Provider LAB BLOOD ORDERAB LES Final Result [facility] [address] [place] [phone] * (ABNORMAL) CBC auto differential (03/24/2025 3:52 PM EDT) White Blood Count 10.0 4.8 - 10.8 X10*3/uL [facility] Red Blood Count 4.47 4.20 - 5.50 X10*6/uL [facility] Hemoglobin 11.0(L) 12.0 - 16.0 g/dl [facility] Hematocrit 34.1(L) 37.0 - 47.0 % [facility] Mean Corpuscular Volume 76.3(L) 80.0 - 98.0 fL [facility] Mean Corpuscular Hemoglobin 24.6(L) 27.0 - 33.0 pg [facility] Mean Corpuscular HGB Conc 32.3 31.0 - 35.0 g/dl [facility] Red Cell Distribution Width 15.5 11.0 - 16.0 % [facility] Platelet Count 358 160 - 400 X10*3/uL [facility] Mean Platelet Volume 10.9 9.4 - 12.3 fL [facility] Neutrophils Percent Auto 72.0 45 - 73 % [facility] Imm Gran Pct Auto 0.4 0.0 - 0.4 % [facility] Lymphocytes Percent Auto 17.8(L) 20 - 40 % [facility] Monocytes Percent Auto 7.6 2 - 11 % [facility] Eosinophils Percent Auto 1.7 0 - 4 % [facility] Basophils Percent Auto 0.5 0 - 2 % [facility] NRBC Pct Auto 0.0 0.0 - 0.2 /100WBC [facility] Neutrophils Absolute Auto 7.2 2.0 - 8.3 x10*3/uL [facility] Imm Gran Abs Auto 0.04(H) 0.00 - 0.03 X10*3/uL [facility] Lymphocytes Absolute Auto 1.8 1.2 - 4.9 X10*3/uL [facility] Monocytes Absolute Auto 0.8 0.1 - 1.2 X10*3/uL [facility] Eosinophils Absolute Auto 0.2 0.0 - 0.4 X10*3/uL [facility] Basophils Absolute Auto 0.1 0.0 - 0.2 X10*3/uL [facility] NRBC Abs Auto 0.000 0.0 - 0.012 X10*3/uL [facility] 03/24/2025 3:52 PM EDT 03/24/2025 3:58 PM EDT us Generic External Data Provider LAB BLOOD ORDERAB LES Final Result [facility] [address] [place] [phone] documented in this encounter Visit Diagnoses Not on filedocumented in this encounter Additional Health Concerns Assessment Noted Time PHQ-9 Depression Total Score: 15 024 11:32 AM EST documented as of this encounter Care Teams Veterans' Coordinator Relationship Specialty Start Date End Date Jennie Dang MD [address] [place] [phone] PCP - General Family Medicine 03/24/18 documented as of this encounter
--- OUTSIDE RECORDS SUMMARY | 2025-03-24 19:11 | XMS_ITS | Encounter Summary ---
Author Organization [employer] Address [address] 7[address] [place] [address] Care Team Providers Care Billing Associate Name Role Phone Jennie Dang MD Primary Care Provider + Reason for Visit * Reason Onset Date Comments Med Refill 05/20/2024 Encounter Details Date Type Department Care Team (Late st Contact Info) Description 05/20/2024 Refill [facility] [address] [place], [place] [phone] Jennie Dang MD [address] [place], [place] [phone] Mixed anxiety and depressive disorder Social History [...] Description 05/27/2025 11:15 AM EST Office Visit [facility] [address] [place] [phone] Jennie Dang MD [address] [place] [phone] documented as of this encounter Visit Diagnoses Diagnosis Mixed anxiety and depressive disorder Dysthymic disorder documented in this encounter Additional Health Concerns Assessment Noted Time PHQ-9 Depression Total Score: 15 024 11:32 AM EST documented as of this encounter Care Teams Billing Associate Relationship Specialty Start Date End Date Jennie Dang MD [address] [place] [phone] PCP - General Family Medicine 03/24/18 documented as of this encounter
--- OUTSIDE RECORDS SUMMARY | 2025-03-24 19:11 | XMS_ITS | Encounter Summary ---
Author Organization [employer] Address [address] [place] [address] Care Team Providers Care Medical Care Administrator Name Role Phone Jennie Dang MD Primary Care Provider + Reason for Visit * Reason Comments Med Change Request Encounter Details Date Type Department Care Team ([facility] Contact Info) Description 03/21/2025 Refill [facility] [address] [place], [place] [phone] Jennie Dang MD [address] [place], [place] [phone] Social History Tobacco Use Types Packs/Day Years [...] Description 05/27/2025 11:15 AM EST Office Visit [facility] [address] [place] [address] Jennie Dang MD [address] [place] [phone] documented as of this encounter Visit Diagnoses Not on filedocumented in this encounter Additional Health Concerns Assessment Noted Time PHQ-9 Depression Total Score: 15 024 11:32 AM EST documented as of this encounter Care Teams Medical Care Administrator Relationship Specialty Start Date End Date Jennie Dang MD [address] [place] [phone] PCP - General Family Medicine 03/24/18 documented as of this encounter
--- OUTSIDE RECORDS SUMMARY | 2025-03-24 19:11 | XMS_ITS | Encounter Summary ---
Author Organization [employer] Address [address] [facility] [address]t [place] [address] Care Team Providers Care Burglar Alarm Inspector Name Role Phone Jennie Dang MD Primary Care Provider + Reason for Visit * Reason Onset Date Comments Med Refill 11/09/2024 Encounter Details Date Type Department Care Team (Late st Contact Info) Description 11/09/2024 Refill [facility] [address] [place], [place] [phone] Jennie Dang MD [address] [place], [place] [phone] Social History Tobacco Use Types Packs/Day Years [...] 05/27/2025 11:15 AM EST Office Visit [facility] [address] [place] [address] Jennie Dang MD [address] [place] [phone] documented as of this encounter Visit Diagnoses Not on filedocumented in this encounter Additional Health Concerns Assessment Noted Time PHQ-9 Depression Total Score: 15 024 11:32 AM EST documented as of this encounter Care Teams Burglar Alarm Inspector Relationship Specialty Start Date End Date Jennie Dang MD [address] [place] [phone] PCP - General Family Medicine 03/24/18 documented as of this encounter
--- OUTSIDE RECORDS SUMMARY | 2025-03-24 19:11 | XMS_ITS | Clinical Summary ---
Author Organization [employer] Address [address] [facility] [address] [place] [address] Care Team Providers Care Financial Foundations Associate Name Role Phone Jennie Dang MD Primary Care Provider + Allergies No known active allergies Medications hydrOXYzine pamoate (Vistaril) 25 MG capsuleIndicat ions:Mixed anxiety and depressive disorder 1 tab po bid prn anxiety / 2 tabs po at bedtime prn insomnia/babita ty 120 capsule 09/06/19 23 Active Blood Pressure Monitor kitIndications :Elevated blood pressure reading Use as directed 3x/week 1 kit 10/04/19 23 Active traZODone (Desyrel) 50 MG tablet 1/2 tab po bid prn anxiety attack 30 tablet 1 03/19/20 24 Active sertraline (Zoloft) 100 MG tabletIndicati ons:Mixed anxiety and depressive disorder Take 1.5 tablets (150 mg) by mouth Once per day. 135 tablet 3 03/19/20 24 Active albuterol 108 (90 Base) MCG/ACT inhalerIndicat ions:Influenza A INHALE 2 PUFFS BY MOUTH EVERY 8 HOURS 8.5 g 1 12/26/19 25 Active fluticasone (Flonase) 50 MCG/ACT nasal sprayIndicatio ns:Viral upper respiratory tract infection Administer 1 spray into each nostril Once per day. 16 g 03/15/20 25 025 Active topiramate (Topamax) 25 MG tabletIndicati ons:Ocular migraine Take 1 tablet (25 mg) by mouth at bedtime. 30 tablet 3 03/15/20 25 026 Active Tirzepatide-We ight Management (Zepbound) 2.5 MG/0.5ML solution auto-injectorI ndications:Cla ss 3 severe obesity due to excess calories with serious comorbidity and body mass index (BMI) of 40.0 to 44.9 in adult Inject 0.5 mL (2.5 mg) under the skin 1 (one) time per week. 4 mL 2 03/15/20 25 Active omeprazole (PriLOSEC) [address] capsule TAKE 1 CAPSULE (40 MG) BY MOUTH ONCE PER DAY. 90 capsule 03/23/20 25 Active fluticasone (Flonase) 50 MCG/ACT nasal sprayIndicatio ns:Viral upper respiratory tract infection Administer 1 spray into each nostril Once per day. 16 g 05/15/20 24 025 Discontinued(Re order (will not trigger notification to Pharmacy)) norethindrone (Ortho Micronor) 0.35 MG tablet Take 1 tablet (0.35 mg) by mouth Once per day. 28 tablet 12 09/09/19 25 025 Discontinued(Th erapy completed) ergocalciferol (Vitamin D2) 1.25 MG (76004 UT) capsule Take 1 capsule (1.25 mg) by mouth 1 (one) time per week. 12 capsule 1 09/18/19 25 025 phentermine (Adipex-P) 37.5 MG tabletIndicati ons:Class 3 severe obesity due to excess calories with serious comorbidity and body mass index (BMI) of 40.0 to 44.9 in adult Take 1 tablet (37.5 mg) by mouth before breakfast. 30 tablet 1 12/11/19 25 025 Discontinued(Si de effects) omeprazole (PriLOSEC) [address] capsule Take 1 capsule (40 mg) by mouth Once per day. 30 capsule 01/20/20 25 025 Discontinued Active Problems Problem Noted Date Diagnosed Date Ocular migraine 03/15/2025 Assessment & Plan (03/15/2025 5:07 PM EDT): Start Topamax 25 mg nightly, titrate up as tolerated Take Tylenol as needed Advised to come to acupuncture clinic Cervical paraspinal muscle spasm 03/15/2025 Assessment & Plan (03/15/2025 5:07 PM EDT): Refer to PT, take Tylenol as needed Start Topamax nightly COVID-19 01/12/2025 Assessment & Plan (01/12/2025 2:34 PM EDT): She is on the fourth day of symptoms, continue current treatment with Tylenol, Flonase, nasal saline, albuterol and rest. Seems to have complication with sinusitis. Will give antibiotics and follow-up status check in 2 days Class 3 severe obesity due t o excess calories with serious comorbidity and body mass index (BMI) of 40.0 to 44.9 in adult 12/10/2024 Assessment & Plan (03/15/2025 5:06 PM EDT): Patient did not tolerate phentermine due to increased anxiety and palpitations. DC phentermine and start Zepbound 2.5 mg and titrate up as tolerated, patient is on Topamax for migraine prophylaxis as well which will be titrated up. Continue close follow-up with dietitian and follow-up with me in 2 months I discussed re other weight reduction options including exercise, life style modifications, diet. Recommended to decrease soda and sugary beverage consumption, increase protein intake with meals (at least 1 portion of protein with each meal) to assist with satiety, increase dietary fiber Recommended at least 150 min/week of moderate intensity exercise. Assessment & Plan (12/10/2024 4:00 PM EDT): Discussed re weight reduction options including exercise, life style modifications, diet. Recommended to decrease soda and sugary beverage consumption, increase protein intake with meals (at least 1 portion of protein with each meal) to assist with satiety, increase dietary fiber Recommended at least 150 min/week of moderate intensity exercise. Continue to follow-up with dietitian at work program We discussed regarding medication treatment including phentermine, topiramate, metformin and GLP's. I will start her on phentermine and follow-up in 4 weeks, caution with palpitations, urticaria, anxiety and occasionally decreased libido. Hold for chest pain or significant palpitations, will follow-up BP at next visit Hyperglycemia 03/19/2024 Assessment & Plan (07/09/2024 1:35 PM EST): RO IFG Order RBS and A1c Calculus of gallbladder with out cholecystitis without obstruction 03/19/2024 Assessment & Plan (07/09/2024 1:32 PM EST): Asymptomatic Advised re low fat diet, re consult prn sxs abd pain, nausea, vomiting, icterus, mostly related to meals. Lupus anticoagulant disorder 03/19/2024 Assessment & Plan (03/15/2025 5:03 PM EDT): Was randomly found at an ED visit on 12/18/2023, patient does not have any evidence of any autoimmune disorder (see rheumatology consult). Continue aspirin daily, follow-up with hematology Assessment & Plan (09/16/2024 11:57 AM EDT): Patient currently on Aspirin, no history of thrombotic events. Reach out to Rheumatology for FU. 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 Assessment & Plan (07/09/2024 1:35 PM EST): Incidental dx at ED. Seen by Dr Das and started on ASA prophylaxis pending addtl w/u FU with hematology and reminded to take ASA daily. Elevated blood pressure reading 08/03/2022 Assessment & Plan (12/10/2024 3:59 PM EDT): BP has been within normal limits Advised regarding weight reduction, low salt intake and exercise as tolerated Continue to check BP at each visit, can check BP at home once or twice per week Assessment & Plan (07/10/2024 9:11 PM EST): [...] At high risk for cardiovascular disease 08/03/19 23 Assessment & Plan (08/03/2022 12:07 PM EST): Mother has ACS at age 62 other second degree relatives with ACS. No history of early ACS. Will order lipids, BMP, A1C and FU at next visit. Discussed re weight reduction options including exercise, life style modifications, diet, referral to client relations specialist. Discussed re lower calorie intake, increase dietary fiber Dysmenorrhea 06/27/2022 Mixed anxiety and depressive disorder 06/27/2022 Assessment & Plan (12/10/2024 4:00 PM EDT): She is doing well on Zoloft, will monitor anxiety as she has been started on phentermine Follow-up with me in 4 weeks Assessment & Plan (07/10/2024 9:12 PM EST): [...] Problem Noted Date Diagnosed Date Resolved Date Sinusitis 01/12/2025 03/15/2025 Assessment & Plan (01/12/2025 2:32 PM EDT): As a consequence of COVID URI. Rx Augmentin Use Flonase and nasal saline Reconsult as needed if symptoms do not start improving within 72 hours, advised to complete antibiotics and follow-up at the walk-in clinic or with us in 2 weeks Influenza A 07/10/2024 09/16/2024 Viral upper respiratory tract infection 07/10/2024 03/15/2025 Assessment & Plan (07/10/2024 9:12 PM EST): Rest (sleep at least 8 hours a night). Hydrate with plenty of water (avoid caffeine and alcohol). Use saline nose drops to loosen mucus+ Flonase daily x 5d Take Acetaminophen (Tylenol ) as needed to reduce fever, headache, body aches or discomfort Gargle with salt water and use throat sprays/lozenges for throat pain. Use heated, humidified air. If you do not have a humidifier, take hot showers. Re consult prn if sxs do not improve within 48h with above meds. Bronchitis 05/19/2024 09/16/2024 Assessment & Plan (05/19/2024 1:22 PM EST): Likely complication of recent URI. Rx Z-pack + Albuterol q6h prn cough x 1w + Tylenol prn CP. Out of work today and tomorrow, she says she doesn't need a letter for work. Re consult prn worsening of sxs. Will order labs in 3m to fu w me Precordial pain 03/19/2024 03/15/2025 Assessment & Plan (09/16/2024 11:56 AM EDT): Probably related to GERD. I will start Omeprazole BID X 1 month. According to patient's risk factors especially IFG, I will refer to Cardiology. Assessment & Plan (07/09/2024 1:36 PM EST): Most likely anxiety, obesity? RO IFG Treat anxiety and fu at next RV Encounters Date Type Department Care Team Description 03/24/2025 Orders Only GENERIC EXTERNAL DATA DEPARTMENT Provider, Generic External Data 03/21/2025 Refill [facility] [address] [place] [address] Jennie Dang MD 03/15/2025 3:15 PM EDT Office Visit [facility] [address] [place] [phone] Jennie Dang MD Class 3 severe obesity due to excess calories with serious comorbidity and body mass index (BMI) of 40.0 to 44.9 in adult (Primary Dx); Ocular migraine; Cervical paraspinal muscle spasm; Lupus anticoagulant disorder (CMS/HCC); Viral upper respiratory tract infection 03/15/2025 Travel 03/12/2025 Telephone [facility] [address] [place] [phone] Jennie Dang MD Chart Prep 02/27/2025 9:00 AM EDT Office Visit [facility] [address] [place] [address] Isael Miranda MD Viral URI 02/27/2025 Travel 02/26/2025 Telephone [facility] [address] [place] [phone] Jennie Dang MD Nurse Triage 01/18/2025 Refill [facility] [address], [place] [phone] Jennie Dang MD 12/25/2024 Refill [facility] [address] [place] [phone] Jennie Dang MD Influenza A from Last 3 Months Immunizations Immunization Administration Dates Next Due Influenza injectable quadriv [...] want or need it 11/06 Comments No Intention Date Recorded No desire to become (finding) 0 09/08/2024 Sex and Gender Information Value Date Recorded Sex Assigned at Female 05/07/2022 10:34 AM EDT Legal Sex Female 10:34 AM EDT Gender Identity Female 05/07/2022 10:34 AM EDT Sexual Orientation Choose not to disclose 2021 10:34 AM EDT Last Filed Vital Signs Vital Sign Reading Time Taken Comments Blood Pressure 130/90 03/15/2025 3:08 PM EDT Pulse 79 03/15/2025 3:08 PM EDT Temperature 36.1 C (97 F) 03/15/2025 3:08 PM EDT Respiratory Rate 20 03/15/2025 3:08 PM EDT Oxygen Saturation 99% 03/15/2025 3:08 PM EDT Inhaled Oxygen Concentration - - Weight 118 kg (260 lb 9.6 oz) 03/15/2025 3:08 PM EDT Height 167.6 cm (5' 6 ) 03/15/2025 3:08 PM EDT Body Mass Index 42.06 03/15/2025 3:08 PM EDT Plan of Treatment Upcoming Encounters Date Type Department Care Team (Late st Contact Info) Description 05/27/2025 11:15 AM EST Office Visit [facility] [address] [place] [phone] Jennie Dang MD [address] [place], [place] [phone] Health Maintenance Due Date Last Done Comments HPV Vaccines (1 - 3-dose series) 1995 DTaP/Tdap/Td Vaccines (1 - Tdap) 1999 Hepatitis B Vaccines (1 of 3 - 19+ 3-dose series) 1999 Cervical Cancer Screening 08/05/2023 HPV/Cotest 08/05/2023 08/05/2020 Pap Smear 08/05/2023 08/05/2020, 08/05/2020 Depression Monitoring 11/12/2024 2024 , 2024 COVID-19 Vaccine (4 - 2024-2 6 season) 2025 06/23/2021, 12/06/2020, 11/04/2020 Influenza Vaccine (#1) 2025 , 08/13/2019, 03/24/2018 Family Planning (PISQ) 09/08/2025 09/08/2024 Alcohol/Substance Use Screening 11/06/2025 11/06/2024 SDOH Screening 12/01/2025 12/01/2024 Disability Screening 12/10/2025 12/10/2024 Tobacco Screening 03/15/2026 03/15/2025 Mammogram 10/05/2026 10/05/2024 Lipid Panel 09/16/2029 09/16/2024, [...] Years) and At-Risk Patients (6 to 49) Years Aged Out No longer eligible b ased [...] CONTRAST Routine 03/24/2025 4 :28 PM EDT COVID-19 ID NOW (ARREDONDO) Routine 03/24/2025 3:52 PM EDT HIGH SENSITIVITY TROPONIN I Routine 03/24/2025 3:52 PM EDT COMPREHENSIVE METABOLIC PANEL Routine 03/24/2025 3:52 PM EDT CBC WITH AUTO DIFFERENTIAL Routine 03/24/2025 3:52 PM EDT INFLUENZA A B2 ID NOW (ARREDONDO) Routine 03/24/2025 3:52 PM EDT POCT RAPID COVID ANTIGEN Routine 02/27/2025 9:27 AM EDT Viral URI POCT INFLUENZA B (ID NOW RAPID MOLECULAR) Routine 02/27/2025 9:27 AM EDT Viral URI POCT INFLUENZA A (ID NOW RAPID MOLECULAR) Routine 02/27/2025 9:24 AM EDT Viral URI BI MAMMOGRAM SCREENING TOMOSYNTHESIS BILATERAL Routine 10/05/2024 9:15 AM EDT Breast cancer screening by mammogram LIPID PANEL WITH REFLEX TO DIRECT LDL Routine 09/16/2024 11:27 AM EDT Elevated blood pressure reading HPV MRNA E6/E7 Routine 08/05/2020 12:00 AM EST PAP SMEAR Routine 08/05/2020 12:00 AM EST ZZZ HISTORICAL HEPATITIS C ANTIBODY RFLX Routine 08/13/2019 2:30 PM EST ZZZ HISTORICAL HIV AB/AG Routine 08/13/2019 2:30 PM EST from Last 3 Months or Most Recently Relevant to Health Maintenance Results * (ABNORMAL) Partial Thromboplastin Time, Activated (APTT) (03/24/2025 4:40 PM EDT) Partial Thromboplastin Time 58.3(H) 26.7 - 34.1 SEC [facility] 03/24/2025 4:40 PM EDT 03/24/2025 4:43 PM EDT us Generic External Data Provider LAB BLOOD ORDERAB LES Final Result [facility] [address] [place] [phone] * (ABNORMAL) Prothrombin Time-INR (03/24/2025 4:40 PM EDT) Prothrombin Time 10.6(L) 10.9 - 12.4 SEC [facility] INTERNATIONAL NORM RATIO 0.9 0.9 - 1.1 [facility] Comment:INTERNATIONAL NORMAL IZED RATIO (INR) [...] ORDERAB LES Final Result Performing Organization Address [facility] Co de Phone Number [facility] [address] [place] [phone] * hCG, Total, Quantitative (03/24/2025 4:40 PM EDT) HCG Quantitative <2 mIU/mL [facility] Comment:Weeks post LMP Appro ximate hCG(Last Menstrual Period) Range (mIU/ml)3 - 4 weeks 9 - 1304 - 5 weeks 75 - 2,6005 - 6 weeks 850 - 20,8006 - 7 weeks 4000 - 100,2007 - 12 weeks 11,500 - 289,85418 - 16 weeks 18,300 - 137,49827 - 29 weeks (2nd trimester) 1,400 - 53,33320 - 41 weeks (3rd trimester) 940 - [...] ORDERAB LES Final Result Performing Organization Address [facility]/ZIP Co de Phone Number [facility] [address] [place] [phone] * CT Head w/o Contrast (03/24/2025 4:28 PM EDT) Anatomical Region Laterality Modality Head, Neck Computed Tomogra phy 03/24/2025 4:28 PM EDT Narrative 03/24/2025 4:54 PM EDT [place] [address] [address] Scan Report Signed Patient: Ingris Parham MR#: [id number] : 1980 Acct:[id number] Age/Sex: 44 / F ADM Date: 03/24/25 Loc: HO.ED Attending Dr: Ordering Physician: Alin Gr Date of Service: 03/24/25 Procedure(s): CT head/brain wo IV con Accession Number(s): [id number] cc: Alin Gr; Jennie Dang MD Report Number: [id number]: Total DLP = 639.00 mGy-cm Reason for [...] Alex Amin MD 03/24/2025 04:51 PM EDT Dictated By: Alex Amin MD Signed By: <Electronically signed by Alex Amin MD in OV> 03/24/25 1651 DD/ 1628 TD/TT: 03/24/25 1635 Bolt Sorter: Procedure Note Donotuseinterpreter, Image - 03/24/[address] [place] [address] [address] Scan Report Signed Patient: Nic Parham#: [id number] : 1980Acct:[id number] Age/Sex: 44 / FADM Date: 03/24/25 Loc: .ED Attending Dr: Ordering Physician: Alin Gr Date of Service: 03/24/25 Procedure(s): CT head/brain wo IV con Accession Number(s): [id number] cc: Alin Gr; Jennie Dang MD Report Number: [id number]: Total DLP = 639.00 mGy-cm Reason for [...] Alex Amin MD 03/24/2025 04:51 PM EDT Dictated By: Alex Amin MD Signed By: <Electronically signed by Alex Amin MD in OV> 03/24/25 1651 DD/ 1628 TD/TT: 03/24/25 1635 Bolt Sorter: [facility] External Provider IMG CT PROCEDURES Edited Result - Final * Influenza A B2 ID NOW (Arredondo) (03/24/2025 3:52 PM EDT) IDNOW SERIAL# [id number] [facility] Influenza A Negative Negative [facility] Influenza B2 Negative Negative [facility] Influenza A B2 Note See Note [facility] Comment:The Arredondo ID NOW In [...] PM EDT Generic External Data Provider LAB MICROBIOLOGY - GENERAL ORDERABLES Final Result [facility] [address] [place] [phone] * COVID-19 ID NOW (ARREDONDO) (03/24/2025 3:52 PM EDT) IDNOW SERIAL# [id number] [facility] COVID-19 TEST Negative Negative [facility] COVID-19 NOTE See Note [facility] Comment: Results are for the identification of SARS-CoV2 RNA. TheSARS-CoV2 RNA is generally detectable in respiratory samplesduring the acute phase of infection. Positive results areindicative of the presence of SARS-CoV-2 RNA; clinicalcorrelation with patient history and other diagnosticinformation is necessary to determine patient infectionstatus. Positive results do not rule out bacterial infectionor co- infection with other viruses.Testing facilities within the [facility] and [facility] are required to report all positive results [...] use by authorized laboratories.Testing performed on the [employer] ID NOW utilizing NAAT. 03/24/2025 3:52 PM EDT 03/24/2025 3:58 PM EDT us Generic External Data Provider LAB MOLECULAR [facility]NOST[facility] ORDERABLES Final Result Performing Organization Address [facility] de Phone Number [facility] [address] [place] [phone] * High Sensitivity Troponin I (03/24/2025 3:52 PM EDT) TROPONIN I HIGH SENSITIVITY <2.7 <3.5 - 17.0 ng/L [facility] Comment:The Arredondo high sens itivity Troponin-I results should beused in conjunction with other diagnostic information suchas ECG, clinical observations and information, and patientsymptoms to aid in the diagnosis of MT. 03/24/2025 3:52 PM EDT 03/24/2025 3:58 PM EDT us Generic External Data Provider LAB BLOOD ORDERAB LES Final Result Performing Organization Address [facility] Co de Phone Number [facility] [address] [place] [phone] * (ABNORMAL) CBC auto differential (03/24/2025 3:52 PM EDT) White Blood Count 10.0 4.8 - 10.8 X10*3/uL [facility] Red Blood Count 4.47 4.20 - 5.50 X10*6/uL [facility] Hemoglobin 11.0(L) 12.0 - 16.0 g/dl [facility] Hematocrit 34.1(L) 37.0 - 47.0 % [facility] Mean Corpuscular Volume 76.3(L) 80.0 - 98.0 fL [facility] Mean Corpuscular Hemoglobin 24.6(L) 27.0 - 33.0 pg [facility] Mean Corpuscular HGB Conc 32.3 31.0 - 35.0 g/dl [facility] Red Cell Distribution Width 15.5 11.0 - 16.0 % [facility] Platelet Count 358 160 - 400 X10*3/uL [facility] Mean Platelet Volume 10.9 9.4 - 12.3 fL [facility] Neutrophils Percent Auto 72.0 45 - 73 % [facility] Imm Gran Pct Auto 0.4 0.0 - 0.4 % [facility] Lymphocytes Percent Auto 17.8(L) 20 - 40 % [facility] Monocytes Percent Auto 7.6 2 - 11 % [facility] Eosinophils Percent Auto 1.7 0 - 4 % [facility] Basophils Percent Auto 0.5 0 - 2 % [facility] NRBC Pct Auto 0.0 0.0 - 0.2 /100WBC [facility] Neutrophils Absolute Auto 7.2 2.0 - 8.3 x10*3/uL [facility] Imm Gran Abs Auto 0.04(H) 0.00 - 0.03 X10*3/uL [facility] Lymphocytes Absolute Auto 1.8 1.2 - 4.9 X10*3/uL [facility] Monocytes Absolute Auto 0.8 0.1 - 1.2 X10*3/uL [facility] Eosinophils Absolute Auto 0.2 0.0 - 0.4 X10*3/uL [facility] Basophils Absolute Auto 0.1 0.0 - 0.2 X10*3/uL [facility] NRBC Abs Auto 0.000 0.0 - 0.012 X10*3/uL [facility] 03/24/2025 3:52 PM EDT 03/24/2025 3:58 PM EDT us Generic External Data Provider LAB BLOOD ORDERAB LES Final Result [facility] [address] [place] [phone] * (ABNORMAL) Comprehensive Metabolic Panel (03/24/2025 3:52 PM EDT) Sodium 141 135 - 145 mmol/L [facility] Potassium 3.9 3.3 - 5.1 mmol/L [facility] Comment:Slight Hemolysis.Int erpret result with caution. Chloride 111(H) 96 - 108 mmol/L [facility] Carbon Dioxide 23 22 - 29 mmol/L [facility] Anion Gap 11(L) 12 - 20 [facility] Urea Nitrogen (BUN) 14 9 - 16 mg/dL [facility] Creatinine, Serum 0.88 0.5 - 1.4 mg/dL [facility] Creatinine Clr Calc Pharmacy 104.5 [facility] Comment:Provided height and weight: 165.1 cm,117.39 kg.eGFR (calculated from the MDRD study equation) and eCrCl(calculated from the Cockcroft-Gault equation) are based ondifferent parameters and may not yield comparable results.If eCrCl result is absurd, please check patient'sheight/weight. Estimated Glomerular Filt Rate >60 [facility] Comment:Chronic Kidney Disea se: Estimated GFR < 60 mL/min/1.23w6Hvusqa Kidney Disease: Estimated GFR < 15 mL/min/1.73m2 Glucose 111 60 - 115 mg/dL [facility] Calcium 8.8 8.4 - 10.2 mg/dL [facility] Bilirubin, Total 0.3 0.0 - 1.0 mg/dL [facility] Aspartate Amino Transferase 25 5 - 31 U/L [facility] Comment:Slight Hemolysis.Int erpret result with caution. Alanine Aminotransferase 17 0 - 31 U/L [facility] Total Protein 7.3 6.5 - 8.0 g/dL [facility] Albumin Level 4.2 3.5 - 5.0 g/dL [facility] Alkaline Phosphatase 85 39 - 117 U/L [facility] 03/24/2025 3:52 PM EDT 03/24/2025 3:58 PM EDT Generic External Data Provider LAB BLOOD ORDERAB LES Final Result Performing Organization Address [facility] Co de Phone Number [facility] [address] [place] [phone] * POCT Rapid Influenza B ARREDONDO ID NOW (02/27/2025 9:27 AM EDT) [facility] Influenza B Negative Negative, Indeterminate [facility] Swab 02/27/2025 9:27 AM EDT Isael Miranda MD POINT OF CARE TEST ENTER/EDIT OR DERABLES Final Result Performing Organization Address [facility] Co de Phone Number [facility] [address] [place] [phone] * POCT Rapid Covid-19 BinaxNOW (02/27/2025 9:27 AM EDT) [facility] Rapid COVID Ag Negative Swab 02/27/2025 9:27 AM EDT Isael Miranda MD POINT OF CARE TEST ENTER/EDIT OR DERABLES Final Result * POCT Rapid Influenza A ARREDONDO ID NOW (02/27/2025 9:24 AM EDT) Influenza A Negative Negative, Indeterminate [facility] Swab 02/27/2025 9:24 AM EDT Isael Miranda MD POINT OF CARE TEST ENTER/EDIT OR DERABLES Final Result [facility] [address] [place] [phone] * BI Mammogram Screening Tomosynthesis Bilateral (10/05/2024 9:15 AM EDT) Anatomical Region Laterality Modality Breast Bilateral Mammography 10/05/2024 9:15 AM EDT Narrative 10/10/2024 5:43 PM EDT [address] [place] [address] Mammography Report Signed Patient: Ingris Parham MR#: [id number] : 1980 Acct:[id number] Age/Sex: 44 / F ADM Date: 10/05/24 Loc: HO.MAMMO Attending Dr: Belén Carpio CNM Ordering Physician: BELÉN CARPIO CNM Results: 1 Negative Date of Service: 10/05/24 Follow Up: 1 Year From [facility] Mammogram Procedure(s): MM tomosynthesis screening BI Accession Number(s): [id number] cc: Jennie Dang MD; BELÉN CARPIO CNM EXAMINATION: MM SCREENING DIGITAL BREAST [...] Susie Charles DO 10/10/2024 05:40 PM EDT RP Dictated By: Susie Charles DO Signed By: <Electronically signed by Susie Charles DO in OV> 10/10/24 1740 DD/ 4 TD/TT: 10/05/24929 Bolt Sorter: Procedure Note Donotuseinterpreter, Image - 10/10/2024 [facility] [address] [place], [place] [address] Mammography Report Signed Patient: Nci Parham#: [id number] : 1980Acct:[id number] Age/Sex: 44 / FADM Date: 10/05/24 Loc: HO.MAMMO Attending Dr: Belén Carpio CNM Ordering Physician: BELÉN CARPIOesults: 1 Negative Date of Service: 10/05/24Follow Up: 1 Year From [facility] Mammogram Procedure(s): MM tomosynthesis screening BI Accession Number(s): [id number] cc: Jennie Dang MD; BELÉN CARPIO CNM EXAMINATION: MM SCREENING DIGITAL BREAST [...] Susie Charles DO 10/10/2024 05:40 PM EDT RP Dictated By: Susie Charles DO Signed By: <Electronically signed by Susie Charles DO in OV> 10/10/24 1740 DD/ 4 TD/TT: 10/05/24929 Bolt Sorter: us Belén Carpio CNM IMG BI PROCEDURES Edited Result - Final * Lipid Panel with Reflex to Direct LDL (09/16/2024 11:27 AM EDT) Triglycerides 100 <150 mg/dL [facility] Comment:Desirable Triglyceri de: less than 150 mg/dLBorderline High Triglyceride 150-199 mg/dLHigh Triglyceride: 200-499 mg/dLVery High Triglyceride: greater than or equal to 5OO mg/dL Cholesterol 128 <200 mg/dL [facility] Comment:Desirable Cholestero l: less than 200 mg/dLBorderline High Cholesterol: 200-239 mg/dLHigh Cholesterol: greater than 239 mg/dL LDL Cholesterol Calculated 67 <100 mg/dL [facility] Comment:Desirable LDL: less than 100 mg/dLNear Optimal/Above Optimal LDL: 110- 129 mg/dLBorderline High LDL: 130-159 mg/dLHigh LDL: 160-189 mg/dLVery High LDL: greater than or equal to 190 mg/dL HDL Cholesterol 41 >40 mg/dL [facility] Comment:Desirable HDL: great er than 40 mg/dL Note: This HDL assay may give artificially low results in patients with liver disease. Blood 09/16/2024 11:2 7 AM EDT 09/16/2024 1:50 PM EDT us Jennie Dang MD LAB BLOOD ORDERABLES Fin al Result [facility] [address] [place] [address] [phone] * HPV mRNA E6/E7 (08/05/2020 12:00 AM EST) HPV nRNA E6/E7 Not Detected Not Detected [facility] Comment: Methodology: Perinatal Tech-Mediated Amplification This assay detects E6/E7 viral messenger RNA (mRNA) from 14 high-risk HPV types (16,18,31,33,35,39,45,51,52,56,58,59,66,68). The analytical performance characteristics of this assay have been determined by [employer]. The modifications have not been cleared or approved by the FDA. This assay has been validated pursuant to the CLIA regulations and is used for clinical purposes. For additional information, please refer to http://education.[employer]/POY541b4 (This link if provided for information/ educational purposes only.) 08/05/2020 Jennie Dang MD LAB BLOOD ORDERABLES Fin al Result Performing Organization Address [facility] Co de Phone Number [facility] [address] * Pap Smear (08/05/2020 12:00 AM EST) Swab Historical Provider LAB CYTOLOGY ORDERABLES F inal Result Performing Organization Address [facility] Co de Phone Number [facility] [address] [place] [address] [phone] * HEPATITIS C ANTIBODY RFLX (08/13/2019 2:30 PM EST) HEPATITIS C ANTIBODY NONREACTIVE NONREACTIVE [facility] Comment: Antibodies to HCV not detected; does not exclude early acute HCV infection. 08/13/2019 2:30 PM EST Jennie Dang MD HISTORICAL/NON ORDERABLE LABS Final Result Performing Organization Address [facility] Co de Phone Number [facility] [address] * HIV AB/AG (08/13/2019 2:30 PM EST) HIV AG/AB NONREACTIVE NR [facility] Comment: HIV-1 p24 Ag and/or HIV-1/HIV-2 Ab not detected. A test result that is nonreactive does not exclude the possibility of exposure to or infection with HIV-1 and/or HIV-2. Nonreactive results in this assay for individuals with prior exposure to HIV-1 and/or HIV-2 may be due to antigen and antibody levels that are below the limit of detection of this assay. The [employer] HIV Ag/Ab Combo assay result and supplemental assay results should be interpreted in conjunction with the patient's clinical presentation, history and other laboratory results. If the results are inconsistent with clinical evidence, additional testing is suggested to confirm the result. 08/13/2019 2:30 PM EST Jennie Dang MD HISTORICAL/NON ORDERABLE LABS Final Result [facility] [address] from Last 3 Months or Most Recently Relevant to Health Maintenance Insurance [facility] OPEN ACCESS Care Teams Financial Found[employer] Associate Relationship Specialty Start Date End Date Jennie Dang MD [address] [place] [id number] PCP - General Family Medicine 03/24/18
== END 2025-03-24 18:20 | disposition home or self-care (01) ==
PROVIDERS: Physician Assistant; Physician Assistant Medical; Emergency Provider Student in an Organized Health Care Education/Training Program; PCP Internal Medicine
DX: J32.9 Chronic sinusitis, unspecified (principal); F41.9 Anxiety disorder, unspecified; R51.9 Headache, unspecified; H53.2 Diplopia; R20.0 Anesthesia of skin; R00.0 Tachycardia, unspecified; R10.2 Pelvic and perineal pain; Z79.899 Other long term (current) drug therapy; Z11.52 Encounter for screening for COVID-19
CPT/HCPCS: 36415; 70450; 80053; 84484; 84702; 85025; 85610; 85730; 87502; 87635; 93005; 99284; 99285

== ENCOUNTER → 2025-03-24 15:25 | Outpatient (BNV) | payer OTHER, SELFPAY | PROVIDERS: Emergency Provider Student in an Organized Health Care Education/Training Program; PCP Internal Medicine; Visit Provider Internal Medicine | DX: R00.0 Tachycardia, unspecified (principal) | CPT/HCPCS: 93010 ==

== ENCOUNTER → 2025-03-24 15:25 | Outpatient (BNV) | payer OTHER, SELFPAY | PROVIDERS: Emergency Provider Student in an Organized Health Care Education/Training Program; PCP Internal Medicine; Visit Provider Radiology Diagnostic Radiology | DX: J32.1 Chronic frontal sinusitis (principal) | CPT/HCPCS: 70450 ==

== ENCOUNTER 2025-04-14 10:04 | Emergency (ER) | payer MEDICAID, SELFPAY ==
[2025-04-14 10:19] VITALS: BP 138/75; PULSE 94; RESP 16; TEMP 37; O2SAT 100; BMI 42.1
--- NOTE | 2025-04-14 10:19 | ED.GENADULT ---
HPI - General Adult General Chief complaint: Headache Stated complaint: CHANEL since saturday with dizziness and leg weakness Time Seen by Provider: 04/14/25 12:29 Source: patient Mode of arrival: ambulatory Limitations: no limitations History of Present Illness ED Provider: HPI narrative: 44-year-old woman with a history of antiphospholipid syndrome, not on control pills, not on any blood thinners, states she typically has headaches around her menstrual cycle and this is what happened this time she started developing headache around her menstrual cycle however instead of lasting 24 hours it has been lasting for the past 3 days, she states she has spinning sensation especially when she turns her head she has had vertigo in the past, no visual changes, no weakness in upper or lower extremities such as motor or sensory deficits she states however when she stands her legs can be a little shaky. No fevers or chills no nausea or vomiting or diaphoresis reported. Related Data Home Medications ?Medication ?Instructions ?Recorded ?Confirmed norethindrone (contraceptive) 0.35 mg PO DAILY 09/28/24 12/25/24 mg tablet omeprazole 40 mg capsule,delayed 40 mg PO DAILY 09/28/24 12/25/24 release Previous Rx's ?Medication ?Instructions ?Recorded acetaminophen 500 mg tablet 500 mg PO Q6H PRN pain or fever 01/04/21 (Tylenol Extra Strength) #20 tabs hydroxyzine HCl 25 mg tablet 25 mg PO TID PRN anxiety #20 tabs 11/14/23 aspirin 81 mg tablet,delayed 81 mg PO DAILY #90 tabs 04/13/25 release Allergies Allergy/AdvReac Type Severity Reaction Status Date / Time NSAIDS (Non-Steroidal AdvReac Unknown Verified 04/14/25 10:24 Anti-Inflamma Review of Systems Constitutional: Constitutional: Reports as per HPI [facility] Past Medical History Medical History Pyelonephritis Kidney stone Anxiety PTSD (post-traumatic stress disorder) Surgical History Hx of one miscarriage Hx of nephrolithotomy with removal of calculi Family History Family History Father No problems noted. Mother No problems noted. Social History Social History Household Members: Family Alcohol intake: current Alcohol intake frequency: a few times a month Patient Tobacco Use Status: Never used Tobacco Advance Directives: No Advance Directives Information Provided: Yes service: No Current occupational status: employed Physical Exam ED Vital Signs: Vital Signs - 24 hr 04/14/25 10:19 04/14/25 11:58 Temperature 98.6 F Pulse Rate 94 84 Respiratory Rate 16 16 Blood Pressure 138/75 134/78 Pulse Oximetry 100 99 Oxygen Delivery Method Room Air Room Air BMI result Body Mass Index 42.1 Const Other: General: ?Appears of stated age ? ?visual espinosa are intact ? ?Resp: ?No wheezing rales rhonchi no stridor moving air well ? ?MSK: FROM, strength 5/5 all extremities ? Skin: Warm, dry, intact, ? ?Neuro: ?Alert and oriented x3, moving upper and lower extremities symmetrically, no obvious facial asymmetry noted, cranial nerves 2-12 intact, right-sided horizontal nystagmus without vertical or rotary component, no dysmetria upper or lower extremities, did not elicit weakness or sensory deficits bilateral lower extremities Course Course Course Narrative: This is a rapid medical exam performed by Nirali Rod NP: Additional HPI, ROS, PE not included below will be deferred to primary provider. Patient is a 44y/o F presenting with headache since Saturday. Dizziness since yesterday, worse today. Legs feel weak today also. Using Tylenol and ice packs without relief. BP 150/100 at home. Not on antihypertensives. Plan: viral swabs Medications Administered Discontinued Medications Generic Name Dose Route Start Last Admin Trade Name Freq PRN Reason Stop Dose Admin Acetaminophen/Butalbital/Caffeine 1 tab 04/14/25 12:34 04/14/25 13:47 Butalb/Acetamin/Caff 50/325/40 Tablet PO 04/14/25 12:35 1 tab ONCE ONE Administration Diazepam 2 mg 04/14/25 13:43 04/14/25 13:55 Diazepam 2 Mg Tablet PO 04/14/25 13:44 2 mg ONCE ONE Administration Meclizine HCl 12.5 mg 04/14/25 12:34 04/14/25 13:48 Meclizine Hcl 12.5 Mg Tablet PO 04/14/25 12:35 12.5 mg ONCE ONE Administration Scopolamine 1.5 mg 04/14/25 12:34 04/14/25 13:48 Scopolamine 1.5 Mg Patch.Td.3 EAR-BEHIND 04/14/25 12:35 1.5 mg ONCE ONE Administration Medical Decision Making Medical Decision Making [facility] Narrative: 12:46 PM 04/14/2025 (Dr. Seb Ponce): Patient with APS with a recurrent headache, the only new feature is that she has had a headache for past 3 days instead of her typical 24 hours associated with her menstrual cycle, she is not on any control pills, she has no neurologic deficits there was evidence for benign positional vertigo on the right and she is experiencing positional symptoms, did not feel further imaging such as CT is indicated at least at the time of my initial evaluation, we will medicate we will re-evaluate, APLS can not be risk factors for cavernous venous thrombosis but I did not find any neurologic deficits for that consideration. 2:40 PM 04/14/2025 (Dr. Seb Ponce): Significant improvement in her symptoms, her mom is here to pick her up, patient will be discharged Differential Diagnosis Differential Diagnoses: The differential diagnosis associated with the presentation includes (Tension headache, migraine headache, temporal arteritis, cavernous venous thrombosis, subarachnoid hemorrhage, cerebellar stroke) Admission/Observation Consideration of admission/observation: Escalation of care including admission/observation considered Lab Data MDM Lab Attestation statement: I reviewed the patient's lab results. Labs: Lab Results 04/14/25 Range/Units 10:39 COVID-19 (MONIKA) Negative (Negative) COVID-19 Clin Com See Note Influenza Type A (BECK) Negative (Negative) Influenza Type B (BECK) Negative (Negative) Influenza A & B Note See Note External Record Review External record reviewed: Office record Tests considered The following testing was considered but not selected: CT brain Discharge Plan Discharge Clinical Impression: Bad headache Patient Disposition: Home, Self-Care Instructions: General Headache (ED) Additional Instructions: I am glad you are feeling better, continue hydrating well, take acetaminophen 975 mg every 6 hours around the clock as needed for pain, worsening symptoms concerns come back to the ER Prescriptions: No Action aspirin 81 mg Tablet,Delayed Release (Dr/Ec) 81 mg PO DAILY Qty: 90 14RF acetaminophen [Tylenol Extra Strength] 500 mg tablet 500 mg PO Q6H PRN (Reason: pain or fever) Qty: 20 0RF hydroxyzine HCl 25 mg tablet 25 mg PO TID PRN (Reason: anxiety) Qty: 20 0RF norethindrone (contraceptive) 0.35 mg tablet PO DAILY omeprazole 40 mg capsule,delayed release(DR/EC) 40 mg PO DAILY Print Language: Serbian
[2025-04-14 11:08] LABS: COVID-19 Test Negative (Negative); IDNOW Serial# 08D9AD1C
[2025-04-14 11:25] LABS: IDNOW Serial# 08D9AD1C; Influenza B2 Negative (Negative)
[2025-04-14 11:58] VITALS: BP 134/78; PULSE 84; RESP 16; O2SAT 99
[2025-04-14] MEDS: Butalb/Acetamin/Caff 50/325/40 TABLET 1 TAB PO (13:47)
[2025-04-14 15:12] VITALS: BP 139/86; PULSE 72; RESP 14; TEMP -17.7; TEMP 0; O2SAT 100
== END 2025-04-14 15:13 | disposition home or self-care (01) ==
PROVIDERS: Registered Nurse Emergency; Emergency Provider Emergency Medicine; PCP Internal Medicine
DX: R51.9 Headache, unspecified (principal); R42 Dizziness and giddiness; R53.1 Weakness; Z79.899 Other long term (current) drug therapy; Z11.52 Encounter for screening for COVID-19
CPT/HCPCS: 87502; 87635; 99283